=== PATIENT | male | born 1955 | race African-American/Black ===

== ENCOUNTER 2019-08-13 13:50 | Inpatient (IN) | payer MEDICARE, MEDICAID ==
[2019-08-13] MEDS: Piperacillin/Tazobactam 2.25 GM in Sodium Chloride 0.9% 100 ML IVPB SCH (16:03)
--- NOTE | 2019-08-13 16:21 | PDOC.HHP ---
Hospitalist HPI - History of Present Illness altered mental state respiratory failure History of Present Illness: most of the history is obtain from transfer records and transfer physician, patient is disoriented on bipap and is not following commands. Case of an 64y/o male with pmhx of morbid obesity, ckd, hypoventilation syndrome , possible kristen and chronic anemia who went to [facility] due to sob. apparently patient was on his usual state of health until they day of admission 08/09/19 when he started with pronounce sob for which he was taken from his half-way in [place] to the hospital for evaluation. there patient was found to be on symptomatic bradycardia wit the pulse in the 30s and was treated with atropine with improvement of symptoms and admitted for cardiology evaluation. pt also was diagnosed with decompensated systolic failure and treated with diuresis, for which he later developed santi over ckd. during hospitalization patient with clinical decline with worsening altered mental state and worsening respiratory status likely secondary to bradycardia. PPM was placed and patient had a temporary improvement before starting to decline. currently patient is with altered mental state and respiratory failure for which transfer was requested for pulmo / crit evaluation, at this institution. Hospitalist ROS - Review of Systems ROS unobtainable: due to mental status - Medication Medications: Active Medications Generic Name Dose Route Start Last Admin Trade Name Freq PRN Reason Stop Dose Admin Piperacillin Sod/Tazobactam 100 mls @ 200 mls/hr 08/13/19 15:00 08/13/19 16: 03 Sod 2.25 gm/ Sodium Chloride IVPB 100 mls 0700,1500,2300 BHARATHI Administration Hospitalist History - Past Medical History Cardiac: reports: CHF - Past Surgical History Other Surgical History: face mass - Family History Family History: reports: no pertinent history - Social History Other Social History: unable to asses due to mental status - Exam General Appearance: ill appearing Eye: PERRL ENT: normocephalic atraumatic, no oropharyngeal lesions Neck: supple, symmetric, no JVD Heart: RRR, no murmur, no gallops Respiratory: CTAB, no wheezes, no rales Gastrointestinal: soft, non-tender, non-distended Extremities: 2+ LE edema Neurological: cranial nerve grossly intact, no focal deficits Musculoskeletal: generalized weakness Psychiatric: not oriented, somnolent, lethargic Hospitalist H&P A/P - Plan Plan: acute on chronic hypoxic and hypercapnic resp failure - currently on bipap, 02 sat in the upper 90s. pulmo / crit consulted, recommended continued bipap for now, f/u abgs. patient morbid obese with likely hypoventilation syndrome and kristen sinus bradycardia - s/p ppm placement 08/12/19, collections attorney dr zazueta will be consulted acute on chronic systolic chf s/p diuresis, recently started half normal with d5 as per jacker. will consult and follow recommendations acute on chronic renal failure - monitor u/o and cr value, jacker was consolted altered mental state - likely secondary to resp failure hypoxic/hypercapnic. currently on bipap, acidosis improved. r/o metabolic causes. tsh 4.7 ammonia pending, ordered today in CS. f/u cmp. will pancultivate to r/o any infection. prophylactically covered w zosyn acute on chronic anemia - hx of chronic anemia, had traumatic sales placement with hematuria, monitor h/h and transfused as needed morbid obesity htn - continue home meds when able dyslipidemia - continue home meds when able gout - continue home meds when able chronic thrombocytopenai - monitor plts levels, tranfuse if 10 or below
[2019-08-13 17:51] LABS: #Eosinphils 0.1 thou/uL (0.0-0.7); #Lymphocytes 0.9 thou/uL (1.20-3.40); #Monocytes 0.6 thou/uL (0.11-0.59); #Neutrophils 5.6 thou/uL (1.40-6.50); %Basophils 0.2 % (0.0-1.0); %Eosinophils 0.8 % (0.0-10.0); %Lymphocytes 12.3 % (21.0-51.0); %Neutrophils 78.8 % (42.0-75.0); Hemoglobin 8.6 g/dL (14.0-18.0); Mean Corpuscular HGB CONC 28.7 g/dL (32.0-36.0); Mean Corpuscular Hemoglobin 24.4 pg (27.0-31.0); Mean Platelet Volume 8.5 fL (7.4-10.4); Platelet Count 83 thou/uL (130-400); Red Blood Cell (RBC) Count 3.55 mill/uL (4.70-6.10); White Blood Cell (WBC) Count 7.1 thou/uL (4.8-10.8)
[2019-08-13 17:56] LABS: ALT (SGPT) 10 U/L (8-55); AST (SGOT) 23 U/L (5-34); Albumin 2.8 g/dL (3.4-4.8); Alkaline Phosphatase 102 U/L (40-110); Anion Gap 14 mmol/L (10-20); BUN (Urea Nitrogen) 87 mg/dL (8.4-25.7); Bilirubin, Total 0.6 mg/dL (0.2-1.2); Calc. Creatinine Clearance 83 mL/min (70-130); Calcium 8.8 mg/dL (7.8-10.44); Carbon Dioxide 32 mmol/L (23-31); Chloride 103 mmol/L (98-107); Estimated GFR-MDRD 33; Globulin 4.8 g/dL (2.4-3.5); Glucose 82 mg/dL (80-115); Potassium 5.3 mmol/L (3.5-5.1); Protein, Total 7.6 g/dL (5.8-8.1); Sodium 144 mmol/L (136-145)
[2019-08-13 17:58] LABS: Hypochromia SLIGHT = 6-15 cells (100X) (0-5/hpf); MDiff Complete? YES; Ovalocytes SLIGHT = 2-5 cells (100X) (0-1/hpf); Platelet Morphology Comment Appears Decreased; Polychromasia SLIGHT = 2-3 cells (100X) (0-2/hpf)
[2019-08-13] MEDS: Furosemide 20 MG/2 ML VIAL IVP SCH (18:00)
[2019-08-13 19:00] LABS: Bilirubin Negative (Negative); Blood, Urine 2+ (Negative); Clarity Clear (Clear); Glucose, Urine (Dipstick) Normal (Negative); Leukocyte 500 Leu/uL (Negative); Nitrite Negative (Negative); Protein, Urine (Dipstick) 20 mg/dL (Neg-Trace); RBC/HPF Greater than 50 HPF (0-3); Squamous Epithelial None Seen HPF (0-3); Urobilinogen 3 mg/dL (Less than 2)
[2019-08-13 19:10] LABS: WBC/HPF 21-50 HPF (0-3)
[2019-08-13 19:11] LABS: Bacteria/HPF Rare-Few HPF (None Seen)
[2019-08-13 19:12] LABS: Urine Culture Reflex Yes Yes
[2019-08-13] MEDS ORDERED: Dextrose 5 %-0.45 % NaCl 1,000 ML IV SCH (19:15)
--- NOTE | 2019-08-13 20:57 | CON ---
DATE OF CONSULTATION: 08/13/2019 CONSULTING PHYSICIAN: Dr. Brandee Cruz from [facility]. REASON FOR CONSULTATION: Acute hypoxic and hypercapnic respiratory failure. HISTORY OF PRESENT ILLNESS: The patient is a 64-year-old male, who was admitted to the [facility] on 08/09/2019 with increasing shortness of breath. He was transferred to the Intermediate Care Unit there yesterday with increasing shortness of breath and was placed on BiPAP. I was called today by Dr. Cruz, because she was concerned that the patient was too obtunded on the BiPAP. She obtained a blood gas showing a compensated respiratory acidosis on mechanical ventilation. PAST MEDICAL HISTORY: 1. Obesity hypoventilation syndrome. 2. Morbid obesity. 3. Diabetes mellitus. 4. Hypertension. 5. Gout. 6. Diastolic heart dysfunction. PAST SURGICAL HISTORY: Some type of facial surgery in the past. ALLERGIES: NONE. FAMILY MEDICAL HISTORY: Unremarkable. CURRENT MEDICATIONS: Listed on chart. REVIEW OF SYSTEMS: Unobtainable, because the patient is obtunded. PHYSICAL EXAMINATION: VITAL SIGNS: His blood pressure is 116/42, pulse 60, paced, O2 saturation high 90s BiPAP, temperature 98. GENERAL: He is a morbidly obese male, who will wake up. He will follow some commands partially, but then quickly falls back asleep. HEENT: Remarkable for class 4 Mallampati airway. NECK: No adenopathy or JVD. LUNGS: Diminished air entry throughout. CARDIOVASCULAR: S1 and S2, paced. No murmur. ABDOMEN: Morbidly obese, soft. EXTREMITIES: Edematous throughout. LABORATORY DATA: ABG; pH 7.33, pCO2 of 69, pO2 162, bicarbonate level 36. Sodium 145, potassium 5.1, chloride 107, CO2 of 36, BUN 89, creatinine 2.5, glucose 75. White blood cell count 7.2, hematocrit 27.7, and platelet count 83. His x-ray, which I viewed over at [facility] shows subtle infiltrates bilaterally. He had bilateral effusion, which is grossly improved over the last several days after diuresis. ASSESSMENT: 1. Chronic hypoxic hypercapnic respiratory failure. In my opinion, this is likely multifactorial and as a result of obesity hypoventilation syndrome, diastolic heart failure, and fluid overload. 2. Chronic thrombocytopenia. 3. [id number] renal insufficiency. 4. Hypoglycemia. PLAN: 1. I would cover the patient with antibiotics as he could be septic. 2. I would place him on a Lasix drip. 3. Continue the BiPAP as you are doing. 4. I would continue nephrology followup with Dr. Prasad. Thank you for the referral. Job ID: [id number]
[2019-08-14] MEDS: Piperacillin/Tazobactam 2.25 GM in Sodium Chloride 0.9% 100 ML IVPB SCH ×3 (00:12→14:50)
[2019-08-14] MEDS: Furosemide 20 MG/2 ML VIAL IVP SCH ×4 (00:12→17:51)
--- NOTE | 2019-08-14 03:36 | CON ---
DATE OF CONSULTATION: 08/13/2019 CONSULTING PHYSICIAN: Davin Contreras MD. REASON FOR CONSULTATION: Acute kidney injury. REASON FOR ADMISSION: Altered mentation. HISTORY OF PRESENT ILLNESS: A 64-year-old male, with history of CKD, morbid obesity, hypoventilation, came to the hospital with altered mentation. The patient was being seen at [facility] and was found to have worsening clinical status and was transferred over here for higher level of care and higher critical support. No fever or chills. No nausea or vomiting. The patient was confused this morning. The patient was on diuresis at the hospital, but his creatinine got worse and was started on IV fluids this morning. PAST MEDICAL HISTORY: Positive for CHF, obesity, hypoventilation, obstructive sleep apnea, CKD, morbid obesity, anemia. PAST SURGICAL HISTORY: Face mass removal. MEDICATIONS: Reviewed. ALLERGIES: NO KNOWN DRUG ALLERGIES. SOCIAL HISTORY: No smoking, alcohol, or illicit drug abuse. FAMILY HISTORY: No history of kidney disease. REVIEW OF SYSTEMS: Could not be obtained. PHYSICAL EXAMINATION: GENERAL: This is a morbidly obese male with confusion. VITAL SIGNS: Temperature 97.1, pulse 60, respiratory rate 22, blood pressure 147/43. HEENT: On BiPAP. CV: S1, S2 heard. RESPIRATORY: Reduced breath sounds. GI: Abdomen is obese. MUSCULOSKELETAL: 1 to 2+ edema. DERMATOLOGIC: No skin rash. NEUROLOGICAL: Confused. LABORATORY DATA: Hemoglobin is 8.6, potassium 5.3, BUN is 87, and creatinine is 2.4. ASSESSMENT AND PLAN: 1. Acute kidney injury on chronic kidney disease stage 3 with worsening labs. Pulmonology consult. Plan is to have Lasix. He did not respond well to Lasix, but we will stop IV fluids and try Lasix and see how we can achieve better volume status. It is hard to assess his volume status due to his clinical condition. 2. Hyperkalemia. 3. Metabolic alkalosis, most likely secondary to respiratory acidosis. 4. Azotemia. 5. Hypoalbuminemia. 6. Morbid obesity. 7. Obesity and hypoventilation syndrome. 8. Anemia of chronic disease. 9. Pyuria. 10. History of hypertension. 11. History of bradycardia. 12. Prognosis guarded. Monitor renal function. On diuretics. Monitor I's and O's. We will continue to follow. Thank you for the consult. Job ID: [id number]
[2019-08-14 03:38] LABS: #Eosinphils 0.1 thou/uL (0.0-0.7); #Lymphocytes 0.8 thou/uL (1.20-3.40); #Monocytes 0.4 thou/uL (0.11-0.59); #Neutrophils 4.6 thou/uL (1.40-6.50); %Basophils 0.4 % (0.0-1.0); %Eosinophils 1.3 % (0.0-10.0); %Lymphocytes 13.9 % (21.0-51.0); %Monocytes 6.3 % (0.0-10.0); %Neutrophils 78.1 % (42.0-75.0); Hemoglobin 8.8 g/dL (14.0-18.0); Mean Corpuscular HGB CONC 27.8 g/dL (32.0-36.0); Mean Corpuscular Volume 86.4 fL (78.0-98.0); Mean Platelet Volume 10.9 fL (7.4-10.4); Platelet Count 77 thou/uL (130-400); RBC Distribution Width 18.3 % (11.5-14.5); Red Blood Cell (RBC) Count 3.64 mill/uL (4.70-6.10); White Blood Cell (WBC) Count 5.9 thou/uL (4.8-10.8)
[2019-08-14 03:55] LABS: Anion Gap 13 mmol/L (10-20); BUN (Urea Nitrogen) 85 mg/dL (8.4-25.7); Calc. Creatinine Clearance 83 mL/min (70-130); Calcium 8.9 mg/dL (7.8-10.44); Carbon Dioxide 32 mmol/L (23-31); Chloride 103 mmol/L (98-107); Estimated GFR-MDRD 33; Glucose 88 mg/dL (80-115); Magnesium 2.4 mg/dL (1.6-2.6); Phosphorus 3.6 mg/dL (2.3-4.7); Potassium 4.6 mmol/L (3.5-5.1); Sodium 143 mmol/L (136-145)
[2019-08-14] MEDS ORDERED: Piperacillin/Tazobactam 2.25 GM in Sodium Chloride 0.9% 100 ML IVPB SCH (07:30)
[2019-08-14 07:54] LABS: Actual Bicarbonate (HCO3a) 37.2 mEq/L (22-28); Base Excess (BEa) 9.7 mEq/L (-2.0 to +3.0); Calcium, Ionized (arterial) 1.18 mmol/L (1.12-1.30); Carboxyhemoglobin (COHb) 1.2 gm% (0.0-3.0); Hemoglobin (Hb) 9.6 g/dL (14.0-18.0); O2 Tension (PaO2), arterial 139.4 mmHg (> 80.0); Potassium - ABG Lab 4.55 mmol/L (3.70-5.30); pH, Arterial 7.35 (7.35-7.45)
--- NOTE | 2019-08-14 07:59 | RAD ---
EXAM: CHEST ONE VIEW HISTORY: Pneumonia, positive Covid. COMPARISON: 08/12/2019 obtained from [facility]. FINDINGS: Dual lead left subclavian cardiac pacemaking device remains in place. Cardiac silhouette is magnified by projection but does appear enlarged. Bilateral perihilar interstitial opacities are seen with greater opacity now seen involving the right hemithorax. There is question of small bilateral pleural effusions, but this could be related to greater degree of parenchymal lung changes. No other interval change. IMPRESSION: 1. Bilateral perihilar interstitial opacities with greater opacity now seen involving the right hemit horax. Lungs are worrisome for bilateral infectious process. Bilateral pneumonitis in the correct clinical scenario is a possibility. 2. Question of bilateral pleural effusions, but this could be related to greater parenchymal changes at each lung base.
[2019-08-14 08:02] LABS: Puncture Site RRA
[2019-08-14] MEDS: Enoxaparin Sodium 30 MG/0.3 ML SYRINGE SC SCH (08:32)
[2019-08-14] MEDS: Pantoprazole 40 MG VIAL IVP SCH (08:33)
--- NOTE | 2019-08-14 09:21 | PRG ---
DATE OF SERVICE: 08/14/2019 SUBJECTIVE: He remains on the AVAPS noninvasive ventilation. He will groan when spoken to. OBJECTIVE: VITAL SIGNS: Heart rate 60, blood pressure 131/62, O2 sat 100%, respiratory rate 22, and temperature 97.8. HEENT: Unremarkable. NECK: No adenopathy or JVD. LUNGS: Poor air movement. CARDIOVASCULAR: S1 and S2, paced. ABDOMEN: Morbidly obese, soft. EXTREMITIES: Edematous. LABORATORY DATA: White blood cell count 5.9, hematocrit 31.4, and platelet count 77. PH of 7.35, pCO2 of 69, and pO2 of 139. Sodium 143, potassium 4.6, chloride 103, CO2 of 32, BUN 85, creatinine , and glucose 88. ASSESSMENT: 1. Diastolic heart failure with pulmonary edema on x-ray. 2. Fluid overload. 3. Question of concurrent pneumonia. 4. Acute hypoxic respiratory failure. PLAN: 1. Continue diuresis. 2. Continue antibiotics. 3. Watch renal function closely. 4. Monitor lab results. Job ID: [id number]
--- NOTE | 2019-08-14 12:46 | PRG ---
DATE OF SERVICE: 08/14/2019 SUBJECTIVE: A 64-year-old gentleman, being seen for acute kidney injury. PHYSICAL EXAMINATION: General: The patient is awake and alert. The patient is resting. Vital Signs: Afebrile, pulse 60, breathing at 16, blood pressure . HEENT: Head normocephalic and atraumatic. Eyes intact, no ulcers. Nose intact, no ulcers. Ears intact, no ulcers. Neck: Supple. No JVD. Chest: Symmetrical and clear. Cardiovascular: Shows S1 and S2, no rub, no murmur. Gastrointestinal: Abdomen is soft, bowel sounds positive. Extremities: Show no edema or ulcers. Skin: Shows no rash or petechiae. Musculoskeletal: Shows no joint swelling or stiffness. Genitourinary: Shows no Ko or CVA tenderness. Neurologic: The patient is resting. LABORATORY DATA: Hemoglobin 8.8. Creatinine 2.4. Labs reviewed. ASSESSMENT AND PLAN: 1. Chronic kidney disease, stage 4, stable. 2. Hypertension, stable. 3. Anemia, stable. 4. Medication based on GFR, appropriate. No indication for dialysis. Job ID: [id number]
--- NOTE | 2019-08-14 13:51 | PDOC.HOSPP ---
- Subjective Encounter Date: 08/14/19 Encounter Time: 12:00 Subjective: Patient seen and examined for resp failure. On NIPPV. No CP. No new complaints. No overnight events - Objective Vital Signs & Weight: Vital Signs (12 hours) Temp Pulse 08/14/19 12:00 95.8 F L 08/14/19 10:38 63 08/14/19 08:00 98.5 F 08/14/19 06:00 97.8 F 08/14/19 03:23 64 Weight Admit Weight 426 lb Weight 426 lb 9.511 oz Most Recent Monitor Data Heart Rate from ECG 60 NIBP 146/74 NIBP BP-Mean 98 Respiration from ECG 21 SpO2 100 I&O: 08/13/19 08/14/19 08/15/19 06:59 06:59 06:59 Intake Total 200 Output Total 3063 1500 Balance -2863 -1500 Result Diagrams: 08/14/19 03:29 08/14/19 03:29 Additional Labs: Accuchecks 08/13/19 08/13/19 21:57 14:55 POC Glucose 87 83 EKG Reviewed by me: Yes (Tele SR) Hospitalist ROS - Review of Systems Constitutional: denies: fever, chills, sweats, weakness, malaise, other Gastrointestinal: denies: nausea, vomiting, abdominal pain, diarrhea, constipation, melena, hematochezia, other - Medication Medications: Active Medications Generic Name Dose Route Start Last Admin Trade Name Freq PRN Reason Stop Dose Admin Enoxaparin Sodium 30 mg 08/14/19 09:00 08/14/19 08:32 Lovenox SC Not Given 0900 BHARATHI Furosemide 40 mg 08/13/19 18:00 08/14/19 11:51 Lasix IVP 40 mg Q6HR BHARATHI Administration Pantoprazole Sodium 40 mg 08/14/19 09:00 08/14/19 08:33 Protonix IVP 40 mg DAILY BHARATHI Administration - Exam General Appearance: NAD Neck: supple, no JVD Heart: RRR, no gallops, no rubs, normal peripheral pulses Respiratory: no wheezes, no rales, normal chest expansion, rhonchi Gastrointestinal: non-tender, non-distended, normal bowel sounds, no guarding, no rigidity Extremities: no cyanosis, no clubbing, 1+ LE edema Extremities - other findings: no erythema Hosp A/P - Plan DVT proph w/lovenox, DVT proph w/SCDs Acute on chronic hypoxic and hypercapnic resp failure Toxic Metabolic Encephalopathy Obesity hypoventilation syndrome B/L Pneumonia ?Aspiration SSS s/p PM - PM check ok acute on chronic systolic/diastolic HF DELORES on CKD 3 Acute on chronic anemia - Pt had traumatic sales placement with hematuria Morbid obesity BMI 59.5 HTN Thrombocytopenia PLAN: Cont NIPPV PRN Add D5 at KVO PM check ok AM labs Monitor platelets Add Acuchecks when NPO Cont other meds as above
[2019-08-14] MEDS ORDERED: Acetaminophen 325 MG TAB PO PRN (14:00)
[2019-08-14] MEDS ORDERED: Calcium Carbonate 500 MG ChewTAB PO PRN (14:00)
[2019-08-14] MEDS ORDERED: Acetaminophen 650 MG Suppository PR PRN (14:00)
[2019-08-14] MEDS ORDERED: Ondansetron PF 4 MG/2 ML Vial IVP PRN (14:00)
[2019-08-14] MEDS ORDERED: Ondansetron ODT 4 MG TAB PO PRN (14:00)
[2019-08-14] MEDS ORDERED: Senokot S 8.6-50 MG TAB PO PRN (14:00)
[2019-08-14] MEDS ORDERED: Dextrose 5 % And 0.9 % NaCl 1,000 ML IV SCH (14:15)
[2019-08-15] MEDS: Piperacillin/Tazobactam 2.25 GM in Sodium Chloride 0.9% 100 ML IVPB SCH ×4 (01:54→22:05)
[2019-08-15] MEDS: Furosemide 20 MG/2 ML VIAL IVP SCH ×2 (01:54→05:47)
[2019-08-15 03:35] LABS: #Eosinphils 0.1 thou/uL (0.0-0.7); #Lymphocytes 0.8 thou/uL (1.20-3.40); #Monocytes 0.3 thou/uL (0.11-0.59); #Neutrophils 4.3 thou/uL (1.40-6.50); %Basophils 0.2 % (0.0-1.0); %Eosinophils 2.7 % (0.0-10.0); %Lymphocytes 13.7 % (21.0-51.0); %Monocytes 4.8 % (0.0-10.0); %Neutrophils 78.6 % (42.0-75.0); Hemoglobin 8.8 g/dL (14.0-18.0); Mean Corpuscular Hemoglobin 24.4 pg (27.0-31.0); Mean Corpuscular Volume 84.1 fL (78.0-98.0); Platelet Count 72 thou/uL (130-400); RBC Distribution Width 18.4 % (11.5-14.5); Red Blood Cell (RBC) Count 3.59 mill/uL (4.70-6.10); White Blood Cell (WBC) Count 5.5 thou/uL (4.8-10.8)
[2019-08-15 03:53] LABS: Anion Gap 12 mmol/L (10-20); BUN (Urea Nitrogen) 84 mg/dL (8.4-25.7); Calc. Creatinine Clearance 85 mL/min (70-130); Calcium 8.9 mg/dL (7.8-10.44); Carbon Dioxide 34 mmol/L (23-31); Chloride 104 mmol/L (98-107); Estimated GFR-MDRD 34; Glucose 80 mg/dL (80-115); Magnesium 2.4 mg/dL (1.6-2.6); Phosphorus 3.1 mg/dL (2.3-4.7); Potassium 4.4 mmol/L (3.5-5.1); Sodium 146 mmol/L (136-145)
--- NOTE | 2019-08-15 08:19 | PRG ---
DATE OF SERVICE: 08/15/2019 SUBJECTIVE: The patient is much more awake and alert today than he has been. He continues on the AVAPS mode to the BiPAP. OBJECTIVE: VITAL SIGNS: His temperature is 97, pulse 60, blood pressure 124/61, O2 saturation 100%. 24-hour intake 856, output 4924. HEENT: Unremarkable. NECK: No adenopathy or JVD. LUNGS: Diminished breath sounds throughout. CARDIAC: S1 and S2, paced. ABDOMEN: Soft, obese, nontender. EXTREMITIES: Edematous. LABORATORY DATA: White blood cell count 5.5, hematocrit 30, and platelet count 72. Sodium 146, potassium 4.4, chloride 104, CO2 of 34, BUN 84, creatinine 2.3, glucose 80. DIAGNOSTIC DATA: Chest x-ray shows continued bilateral pulmonary edema although it does appear somewhat improved compared to previous x-rays. ASSESSMENT: 1. Acute on chronic hypoxic respiratory failure secondary to diastolic heart failure. 2. Obesity hypoventilation syndrome. 3. Question of concurrent pneumonia. 4. Chronic renal insufficiency. PLAN: 1. Continue the antibiotics. 2. Back down Lasix to twice daily. 3. Try off the BiPAP and see how he tolerates. 4. Can try feeding. Job ID: [id number]
[2019-08-15] MEDS: Pantoprazole 40 MG VIAL IVP SCH (08:55)
[2019-08-15] MEDS: Furosemide 40 MG/4 ML VIAL IVP SCH ×2 (08:55→20:16)
--- NOTE | 2019-08-15 08:58 | RAD ---
PORTABLE CHEST: Date: 08/15/2019 HISTORY: Follow-up pneumonia. COMPARISON: Prior day's exam. FINDINGS: The parenchymal lung changes are not improved as compared to the prior exam. IMPRESSION: Extensive bilateral interstitial alveolar opacities, greater in the right lung, stable as compared to the prior study. POS: FROILAN
[2019-08-15] MEDS: Enoxaparin Sodium 30 MG/0.3 ML SYRINGE SC SCH (09:00)
--- NOTE | 2019-08-15 11:29 | PRG ---
DATE OF SERVICE: SUBJECTIVE: A 64-year-old gentleman being seen for acute kidney injury. The patient is resting. PHYSICAL EXAMINATION: GENERAL: The patient is awake and alert. The patient is resting. VITAL SIGNS: Afebrile, pulse 97, breathing at 16, blood pressure 132/56. HEENT: Head normocephalic and atraumatic. Eyes intact, no ulcers. Nose intact, no ulcers. Ears intact, no ulcers. NECK: Supple. No JVD. CHEST: Symmetrical and clear. CARDIOVASCULAR: Shows S1 and S2, no rub, no murmur. GASTROINTESTINAL: Abdomen is soft, bowel sounds positive. EXTREMITIES: Show no edema or ulcers. SKIN: Shows no rash or petechiae. MUSCULOSKELETAL: Shows no joint swelling or stiffness. GENITOURINARY: Shows no Ko or CVA tenderness. NEUROLOGIC: Motor intact. Cranial nerves intact. LABORATORY DATA: Hemoglobin 8.8. Creatinine 2.3. ASSESSMENT AND PLAN: 1. Acute kidney injury, stable. 2. Hypertension, stable. 3. Anemia, stable. 4. Hypernatremia, would recommend increasing free water and holding Lasix. No indication for dialysis. Job ID: [id number]
--- NOTE | 2019-08-15 13:49 | PDOC.HOSPP ---
- Subjective Encounter Date: 08/15/19 Encounter Time: 09:45 Subjective: Patient seen and examined for resp failure. Off NIPPV. No new complaints. No overnight events - Objective Vital Signs & Weight: Vital Signs (12 hours) Temp Pulse Pulse Ox 08/15/19 12:00 96.6 F L 08/15/19 10:07 97 08/15/19 08:00 97.4 F L 08/15/19 07:37 95 08/15/19 04:00 97.0 F L 08/15/19 02:13 60 Weight Admit Weight 426 lb Weight 426 lb 9.511 oz Most Recent Monitor Data Heart Rate from ECG 60 NIBP 112/51 NIBP BP-Mean 71 Respiration from ECG 29 SpO2 96 I&O: 08/14/19 08/15/19 08/16/19 06:59 06:59 06:59 Intake Total 841 668 4144 Output Total 3063 4924 750 Balance -2863 -4068 310 Result Diagrams: 08/15/19 03:16 08/15/19 03:16 Additional Labs: Accuchecks 08/15/19 08/14/19 00:38 15:59 POC Glucose 75 83 EKG Reviewed by me: Yes (Tele SR) Hospitalist ROS - Review of Systems Cardiovascular: reports: orthopnea, edema. denies: chest pain, palpitations, light headedness, other Gastrointestinal: denies: nausea, vomiting, abdominal pain, diarrhea, constipation, melena, hematochezia, other - Medication Medications: Active Medications Generic Name Dose Route Start Last Admin Trade Name Freq PRN Reason Stop Dose Admin Enoxaparin Sodium 30 mg 08/14/19 09:00 08/15/19 09:00 Lovenox SC Not Given 0900 BHARATHI Furosemide 40 mg 08/15/19 09:00 08/15/19 08:55 Lasix IVP 40 mg BID BHARATHI Administration Piperacillin Sod/Tazobactam 100 mls @ 200 mls/hr 08/14/19 15:00 08/15/19 08: 41 Sod 2.25 gm/ Sodium Chloride IVPB 100 mls 0700,1500,2300 BHARATHI Administration Dextrose/Sodium Chloride 1,000 mls @ 30 mls/hr 08/14/19 14:15 08/14/19 14:50 D5 0.9% Ns IV 1,000 mls .Q24H BHARATHI Administration Pantoprazole Sodium 40 mg 08/14/19 09:00 08/15/19 08:55 Protonix IVP 40 mg DAILY BHARATHI Administration - Exam General Appearance: NAD Neck: supple Heart: RRR, no gallops, no rubs Respiratory: no rales, rhonchi Gastrointestinal: soft, non-tender, normal bowel sounds Extremities: no cyanosis, 1+ LE edema Neurological: no new deficit Psychiatric: normal affect, A&O x 3 Hosp A/P - Plan DVT proph w/lovenox, DVT proph w/SCDs Acute on chronic hypoxic and hypercapnic resp failure Toxic Metabolic Encephalopathy Obesity hypoventilation syndrome B/L Pneumonia ?Aspiration SSS s/p PM - PM check ok acute on chronic systolic/diastolic HF DELORES on CKD 3 Acute on chronic anemia - Pt had traumatic sales placement with hematuria Morbid obesity BMI 59.5 HTN Thrombocytopenia PLAN: Cont NIPPV PRN Cont IV Lasix Cont IV Zosyn AM labs DC IVF Cont other meds as above
[2019-08-16 03:47] LABS: #Eosinphils 0.2 thou/uL (0.0-0.7); #Lymphocytes 0.9 thou/uL (1.20-3.40); #Monocytes 0.5 thou/uL (0.11-0.59); #Neutrophils 4.4 thou/uL (1.40-6.50); %Eosinophils 3.3 % (0.0-10.0); %Neutrophils 73.7 % (42.0-75.0); Hemoglobin 8.7 g/dL (14.0-18.0); Mean Corpuscular HGB CONC 28.4 g/dL (32.0-36.0); Mean Corpuscular Hemoglobin 24.2 pg (27.0-31.0); Mean Corpuscular Volume 85.2 fL (78.0-98.0); Platelet Count 65 thou/uL (130-400); RBC Distribution Width 18.6 % (11.5-14.5); Red Blood Cell (RBC) Count 3.62 mill/uL (4.70-6.10); White Blood Cell (WBC) Count 5.9 thou/uL (4.8-10.8)
[2019-08-16 04:01] LABS: Phosphorus 3.5 mg/dL (2.3-4.7)
[2019-08-16 04:03] LABS: BUN (Urea Nitrogen) 81 mg/dL (8.4-25.7); Calc. Creatinine Clearance 79 mL/min (70-130); Estimated GFR-MDRD 31; Glucose 80 mg/dL (80-115); Magnesium 2.4 mg/dL (1.6-2.6)
[2019-08-16 04:13] LABS: Anion Gap 14 mmol/L (10-20); Carbon Dioxide 34 mmol/L (23-31); Chloride 103 mmol/L (98-107); Potassium 4.6 mmol/L (3.5-5.1); Sodium 146 mmol/L (136-145)
--- NOTE | 2019-08-16 08:33 | PRG ---
DATE OF SERVICE: 08/16/2019 SUBJECTIVE: The patient is awake, alert, following commands, talkative. OBJECTIVE: VITAL SIGNS: Temperature is 97.6, pulse 61, blood pressure 125/60, and O2 saturation 100%. HEENT: Unremarkable. NECK: No JVD. LUNGS: Clear anteriorly. CARDIAC: S1 and S2. Regular. ABDOMEN: Obese, soft, and nontender. EXTREMITIES: Edematous. LABORATORY DATA: White blood cell count 5.9, hematocrit 30, and platelet count 65. Sodium 146, potassium 4.6, chloride 103, CO2 of 24, BUN 81, creatinine 2.5, and glucose 80. Chest x-ray shows bilateral pulmonary edema. ASSESSMENT: 1. Acute diastolic heart failure on top of chronic diastolic heart failure. 2. Acute respiratory failure secondary to heart failure. 3. Obesity hypoventilation syndrome. 4. Chronic renal insufficiency. 5. Question of concurrent pneumonia. PLAN: 1. Given the appearance of the x-ray, I am going to reduce but not completely eliminate the dose of diuretics. 2. He can be transferred to the [facility]. 3. He needs to continue BiPAP at night. 4. We need to continue to monitor his labs. Job ID: [id number]
--- NOTE | 2019-08-16 09:00 | RAD ---
PORTABLE CHEST: HISTORY: Pneumonia followup. COMPARISON: 08/15/2019. FINDINGS: There are bilateral confluent infiltrates which obscure the hemidiaphragms and lung bases bilaterally . Mild cardiomegaly with pacemaker leads again noted. There is aeration in the upper lung puckett. IMPRESSION: Confluent bilateral infiltrates obscuring both lung bases. The bibasilar densities appear more prono unced when compared to yesterday's exam. POS: AGW
[2019-08-16] MEDS: Furosemide 40 MG/4 ML VIAL IVP SCH (09:14)
[2019-08-16] MEDS: Piperacillin/Tazobactam 2.25 GM in Sodium Chloride 0.9% 100 ML IVPB SCH ×3 (09:14→23:26)
[2019-08-16] MEDS: Pantoprazole 40 MG VIAL IVP SCH (09:14)
[2019-08-16] MEDS: Enoxaparin Sodium 30 MG/0.3 ML SYRINGE SC SCH (09:15)
--- NOTE | 2019-08-16 11:26 | PRG ---
DATE OF SERVICE: 08/16/2019 SUBJECTIVE: A 64-year-old male, being seen for acute kidney injury. The patient denied any nausea, vomiting, or chest pain. PHYSICAL EXAMINATION: General: The patient is awake and alert. Vital Signs: Afebrile, pulse 60, breathing at 16, blood pressure 113/53. HEENT: Head normocephalic and atraumatic. Eyes intact, no ulcers. Nose intact, no ulcers. Ears intact, no ulcers. Neck: Supple. No JVD. Chest: Symmetrical and clear. Cardiovascular: Shows S1 and S2, no rub, no murmur. Gastrointestinal: Abdomen is soft, bowel sounds positive. Extremities: Show no edema or ulcers. Skin: Shows no rash or petechiae. Musculoskeletal: Shows no joint swelling or stiffness. Genitourinary: Shows no Ko or CVA tenderness. Neurologic: Motor intact. Cranial nerves intact. LABORATORY DATA: Show hemoglobin 8.7. Sodium 146, creatinine 2.5. ASSESSMENT: 1. Acute kidney injury on chronic kidney disease, stage 3. Mild increase in creatinine. Increase free water. 2. Hypertension, stable. 3. Anemia, stable. 4. Hypernatremia. Increase free water intake and recheck labs in the morning. Job ID: [id number]
--- NOTE | 2019-08-16 11:55 | PDOC.HOSPP ---
- Subjective Encounter Date: 08/16/19 Encounter Time: 10:30 Subjective: Patient seen and examined. No new complaints. No overnight events - Objective Vital Signs & Weight: Vital Signs (12 hours) Temp Pulse BP Pulse Ox 08/16/19 10:54 92.1 F L 08/16/19 09:30 60 116/55 L 96 08/16/19 09:00 96.0 F L 08/16/19 03:00 97.6 F Weight Admit Weight 426 lb Weight 396 lb 6.258 oz Most Recent Monitor Data Heart Rate from ECG 65 NIBP 122/63 NIBP BP-Mean 82 Respiration from ECG 32 SpO2 97 I&O: 08/15/19 08/16/19 08/17/19 06:59 06:59 06:59 Intake Total 856 1820 Output Total 8284 2095 320 Balance -4068 -275 -320 Result Diagrams: 08/16/19 03:21 08/16/19 03:21 Radiology Reviewed by me: Yes EKG Reviewed by me: Yes Hospitalist ROS - Review of Systems Constitutional: reports: weakness, malaise. denies: fever, chills, sweats, other Respiratory: denies: cough, dry, shortness of breath, hemoptysis, SOB with excertion, pleuritic pain, sputum, wheezing, other Cardiovascular: denies: chest pain, palpitations, orthopnea, paroxysmal noc. dyspnea, edema, light headedness, other Gastrointestinal: denies: nausea, vomiting, abdominal pain, diarrhea, constipation, melena, hematochezia, other Genitourinary: denies: dysuria, frequency, incontinence, hematuria, retention, other Musculoskeletal: denies: neck pain, shoulder pain, arm pain, back pain, hand pain, leg pain, foot pain, other - Medication Medications: Active Medications Generic Name Dose Route Start Last Admin Trade Name Freq PRN Reason Stop Dose Admin Enoxaparin Sodium 30 mg 08/14/19 09:00 08/16/19 09:15 Lovenox SC Not Given 0900 BHARATHI Furosemide 40 mg 08/16/19 09:00 08/16/19 09:14 Lasix IVP 40 mg DAILY BHARATHI Administration Piperacillin Sod/Tazobactam 100 mls @ 200 mls/hr 08/14/19 15:00 08/16/19 09: 14 Sod 2.25 gm/ Sodium Chloride IVPB 100 mls 0700,1500,2300 BHARATHI Administration Pantoprazole Sodium 40 mg 08/14/19 09:00 08/16/19 09:14 Protonix IVP 40 mg DAILY BHARATHI Administration - Exam General Appearance: NAD, ill appearing Eye: PERRL, anicteric sclera ENT: normocephalic atraumatic, no oropharyngeal lesions Neck: supple, symmetric, no JVD Heart: RRR, no murmur, no gallops, no rubs Heart - other findings: Respiratory: no wheezes, rales Gastrointestinal: soft, non-tender, non-distended Gastrointestinal - other findings: morbid obesity limiting examination Extremities: 2+ LE edema Skin: normal turgor, no lesions Neurological: no focal deficits Musculoskeletal: normal tone, normal strength Psychiatric: normal affect, normal behavior Hosp A/P - Plan old records reviewed/req Assessment: Acute on chronic hypoxic and hypercapnic resp failure Acute Metabolic Encephalopathy Obesity hypoventilation syndrome B/L Pneumonia ?Aspiration SSS s/p Pacemaker acute on chronic systolic/diastolic HF DELORES on CKD 3 Acute on chronic anemia - Pt had traumatic sales placement with hematuria Morbid obesity BMI 59.5 HTN Thrombocytopenia physical deconditioning Plan: Continue bipap continue lasix continue zosyn he will need placement on discharge medication reviewed and continue to provide symptomatic care, supportive care PT as tolerated
[2019-08-16] MEDS: Saccharomyces boulardii 250 MG CAP PO SCH (12:35)
[2019-08-16] MEDS: Aspirin 81 mg Enteric Coated Tablet PO SCH (12:35)
[2019-08-17] MEDS ORDERED: Dextrose 50% Abboject 50 ML SYRINGE SLOW IVP PRN (00:14)
[2019-08-17] MEDS ORDERED: Dextrose 5% in Water 1,000 ML IV PRN (00:14)
[2019-08-17 03:40] LABS: #Eosinphils 0.1 thou/uL (0.0-0.7); #Lymphocytes 1.2 thou/uL (1.20-3.40); #Monocytes 0.8 thou/uL (0.11-0.59); #Neutrophils 5.3 thou/uL (1.40-6.50); %Basophils 0.4 % (0.0-1.0); %Eosinophils 1.8 % (0.0-10.0); %Lymphocytes 16.4 % (21.0-51.0); %Monocytes 10.5 % (0.0-10.0); %Neutrophils 70.9 % (42.0-75.0); Hemoglobin 8.4 g/dL (14.0-18.0); Mean Corpuscular HGB CONC 29.4 g/dL (32.0-36.0); Mean Corpuscular Hemoglobin 24.9 pg (27.0-31.0); Mean Corpuscular Volume 84.6 fL (78.0-98.0); Mean Platelet Volume 7.7 fL (7.4-10.4); Platelet Count 64 thou/uL (130-400); RBC Distribution Width 18.5 % (11.5-14.5); Red Blood Cell (RBC) Count 3.39 mill/uL (4.70-6.10); White Blood Cell (WBC) Count 7.5 thou/uL (4.8-10.8)
[2019-08-17 03:56] LABS: Phosphorus 3.3 mg/dL (2.3-4.7)
[2019-08-17 04:00] LABS: BUN (Urea Nitrogen) 83 mg/dL (8.4-25.7); Calc. Creatinine Clearance 68 mL/min (70-130); Estimated GFR-MDRD 29; Glucose 69 mg/dL (80-115); Magnesium 2.3 mg/dL (1.6-2.6)
[2019-08-17 04:10] LABS: Anion Gap 17 mmol/L (10-20); Carbon Dioxide 33 mmol/L (23-31); Chloride 103 mmol/L (98-107); Potassium 4.8 mmol/L (3.5-5.1); Sodium 148 mmol/L (136-145)
[2019-08-17] MEDS: Piperacillin/Tazobactam 2.25 GM in Sodium Chloride 0.9% 100 ML IVPB SCH ×3 (06:23→23:43)
--- NOTE | 2019-08-17 10:14 | PRG ---
DATE OF SERVICE: 08/17/2019 SUBJECTIVE: The patient is feeling better, had no acute complaints. OBJECTIVE: VITAL SIGNS: His temperature is 97.0, pulse 60, blood pressure 113/44, O2 saturation 92%. 24-hour intake 1820, output 2094. HEENT: Unremarkable. NECK: JVD. LUNGS: Diminished breath sounds throughout. CARDIAC: S1, S2. Regular. ABDOMEN: Soft. EXTREMITIES: No edema. LABORATORY DATA: White blood cell count 7.5, hematocrit 28.6, and platelet count 64. Sodium 148, potassium 4.8, chloride 103, CO2 of 33, BUN 83, creatinine 2.7, glucose 69. ASSESSMENT: 1. Obstructive sleep apnea/obesity hypoventilation syndrome. 2. Status post hypercapnic respiratory failure. 3. Likely underlying severe obstructive sleep apnea. 4. Chronic renal insufficiency with increasing sodium. PLAN: 1. We will go ahead and hold his diuretics for the time being. These will have to be resumed at some point in the future. 2. It is not clear to me whether or not he has ever had an outpatient sleep study. At some point, Dr. Parker saw him in 2012 and the study was ordered, but I cannot find records if that was completed. I will look in the office to see what information we have and I will discuss with Dr. Parker. Job ID: [id number]
--- NOTE | 2019-08-17 10:57 | PDOC.HOSPP ---
- Subjective Encounter Date: 08/17/19 Encounter Time: 09:30 Subjective: pt was NPO this morning as he has oropharyngeal dysphagia, pt does not want any peg tube placement, so we started diet with risk, his renal function is getting worse today, diuretics on hold, he is very weak, no fever. - Objective Vital Signs & Weight: Vital Signs (12 hours) Pulse 08/17/19 00:47 60 Weight Admit Weight 426 lb Weight 393 lb 1.347 oz Most Recent Monitor Data Heart Rate from ECG 60 NIBP 113/44 NIBP BP-Mean 67 Respiration from ECG 16 SpO2 92 I&O: 08/16/19 08/17/19 08/18/19 06:59 06:59 06:59 Intake Total 1820 621 Output Total 2095 1170 Balance -275 -549 Result Diagrams: 08/17/19 03:20 08/17/19 03:20 Additional Labs: Accuchecks 08/17/19 08/16/19 08/16/19 05:48 23:56 18:08 POC Glucose 76 65 L 78 EKG Reviewed by me: Yes Hospitalist ROS - Review of Systems Constitutional: reports: weakness, malaise. denies: fever, chills, sweats, other ENT: denies: ear pain, ear discharge, nose pain, nose discharge, nose congestion , mouth pain, mouth swelling, throat pain, throat swelling, other Respiratory: reports: shortness of breath, SOB with excertion. denies: cough, dry, hemoptysis, pleuritic pain, sputum, wheezing, other Cardiovascular: reports: edema. denies: chest pain, palpitations, orthopnea, paroxysmal noc. dyspnea, light headedness, other Gastrointestinal: denies: nausea, vomiting, abdominal pain, diarrhea, constipation, melena, hematochezia, other Genitourinary: denies: dysuria, frequency, incontinence, hematuria, retention, other Musculoskeletal: denies: neck pain, shoulder pain, arm pain, back pain, hand pain, leg pain, foot pain, other - Medication Medications: Active Medications Generic Name Dose Route Start Last Admin Trade Name Freq PRN Reason Stop Dose Admin Aspirin 81 mg 08/16/19 09:00 08/16/19 12:35 Ecotrin PO 81 mg DAILY BHARATHI Administration Dextrose/Water 25 gm 08/17/19 00:14 08/17/19 00:25 Dextrose 50% SLOW IVP 25 gm PRN PRN Administration Hypoglycemia Enoxaparin Sodium 30 mg 08/14/19 09:00 08/16/19 09:15 Lovenox SC Not Given 0900 BHARATHI Piperacillin Sod/Tazobactam 100 mls @ 200 mls/hr 08/14/19 15:00 08/17/19 06: 23 Sod 2.25 gm/ Sodium Chloride IVPB 100 mls 0700,1500,2300 BHARATHI Administration Pantoprazole Sodium 40 mg 08/14/19 09:00 08/16/19 09:14 Protonix IVP 40 mg DAILY BHARATHI Administration Saccharomyces Boulardii 250 mg 08/16/19 09:00 08/16/19 12:35 Florastor PO 250 mg DAILY BHARATHI Administration - Exam General Appearance: NAD, awake alert, ill appearing Eye: PERRL, anicteric sclera ENT: normocephalic atraumatic, no oropharyngeal lesions Neck: supple, symmetric Heart: RRR, no murmur, no gallops, no rubs Heart - other findings: morbid obesity limiting exam Respiratory - other findings: air entry reduced at base, obesity limiting exam Gastrointestinal: soft, non-tender Gastrointestinal - other findings: morbid obesity Extremities: 2+ LE edema Extremities - other findings: chronic skin changes, venous stasis changes Skin: normal turgor Neurological: no focal deficits Musculoskeletal: normal tone, normal strength Psychiatric: normal affect, normal behavior Hosp A/P - Plan old records reviewed/req, sales catheter, continue antibiotics, PT/OT, pediatric social worker, speech therapy, respiratory therapy, DVT proph w/lovenox Assessment: Acute on chronic hypoxic and hypercapnic resp failure Acute Metabolic Encephalopathy Obesity hypoventilation syndrome B/L Pneumonia ?Aspiration SSS s/p Pacemaker acute on chronic systolic/diastolic HF DELORES on CKD 3 Acute on chronic anemia - Pt had traumatic sales placement with hematuria Morbid obesity BMI 59.5 HTN Thrombocytopenia physical deconditioning Plan: Continue bipap lasix discontinued today due to elevated creatinine start diet with risk continue zosyn he will need placement on discharge medication reviewed and continue to provide symptomatic care, supportive care PT as tolerated prognosis guarded fluid restriction
[2019-08-17] MEDS: Aspirin 81 mg Enteric Coated Tablet PO SCH (11:07)
[2019-08-17] MEDS: Enoxaparin Sodium 30 MG/0.3 ML SYRINGE SC SCH (11:07)
[2019-08-17] MEDS: Pantoprazole 40 MG VIAL IVP SCH (11:08)
[2019-08-17] MEDS: Saccharomyces boulardii 250 MG CAP PO SCH (11:08)
--- NOTE | 2019-08-17 12:17 | PRG ---
DATE OF SERVICE: 08/17/2019 SUBJECTIVE: This is a 64-year-old gentleman, being seen for acute kidney injury. The patient denied nausea, vomiting or chest pain. OBJECTIVE: General: The patient is awake and alert. Vital Signs: Afebrile, pulse 60, breathing 16, and blood pressure 127/53. HEENT: Head normocephalic and atraumatic. Eyes intact, no ulcers. Nose intact, no ulcers. Ears intact, no ulcers. Neck: Supple. No JVD. Chest: Symmetrical and clear. Cardiovascular: Shows S1 and S2, no rub, no murmur. Gastrointestinal: Abdomen is soft, bowel sounds positive. Extremities: Show no edema or ulcers. Skin: Shows no rash or petechiae. Musculoskeletal: Shows no joint swelling or stiffness. Genitourinary: Shows no Ko or CVA tenderness. Neurologic: Motor intact. Cranial nerves intact. LABORATORY DATA: Hemoglobin 8.4 and creatinine 2.7. IMPRESSION: Acute kidney injury, improved. Chronic kidney disease, stage 4, stable. Hypertension, stable. Hypernatremia. Recommend increased fluid for intake. As the renal function keeps improving, I will sign off. Increase hydration. Job ID: [id number]
[2019-08-17] MEDS: Furosemide 40 MG/4 ML VIAL IVP SCH (19:55)
[2019-08-18 04:32] LABS: Phosphorus 3.5 mg/dL (2.3-4.7)
[2019-08-18 04:35] LABS: BUN (Urea Nitrogen) 80 mg/dL (8.4-25.7); Calc. Creatinine Clearance 70 mL/min (70-130); Estimated GFR-MDRD 30; Glucose 72 mg/dL (80-115); Magnesium 2.3 mg/dL (1.6-2.6)
[2019-08-18 04:49] LABS: Chloride 105 mmol/L (98-107); Potassium 4.8 mmol/L (3.5-5.1); Sodium 149 mmol/L (136-145)
[2019-08-18 04:52] LABS: Anion Gap 16 mmol/L (10-20); Carbon Dioxide 33 mmol/L (23-31)
[2019-08-18 05:02] LABS: #Eosinphils 0.2 thou/uL (0.0-0.7); #Lymphocytes 1.2 thou/uL (1.20-3.40); #Monocytes 0.5 thou/uL (0.11-0.59); %Basophils 0.4 % (0.0-1.0); %Lymphocytes 20.1 % (21.0-51.0); %Monocytes 8.8 % (0.0-10.0); %Neutrophils 67.7 % (42.0-75.0); Anisocytosis SLIGHT = 6-15 cells (100X) (0-5/hpf); Elliptocytes SLIGHT = 2-5 cells (100X) (0-1/hpf); Hemoglobin 8.1 g/dL (14.0-18.0); Large Platelets SLIGHT; MDiff Complete? YES; Mean Corpuscular HGB CONC 29.2 g/dL (32.0-36.0); Mean Corpuscular Hemoglobin 24.6 pg (27.0-31.0); Mean Platelet Volume 12.7 fL (7.4-10.4); Platelet Count 63 thou/uL (130-400); Platelet Morphology Comment Appears Decreased; RBC Distribution Width 18.3 % (11.5-14.5); White Blood Cell (WBC) Count 5.8 thou/uL (4.8-10.8)
[2019-08-18] MEDS: Piperacillin/Tazobactam 2.25 GM in Sodium Chloride 0.9% 100 ML IVPB SCH ×3 (08:58→22:59)
[2019-08-18] MEDS: Saccharomyces boulardii 250 MG CAP PO SCH (08:58)
[2019-08-18] MEDS: Aspirin 81 mg Enteric Coated Tablet PO SCH (08:58)
[2019-08-18] MEDS: Enoxaparin Sodium 30 MG/0.3 ML SYRINGE SC SCH (09:01)
[2019-08-18] MEDS: Pantoprazole 40 MG VIAL IVP SCH (09:03)
--- NOTE | 2019-08-18 09:05 | PRG ---
DATE OF SERVICE: 08/18/2019 SUBJECTIVE: A 64-year-old gentleman, being seen for acute kidney injury. The patient denied nausea, vomiting, or chest pain. PHYSICAL EXAMINATION: GENERAL: The patient is awake and alert. VITAL SIGNS: Afebrile, pulse 60, breathing at 16, blood pressure . HEENT: Head normocephalic and atraumatic. Eyes intact, no ulcers. Nose intact, no ulcers. Ears intact, no ulcers. Neck: Supple. No JVD. Chest: Symmetrical and clear. Cardiovascular: Shows S1 and S2, no rub, no murmur. Gastrointestinal: Abdomen is soft, bowel sounds positive. Extremities: Show no edema or ulcers. Skin: Shows no rash or petechiae. Musculoskeletal: Shows no joint swelling or stiffness. Genitourinary: Shows no Ko or CVA tenderness. Neurologic: Motor intact. Cranial nerves intact. LABORATORY DATA: Reviewed. ASSESSMENT AND PLAN: 1. Chronic kidney disease stage 3, stable. 2. Acute kidney injury, stable. 3. Hypernatremia. Recommend increase free water rechecking sodium later in the day. I will sign off on this patient. Please reconsult as needed. Job ID: [id number]
--- NOTE | 2019-08-18 10:09 | PRG ---
DATE OF SERVICE: 08/18/2019 SUBJECTIVE: The patient is sitting up on the bed, doing better today. He has no complaints. OBJECTIVE: VITAL SIGNS: On exam, temperature 96.8, pulse 62, blood pressure 118/47, and O2 saturation 95%. HEENT: Unremarkable. NECK: No adenopathy or JVD. LUNGS: Diminished throughout. CARDIAC: S1 and S2, regular. ABDOMEN: Morbidly obese. EXTREMITIES: Edematous. LABORATORY DATA: White blood cell count 5.8, hematocrit 27, and platelet count 63. Sodium 149, potassium 4.8, chloride 105, CO2 of 33, BUN 80, creatinine 2.6, and glucose 72. ASSESSMENT: 1. Diastolic heart failure. 2. Morbid obesity. 3. Underlying obstructive sleep apnea/obesity hypoventilation syndrome. PLAN: In my opinion, he is stable enough to move out to the floor. His diuretics are being held. He has had a sleep study in the past. He has seen Dr. Parker back in 2012. He never followed up after the study. I will be out for the next several days. Dr. Mckeon will assume care over the weekend. Dr. Parker will assume care of this patient next week. Job ID: [id number]
--- NOTE | 2019-08-18 10:18 | PDOC.HOSPP ---
- Subjective Encounter Date: 08/18/19 Encounter Time: 07:30 Subjective: Patient seen and examined. No new complaints. No overnight events - Objective Vital Signs & Weight: Vital Signs (12 hours) Temp Pulse Ox 08/18/19 08:11 97.5 F L 08/18/19 08:00 98 08/18/19 04:00 98 Weight Admit Weight 426 lb Weight 393 lb 1.347 oz Most Recent Monitor Data Heart Rate from ECG 63 NIBP 118/47 NIBP BP-Mean 70 Respiration from ECG 20 SpO2 95 I&O: 08/17/19 08/18/19 08/19/19 06:59 06:59 06:59 Intake Total 621 1370 Output Total 1170 1400 Balance -549 -30 Result Diagrams: 08/18/19 03:17 08/18/19 03:17 Additional Labs: Accuchecks 08/18/19 08/17/19 08/17/19 07:07 22:59 18:27 POC Glucose 81 94 114 H 08/17/19 12:15 POC Glucose 95 EKG Reviewed by me: Yes Hospitalist ROS - Review of Systems Constitutional: reports: weakness, malaise. denies: fever, chills, sweats, other ENT: denies: ear pain, ear discharge, nose pain, nose discharge, nose congestion , mouth pain, mouth swelling, throat pain, throat swelling, other Respiratory: reports: shortness of breath, SOB with excertion. denies: cough, dry, hemoptysis, pleuritic pain, sputum, wheezing, other Cardiovascular: denies: chest pain, palpitations, orthopnea, paroxysmal noc. dyspnea, edema, light headedness, other Gastrointestinal: denies: nausea, vomiting, abdominal pain, diarrhea, constipation, melena, hematochezia, other Genitourinary: denies: dysuria, frequency, incontinence, hematuria, retention, other Musculoskeletal: denies: neck pain, shoulder pain, arm pain, back pain, hand pain, leg pain, foot pain, other - Medication Medications: Active Medications Generic Name Dose Route Start Last Admin Trade Name Freq PRN Reason Stop Dose Admin Aspirin 81 mg 08/16/19 09:00 08/18/19 08:58 Ecotrin PO 81 mg DAILY BHARATHI Administration Dextrose/Water 25 gm 08/17/19 00:14 08/17/19 00:25 Dextrose 50% SLOW IVP 25 gm PRN PRN Administration Hypoglycemia Enoxaparin Sodium 30 mg 08/14/19 09:00 08/18/19 09:01 Lovenox SC Not Given 0900 BHARATHI Piperacillin Sod/Tazobactam 100 mls @ 200 mls/hr 08/14/19 15:00 08/18/19 08: 58 Sod 2.25 gm/ Sodium Chloride IVPB 100 mls 0700,1500,2300 BHARATHI Administration Pantoprazole Sodium 40 mg 08/14/19 09:00 08/18/19 09:03 Protonix IVP 40 mg DAILY BHARATHI Administration Saccharomyces Boulardii 250 mg 08/16/19 09:00 08/18/19 08:58 Florastor PO 250 mg DAILY BHARATHI Administration Sodium Chloride 10 ml 08/14/19 14:00 08/17/19 23:43 Flush - Normal Saline IVF 10 ml PRN PRN Administration Saline Flush - Exam General Appearance: NAD, awake alert, ill appearing Eye: PERRL, anicteric sclera ENT: normocephalic atraumatic, no oropharyngeal lesions Neck: supple, symmetric Heart: RRR, no murmur, no gallops, no rubs Respiratory: CTAB, no wheezes, no rales Respiratory - other findings: morbid obesity limiting exam Gastrointestinal: soft, non-tender, non-distended Gastrointestinal - other findings: morbid obesity+ Extremities: 2+ LE edema Skin: normal turgor, no lesions Neurological: no focal deficits Musculoskeletal: normal tone, normal strength Psychiatric: normal affect, normal behavior Hosp A/P - Plan old records reviewed/req, PT/OT, long term care social worker, respiratory therapy, DVT proph w/lovenox Assessment: Acute on chronic hypoxic and hypercapnic resp failure Acute Metabolic Encephalopathy Obesity hypoventilation syndrome B/L Pneumonia ?Aspiration SSS s/p Pacemaker acute on chronic systolic/diastolic HF DELORES on CKD 3 Acute on chronic anemia - Pt had traumatic sales placement with hematuria Morbid obesity BMI 59.5 HTN Thrombocytopenia physical deconditioning Plan: Continue bipap when sleep continue to hold lasix due to elevated creatinine continue modified diet with risk continue zosyn he will need placement on discharge medication reviewed and continue to provide symptomatic care, supportive care PT as tolerated prognosis guarded fluid restriction will get echo as per protocol
[2019-08-19 06:54] LABS: Phosphorus 4.2 mg/dL (2.3-4.7)
[2019-08-19 06:56] LABS: Anion Gap 13 mmol/L (10-20); BUN (Urea Nitrogen) 78 mg/dL (8.4-25.7); Calc. Creatinine Clearance 74 mL/min (70-130); Calcium 9.2 mg/dL (7.8-10.44); Carbon Dioxide 33 mmol/L (23-31); Chloride 105 mmol/L (98-107); Estimated GFR-MDRD 32; Glucose 73 mg/dL (80-115); Magnesium 2.3 mg/dL (1.6-2.6); Potassium 4.5 mmol/L (3.5-5.1); Sodium 146 mmol/L (136-145)
[2019-08-19 07:38] LABS: #Eosinphils 0.2 thou/uL (0.0-0.7); #Lymphocytes 1.1 thou/uL (1.20-3.40); #Monocytes 0.5 thou/uL (0.11-0.59); #Neutrophils 4.9 thou/uL (1.40-6.50); %Basophils 0.5 % (0.0-1.0); %Eosinophils 3.1 % (0.0-10.0); %Lymphocytes 16.8 % (21.0-51.0); %Monocytes 7.6 % (0.0-10.0); %Neutrophils 72.1 % (42.0-75.0); Anisocytosis MODERATE=16-30 cells (100X) (0-5/hpf); Band 3 % (5-11); Eosinophils 1 % (0-10); Hemoglobin 8.3 g/dL (14.0-18.0); Lymphocytes 31 % (21-51); MDiff Complete? YES; Mean Corpuscular HGB CONC 28.3 g/dL (32.0-36.0); Mean Corpuscular Hemoglobin 24.3 pg (27.0-31.0); Mean Corpuscular Volume 86.2 fL (78.0-98.0); Mean Platelet Volume 11.1 fL (7.4-10.4); Monocytes 6 % (0-10); Neutrophil 59 % (42-75); Ovalocytes SLIGHT = 2-5 cells (100X) (0-1/hpf); Platelet Count 60 thou/uL (130-400); Platelet Morphology Comment Appears Decreased; RBC Distribution Width 18.6 % (11.5-14.5); Red Blood Cell (RBC) Count 3.41 mill/uL (4.70-6.10); Target Cells SLIGHT = 2-5 cells (100X) (0-1/hpf); White Blood Cell (WBC) Count 6.8 thou/uL (4.8-10.8)
[2019-08-19] MEDS: Piperacillin/Tazobactam 2.25 GM in Sodium Chloride 0.9% 100 ML IVPB SCH ×3 (08:40→22:38)
[2019-08-19] MEDS: Saccharomyces boulardii 250 MG CAP PO SCH (08:41)
[2019-08-19] MEDS: Aspirin 81 mg Enteric Coated Tablet PO SCH (08:41)
[2019-08-19] MEDS: Pantoprazole 40 MG VIAL IVP SCH (08:41)
[2019-08-19] MEDS: Enoxaparin Sodium 30 MG/0.3 ML SYRINGE SC SCH (08:41)
--- NOTE | 2019-08-19 10:43 | PRG ---
DATE OF SERVICE: 08/19/2019 SUBJECTIVE: A 64-year-old gentleman is being seen for acute kidney injury. The patient denied any nausea, vomiting, or chest pain. OBJECTIVE: General: The patient is awake and alert. Vital Signs: Afebrile, pulse 60, breathing at 16, blood pressure 130/78. HEENT: Head normocephalic and atraumatic. Eyes intact, no ulcers. Nose intact, no ulcers. Ears intact, no ulcers. NECK: Supple. No JVD. CHEST: Symmetrical and clear. CARDIOVASCULAR: Shows S1 and S2, no rub, no murmur. GASTROINTESTINAL: Abdomen is soft, bowel sounds positive. EXTREMITIES: Show no edema or ulcers. SKIN: Shows no rash or petechiae. MUSCULOSKELETAL: Shows no joint swelling or stiffness. GENITOURINARY: Shows no Ko or CVA tenderness. NEUROLOGIC: Motor intact. Cranial nerves intact. LABORATORY DATA: Hemoglobin 8.3. Sodium 146, creatinine 2.4. ASSESSMENT AND PLAN: 1. Acute kidney injury with chronic kidney disease, stable. 2. Hypertension, stable. 3. Anemia, stable. 4. Hypernatremia. Continue free water. No indication for dialysis. I will sign off on this patient. Please reconsult as needed. Job ID: [id number]
--- NOTE | 2019-08-19 12:25 | PRG ---
DATE OF SERVICE: 08/19/2019 SUBJECTIVE: This morning, he is lying in bed. OBJECTIVE: VITAL SIGNS: Temperature 97, pulse 60, respirations 18, saturations are 100% on 2 L, blood pressure 121/73. He has chronic stasis. CHEST: Anterior rhonchi. CARDIAC: Normal S1 and S2. No gallops. ABDOMEN: Massive. LABORATORY DATA: Creatinine is 7.48, BUN is 78. White count is 6000. ASSESSMENT: Morbid obesity, sleep apnea, renal failure, and diastolic dysfunction. PLAN: At this stage, continue aggressive PT. Weight loss. We will follow. Job ID: [id number]
--- NOTE | 2019-08-19 12:42 | PDOC.HOSPP ---
- Subjective Encounter Date: 08/19/19 Encounter Time: 09:00 Subjective: no sob or pain no new complaints is not fully oriented but responds to verbal questions - Objective Vital Signs & Weight: Vital Signs (12 hours) Temp Pulse Resp BP Pulse Ox 08/19/19 07:57 97.6 F 60 18 121/73 100 Weight Admit Weight 426 lb Weight 393 lb 1.347 oz Most Recent Monitor Data Heart Rate from ECG 60 NIBP 137/59 NIBP BP-Mean 85 Respiration from ECG 27 SpO2 99 I&O: 08/18/19 08/19/19 08/20/19 06:59 06:59 06:59 Intake Total 1370 1080 Output Total 1400 1200 Balance -30 -120 Result Diagrams: 08/19/19 06:19 08/19/19 06:19 Additional Labs: Accuchecks 08/19/19 08/18/19 08/18/19 03:43 19:33 16:24 POC Glucose 82 106 162 H Hospitalist ROS - Medication Medications: Active Medications Generic Name Dose Route Start Last Admin Trade Name Vinceq PRN Reason Stop Dose Admin Aspirin 81 mg 08/16/19 09:00 08/19/19 08:41 Ecotrin PO 81 mg DAILY BHARATHI Administration Dextrose/Water 25 gm 08/17/19 00:14 08/17/19 00:25 Dextrose 50% SLOW IVP 25 gm PRN PRN Administration Hypoglycemia Piperacillin Sod/Tazobactam 100 mls @ 200 mls/hr 08/14/19 15:00 08/19/19 08: 40 Sod 2.25 gm/ Sodium Chloride IVPB 100 mls 0700,1500,2300 BHARATHI Administration Saccharomyces Boulardii 250 mg 08/16/19 09:00 08/19/19 08:41 Florastor PO 250 mg DAILY BHARATHI Administration Sodium Chloride 10 ml 08/14/19 14:00 08/17/19 23:43 Flush - Normal Saline IVF 10 ml PRN PRN Administration Saline Flush - Exam General Appearance: awake alert Eye: PERRL, anicteric sclera ENT: normocephalic atraumatic, moist mucosa Neck: supple, no JVD Heart: RRR, no murmur Respiratory: no wheezes, rales Gastrointestinal: soft, non-tender, non-distended, normal bowel sounds Extremities: no cyanosis, 2+ LE edema Neurological: cranial nerve grossly intact, no focal deficits Hosp A/P (1) Anasarca Code(s): R60.1 - GENERALIZED EDEMA Status: Acute (2) Morbid obesity with BMI of 50.0-59.9, adult Code(s): E66.01 - MORBID (SEVERE) OBESITY DUE TO EXCESS CALORIES; Z68.43 - BODY MASS INDEX (BMI) 50.0-59.9, ADULT Status: Acute (3) Acute and chronic respiratory failure with hypoxia Code(s): J96.21 - ACUTE AND CHRONIC RESPIRATORY FAILURE WITH HYPOXIA Status: Acute (4) Hypoventilation syndrome Code(s): R06.89 - OTHER ABNORMALITIES OF BREATHING Status: Acute (5) Aspiration pneumonia Code(s): J69.0 - PNEUMONITIS DUE TO INHALATION OF FOOD AND VOMIT Status: Acute Qualifiers: Aspiration pneumonia type: due to regurgitated food Laterality: bilateral Lung location: lower lobe of lung Qualified Code(s): J69.0 - Pneumonitis due to inhalation of food and vomit (6) Acute exacerbation of CHF (congestive heart failure) Code(s): I50.9 - HEART FAILURE, UNSPECIFIED Status: Acute Qualifiers: Heart failure type: combined systolic and diastolic Qualified Code(s): I50.43 - Acute on chronic combined systolic (congestive) and diastolic ( congestive) heart failure (7) SANTI (acute kidney injury) Code(s): N17.9 - ACUTE KIDNEY FAILURE, UNSPECIFIED Status: Acute (8) CKD (chronic kidney disease) stage 4, GFR 15-29 ml/min Code(s): N18.4 - CHRONIC KIDNEY DISEASE, STAGE 4 (SEVERE) Status: Chronic (9) Chronic anemia Code(s): D64.9 - ANEMIA, UNSPECIFIED Status: Chronic (10) chronic thrombocytopenia Status: Chronic - Plan poor prognosis with multiple medical issues in addition to bmi of 54, poor functional status, generalized edema needing diuresis with santi/ckd and elevated hco3 continue zosyn, asp, protonix bipap/cpap when asleep will need placement PT/OT to mobiize as tolerated Palliative care consultation for code status and goals of care I did d/w patient about code status, he wants everything done, not sure is he really understood what I was saying despite asking multiple times in different ways (is not fully oriented). Is at risk for resp failure and renal failure
[2019-08-19] MEDS: Furosemide 40 MG/4 ML VIAL SLOW IVP SCH (13:52)
[2019-08-20] MEDS: Furosemide 40 MG/4 ML VIAL SLOW IVP SCH ×2 (05:37→13:49)
[2019-08-20] MEDS: Piperacillin/Tazobactam 2.25 GM in Sodium Chloride 0.9% 100 ML IVPB SCH ×3 (05:42→23:46)
[2019-08-20 06:07] LABS: Phosphorus 4.2 mg/dL (2.3-4.7)
[2019-08-20 06:08] LABS: Anion Gap 15 mmol/L (10-20); BUN (Urea Nitrogen) 81 mg/dL (8.4-25.7); Calc. Creatinine Clearance 75 mL/min (70-130); Carbon Dioxide 32 mmol/L (23-31); Chloride 104 mmol/L (98-107); Estimated GFR-MDRD 32; Glucose 85 mg/dL (80-115); Magnesium 2.4 mg/dL (1.6-2.6); Potassium 4.5 mmol/L (3.5-5.1); Sodium 146 mmol/L (136-145)
[2019-08-20 06:39] LABS: Hemoglobin 8.7 g/dL (14.0-18.0); Mean Corpuscular HGB CONC 28.1 g/dL (32.0-36.0); Mean Corpuscular Hemoglobin 23.8 pg (27.0-31.0); Mean Corpuscular Volume 84.9 fL (78.0-98.0); Platelet Count 60 thou/uL (130-400); Red Blood Cell (RBC) Count 3.65 mill/uL (4.70-6.10); White Blood Cell (WBC) Count 7.6 thou/uL (4.8-10.8)
[2019-08-20 08:11] LABS: #Eosinphils 0.3 thou/uL (0.0-0.7); #Lymphocytes 1.1 thou/uL (1.20-3.40); #Monocytes 0.7 thou/uL (0.11-0.59); #Neutrophils 5.5 thou/uL (1.40-6.50); %Basophils 0.1 % (0.0-1.0); %Lymphocytes 14.6 % (21.0-51.0); %Monocytes 8.6 % (0.0-10.0); %Neutrophils 72.8 % (42.0-75.0); Mean Platelet Volume 7.9 fL (7.4-10.4)
[2019-08-20 08:23] LABS: Band 5 % (5-11); Eosinophils 2 % (0-10); Lymphocytes 14 % (21-51); MDiff Complete? YES; Monocytes 3 % (0-10); Myelocyte 1 % (0-0); Neutrophil 75 % (42-75)
[2019-08-20] MEDS: Aspirin 81 mg Enteric Coated Tablet PO SCH (08:34)
[2019-08-20] MEDS: Saccharomyces boulardii 250 MG CAP PO SCH (08:34)
[2019-08-20] MEDS: Enoxaparin Sodium 40 MG/0.4 ML SYRINGE SC SCH (08:35)
--- NOTE | 2019-08-20 11:57 | PDOC.HOSPP ---
- Subjective Encounter Date: 08/20/19 Encounter Time: 09:00 Subjective: no sob or pain responds to verbal questions, not fully oriented - Objective Vital Signs & Weight: Vital Signs (12 hours) Temp Pulse Resp BP Pulse Ox 08/20/19 08:00 98 08/20/19 07:09 97.5 F L 61 91 H 129/65 91 L Weight Admit Weight 426 lb Weight 396 lb 13.313 oz Most Recent Monitor Data Heart Rate from ECG 60 NIBP 137/59 NIBP BP-Mean 85 Respiration from ECG 27 SpO2 99 I&O: 08/19/19 08/20/19 08/21/19 06:59 06:59 06:59 Intake Total 1080 500 Output Total 1200 500 Balance -120 0 Result Diagrams: 08/20/19 05:30 08/20/19 05:30 Hospitalist ROS - Medication Medications: Active Medications Generic Name Dose Route Start Last Admin Trade Name Freq PRN Reason Stop Dose Admin Aspirin 81 mg 08/16/19 09:00 08/20/19 08:34 Ecotrin PO 81 mg DAILY BHARATHI Administration Dextrose/Water 25 gm 08/17/19 00:14 08/17/19 00:25 Dextrose 50% SLOW IVP 25 gm PRN PRN Administration Hypoglycemia Enoxaparin Sodium 40 mg 08/20/19 09:00 08/20/19 08:35 Lovenox SC Not Given 0900 BHARATHI Furosemide 40 mg 08/19/19 14:00 08/20/19 05:37 Lasix SLOW IVP 40 mg 0600,1400 BHARATHI Administration Piperacillin Sod/Tazobactam 100 mls @ 200 mls/hr 08/14/19 15:00 08/20/19 05: 42 Sod 2.25 gm/ Sodium Chloride IVPB 100 mls 0700,1500,2300 BHARATHI Administration Pantoprazole Sodium 40 mg 08/20/19 09:00 08/20/19 08:34 Protonix PO 40 mg DAILY BHARATHI Administration Saccharomyces Boulardii 250 mg 08/16/19 09:00 08/20/19 08:34 Florastor PO 250 mg DAILY BHARATHI Administration Sodium Chloride 10 ml 08/14/19 14:00 08/17/19 23:43 Flush - Normal Saline IVF 10 ml PRN PRN Administration Saline Flush - Exam General Appearance: awake alert Eye: PERRL, anicteric sclera ENT: no oropharyngeal lesions, moist mucosa Neck: supple, no JVD Heart: RRR, no murmur Respiratory: no wheezes, no ronchi, rales Gastrointestinal: soft, non-tender, non-distended, normal bowel sounds Extremities: no cyanosis, 2+ LE edema Neurological: cranial nerve grossly intact, no focal deficits Hosp A/P (1) Anasarca Code(s): R60.1 - GENERALIZED EDEMA Status: Acute (2) Morbid obesity with BMI of 50.0-59.9, adult Code(s): E66.01 - MORBID (SEVERE) OBESITY DUE TO EXCESS CALORIES; Z68.43 - BODY MASS INDEX (BMI) 50.0-59.9, ADULT Status: Acute (3) Acute and chronic respiratory failure with hypoxia Code(s): J96.21 - ACUTE AND CHRONIC RESPIRATORY FAILURE WITH HYPOXIA Status: Acute (4) Hypoventilation syndrome Code(s): R06.89 - OTHER ABNORMALITIES OF BREATHING Status: Acute (5) Aspiration pneumonia Code(s): J69.0 - PNEUMONITIS DUE TO INHALATION OF FOOD AND VOMIT Status: Acute Qualifiers: Aspiration pneumonia type: due to regurgitated food Laterality: bilateral Lung location: lower lobe of lung Qualified Code(s): J69.0 - Pneumonitis due to inhalation of food and vomit (6) Acute exacerbation of CHF (congestive heart failure) Code(s): I50.9 - HEART FAILURE, UNSPECIFIED Status: Acute Qualifiers: Heart failure type: combined systolic and diastolic Qualified Code(s): I50.43 - Acute on chronic combined systolic (congestive) and diastolic ( congestive) heart failure (7) DELORES (acute kidney injury) Code(s): N17.9 - ACUTE KIDNEY FAILURE, UNSPECIFIED Status: Acute (8) CKD (chronic kidney disease) stage 4, GFR 15-29 ml/min Code(s): N18.4 - CHRONIC KIDNEY DISEASE, STAGE 4 (SEVERE) Status: Chronic (9) Chronic anemia Code(s): D64.9 - ANEMIA, UNSPECIFIED Status: Chronic (10) chronic thrombocytopenia Status: Chronic - Plan poor prognosis with multiple medical issues in addition to bmi of 54, poor functional status, generalized edema needing diuresis with delores/ckd and elevated hco3 continue zosyn, asp, protonix bipap/cpap when asleep will need placement PT/OT to mobiize as tolerated Palliative care consultation for code status and goals of care I did d/w patient about code status, he wants everything done, not sure is he really understood what I was saying despite asking multiple times in different ways (is not fully oriented) (08/19/2019) Is at risk for resp failure and renal failure He needs to mobilize a bit for his edema to come down
--- NOTE | 2019-08-20 13:56 | PRG ---
DATE OF SERVICE: 08/20/2019 SUBJECTIVE: Alan Zarate this morning appears to be more lethargic. OBJECTIVE: VITAL SIGNS: His temperature is 97, pulse 61, sats 98%, and blood pressure 129/65. CHEST: Decreased breath sounds. No wheezing. CARDIAC: Normal S1 and S2. No gallops. ABDOMEN: No masses. LABORATORY DATA: His creatinine is 2.46, BUN 81, and bicarb is 32. White count 7000. ASSESSMENT: Acute renal failure, [id number] respiratory failure, morbid obesity, and sleep apnea. PLAN: He needs to be on BiPAP at nighttime, daytime is needed. I have added several days of Diamox. He is encouraged to lose weight. Job ID: [id number]
[2019-08-21 05:38] LABS: Phosphorus 4.1 mg/dL (2.3-4.7)
[2019-08-21 05:39] LABS: #Eosinphils 0.4 thou/uL (0.0-0.7); #Lymphocytes 1.1 thou/uL (1.20-3.40); #Monocytes 0.5 thou/uL (0.11-0.59); #Neutrophils 5.6 thou/uL (1.40-6.50); %Basophils 0.2 % (0.0-1.0); %Eosinophils 4.9 % (0.0-10.0); %Lymphocytes 14.4 % (21.0-51.0); %Monocytes 6.4 % (0.0-10.0); %Neutrophils 74.1 % (42.0-75.0); Anion Gap 13 mmol/L (10-20); Anisocytosis SLIGHT = 6-15 cells (100X) (0-5/hpf); BUN (Urea Nitrogen) 79 mg/dL (8.4-25.7); Calc. Creatinine Clearance 82 mL/min (70-130); Calcium 9.2 mg/dL (7.8-10.44); Carbon Dioxide 32 mmol/L (23-31); Chloride 105 mmol/L (98-107); Elliptocytes SLIGHT = 2-5 cells (100X) (0-1/hpf); Estimated GFR-MDRD 35; Glucose 67 mg/dL (80-115); Hemoglobin 8.4 g/dL (14.0-18.0); Hypochromia SLIGHT = 6-15 cells (100X) (0-5/hpf); MDiff Complete? YES; Magnesium 2.2 mg/dL (1.6-2.6); Mean Corpuscular HGB CONC 28.9 g/dL (32.0-36.0); Mean Corpuscular Hemoglobin 24.9 pg (27.0-31.0); Mean Corpuscular Volume 86.4 fL (78.0-98.0); Mean Platelet Volume 11.5 fL (7.4-10.4); Platelet Count 68 thou/uL (130-400); Platelet Morphology Comment Appears Decreased; Potassium 4.3 mmol/L (3.5-5.1); RBC Distribution Width 18.6 % (11.5-14.5); Red Blood Cell (RBC) Count 3.38 mill/uL (4.70-6.10); Sodium 146 mmol/L (136-145); Target Cells SLIGHT = 2-5 cells (100X) (0-1/hpf); White Blood Cell (WBC) Count 7.6 thou/uL (4.8-10.8)
[2019-08-21] MEDS: Furosemide 40 MG/4 ML VIAL SLOW IVP SCH ×2 (05:44→14:31)
[2019-08-21] MEDS: Piperacillin/Tazobactam 2.25 GM in Sodium Chloride 0.9% 100 ML IVPB SCH ×3 (06:04→22:56)
[2019-08-21] MEDS ORDERED: Sterile Water 10 ML VIAL IVP SCH (07:45)
[2019-08-21] MEDS: Sterile Water 10 ML VIAL IVP SCH (08:23)
[2019-08-21] MEDS: acetaZOLAMIDE Sodium 500 mg Vial IVP SCH (08:26)
[2019-08-21] MEDS: Enoxaparin Sodium 40 MG/0.4 ML SYRINGE SC SCH (09:39)
[2019-08-21] MEDS: Aspirin 81 mg Enteric Coated Tablet PO SCH (10:15)
[2019-08-21] MEDS: Saccharomyces boulardii 250 MG CAP PO SCH (10:15)
--- NOTE | 2019-08-21 12:18 | PRG ---
DATE OF SERVICE: 08/21/2019 SUBJECTIVE: Patient was seen and examined at bedside and overnight events noted. Patient denies any shortness of breath or chest pain or palpitation. No history of nausea or vomiting or diarrhea or fever or chills or cramps. OBJECTIVE: GENERAL: This is a morbidly obese male, in no apparent distress. VITAL SIGNS: Temperature 97.5. Heart Rate 64. Respiratory rate 20. Blood pressure 122/76. HEENT: Atraumatic, normocephalic. Oral mucosa is moist. NECK: Supple. CARDIOVASCULAR: S1, S2 heard. Rate and rhythm regular. RESPIRATORY: Clear to auscultation. GASTROINTESTINAL: Abdomen is soft. MUSCULOSKELETAL: No tenderness. 2+ edema. DERMATOLOGIC: No skin rash. NEUROLOGIC: Alert and awake and oriented x3. No focal neurologic deficits. Moving all the extremities. PSYCHIATRIC: Mood and affect normal. LABORATORY DATA: Potassium is 4.3, BUN is 79, creatinine is 2.2. ASSESSMENT AND PLAN: 1. Acute kidney injury on chronic kidney disease stage 3, stable. 2. Hypernatremia. 3. Alkalosis, which is chronic. 4. Anemia of chronic disease. 5. Respiratory acidosis. Continue on diuresis. Monitor renal function. Job ID: [id number] MTDD
--- NOTE | 2019-08-21 13:57 | PDOC.HOSPP ---
- Subjective Encounter Date: 08/21/19 Encounter Time: 10:00 Subjective: awake, responds to verbal stimuli no sob, no complaints moves all extremities, has not ambulated yet - Objective Vital Signs & Weight: Vital Signs (12 hours) Temp Pulse Resp BP Pulse Ox 08/21/19 10:18 96 08/21/19 07:35 97.5 F L 64 20 122/76 97 08/21/19 04:01 97.5 F L 59 L 18 123/76 96 Weight Admit Weight 426 lb Weight 406 lb 12.046 oz Most Recent Monitor Data Heart Rate from ECG 60 NIBP 137/59 NIBP BP-Mean 85 Respiration from ECG 27 SpO2 99 I&O: 08/20/19 08/21/19 08/22/19 06:59 06:59 06:59 Intake Total 500 1150 Output Total 500 2450 Balance 0 -1300 Result Diagrams: 08/21/19 05:01 08/21/19 05:01 Hospitalist ROS - Medication Medications: Active Medications Generic Name Dose Route Start Last Admin Trade Name Freq PRN Reason Stop Dose Admin Acetazolamide Sodium 500 mg 08/21/19 09:00 08/21/19 08:26 Diamox IVP 08/24/19 09:01 500 mg DAILY BHARATHI Administration Aspirin 81 mg 08/16/19 09:00 08/21/19 10:15 Ecotrin PO 81 mg DAILY BHARATHI Administration Dextrose/Water 25 gm 08/17/19 00:14 08/17/19 00:25 Dextrose 50% SLOW IVP 25 gm PRN PRN Administration Hypoglycemia Enoxaparin Sodium 40 mg 08/20/19 09:00 08/21/19 09:39 Lovenox SC Not Given 0900 BHARATHI Furosemide 40 mg 08/19/19 14:00 08/21/19 05:44 Lasix SLOW IVP 40 mg 0600,1400 BHARATHI Administration Piperacillin Sod/Tazobactam 100 mls @ 200 mls/hr 08/14/19 15:00 08/21/19 06: 04 Sod 2.25 gm/ Sodium Chloride IVPB 100 mls 0700,1500,2300 BHARATHI Administration Pantoprazole Sodium 40 mg 08/20/19 09:00 08/21/19 10:15 Protonix PO 40 mg DAILY BHARATHI Administration Saccharomyces Boulardii 250 mg 08/16/19 09:00 08/21/19 10:15 Florastor PO 250 mg DAILY BHARATHI Administration Sodium Chloride 10 ml 08/14/19 14:00 08/17/19 23:43 Flush - Normal Saline IVF 10 ml PRN PRN Administration Saline Flush Sterile Water 10 ml 08/21/19 09:00 08/21/19 08:23 Water For Injection IVP 08/24/19 11:00 Not Given DAILY BHARATHI - Exam General Appearance: awake alert Eye: PERRL, anicteric sclera ENT: no oropharyngeal lesions, moist mucosa Neck: supple, no JVD Heart: RRR, no murmur Respiratory: no wheezes, rales Gastrointestinal: soft, non-tender, non-distended, normal bowel sounds Extremities: no cyanosis, 2+ LE edema Neurological: cranial nerve grossly intact, no focal deficits Hosp A/P (1) Anasarca Code(s): R60.1 - GENERALIZED EDEMA Status: Acute (2) Morbid obesity with BMI of 50.0-59.9, adult Code(s): E66.01 - MORBID (SEVERE) OBESITY DUE TO EXCESS CALORIES; Z68.43 - BODY MASS INDEX (BMI) 50.0-59.9, ADULT Status: Acute (3) Acute and chronic respiratory failure with hypoxia Code(s): J96.21 - ACUTE AND CHRONIC RESPIRATORY FAILURE WITH HYPOXIA Status: Acute (4) Hypoventilation syndrome Code(s): R06.89 - OTHER ABNORMALITIES OF BREATHING Status: Acute (5) Aspiration pneumonia Code(s): J69.0 - PNEUMONITIS DUE TO INHALATION OF FOOD AND VOMIT Status: Acute Qualifiers: Aspiration pneumonia type: due to regurgitated food Laterality: bilateral Lung location: lower lobe of lung Qualified Code(s): J69.0 - Pneumonitis due to inhalation of food and vomit (6) Acute exacerbation of CHF (congestive heart failure) Code(s): I50.9 - HEART FAILURE, UNSPECIFIED Status: Acute Qualifiers: Heart failure type: combined systolic and diastolic Qualified Code(s): I50.43 - Acute on chronic combined systolic (congestive) and diastolic ( congestive) heart failure (7) DELORES (acute kidney injury) Code(s): N17.9 - ACUTE KIDNEY FAILURE, UNSPECIFIED Status: Acute (8) CKD (chronic kidney disease) stage 4, GFR 15-29 ml/min Code(s): N18.4 - CHRONIC KIDNEY DISEASE, STAGE 4 (SEVERE) Status: Chronic (9) Chronic anemia Code(s): D64.9 - ANEMIA, UNSPECIFIED Status: Chronic (10) chronic thrombocytopenia Status: Chronic - Plan poor prognosis with multiple medical issues in addition to bmi of 54, poor functional status, generalized edema needing diuresis with delores/ckd and elevated hco3 continue zosyn, asp, protonix bipap/cpap when asleep will need placement PT/OT to mobiize as tolerated, has not ambulated yet. D/w with Palliative care for code status and goals of care I did d/w patient about code status, he wants everything done, not sure is he really understood what I was saying despite asking multiple times in different ways (is not fully oriented) (08/19/2019) Is at risk for resp failure and renal failure He needs to mobilize a bit for his edema to come down
--- NOTE | 2019-08-21 21:14 | PRG ---
DATE OF SERVICE: 08/21/2019 SUBJECTIVE: Mr. Zarate is afebrile. OBJECTIVE: VITAL SIGNS: Heart rate 60, respiratory rate 20, oximetry is 92% on 3 L, blood pressure 119/71. LUNGS: Clear. HEART: Regular rhythm. ABDOMEN: Soft. LABORATORY DATA: White count 7.6, hemoglobin 8.4, platelets 68,000. Sodium 146, potassium 4.3, chloride 105, bicarb 32, BUN 79, creatinine 2.26. IMPRESSION: 1. Jpceu-ui-rwkqmhd kidney disease. 2. Morbid obesity. 3. Sleep apnea. 4. Obesity. PLAN: We will continue to follow the other physicians. Job ID: [id number]
[2019-08-22] MEDS: Furosemide 40 MG/4 ML VIAL SLOW IVP SCH ×2 (05:32→15:00)
[2019-08-22] MEDS: Piperacillin/Tazobactam 2.25 GM in Sodium Chloride 0.9% 100 ML IVPB SCH ×3 (06:13→23:04)
[2019-08-22 07:22] LABS: Phosphorus 3.7 mg/dL (2.3-4.7)
[2019-08-22 07:24] LABS: Hemoglobin 8.2 g/dL (14.0-18.0); Mean Corpuscular HGB CONC 27.2 g/dL (32.0-36.0); Mean Corpuscular Hemoglobin 23.8 pg (27.0-31.0); Mean Corpuscular Volume 87.5 fL (78.0-98.0); Mean Platelet Volume 11.5 fL (7.4-10.4); Platelet Count 80 thou/uL (130-400); RBC Distribution Width 19.1 % (11.5-14.5); Red Blood Cell (RBC) Count 3.44 mill/uL (4.70-6.10); White Blood Cell (WBC) Count 7.2 thou/uL (4.8-10.8)
[2019-08-22 07:25] LABS: #Eosinphils 0.4 thou/uL (0.0-0.7); #Lymphocytes 1.1 thou/uL (1.20-3.40); #Monocytes 0.5 thou/uL (0.11-0.59); #Neutrophils 5.2 thou/uL (1.40-6.50); %Basophils 0.4 % (0.0-1.0); %Lymphocytes 15.4 % (21.0-51.0); %Monocytes 6.7 % (0.0-10.0); %Neutrophils 72.6 % (42.0-75.0); BUN (Urea Nitrogen) 79 mg/dL (8.4-25.7); Calc. Creatinine Clearance 81 mL/min (70-130); Calcium 9.1 mg/dL (7.8-10.44); Estimated GFR-MDRD 34; Glucose 78 mg/dL (80-115); Magnesium 2.3 mg/dL (1.6-2.6)
[2019-08-22 07:35] LABS: Anion Gap 16 mmol/L (10-20); Carbon Dioxide 35 mmol/L (23-31); Chloride 104 mmol/L (98-107); Potassium 4.4 mmol/L (3.5-5.1); Sodium 151 mmol/L (136-145)
[2019-08-22 07:49] LABS: Hypochromia SLIGHT = 6-15 cells (100X) (0-5/hpf); MDiff Complete? YES; Ovalocytes SLIGHT = 2-5 cells (100X) (0-1/hpf); Platelet Morphology Comment Appears Decreased; Polychromasia MODERATE = 3-4 cells (100X) (0-2/hpf)
[2019-08-22] MEDS: Aspirin 81 mg Enteric Coated Tablet PO SCH (09:12)
[2019-08-22] MEDS: Saccharomyces boulardii 250 MG CAP PO SCH (09:12)
[2019-08-22] MEDS: Enoxaparin Sodium 40 MG/0.4 ML SYRINGE SC SCH (09:13)
[2019-08-22] MEDS: Sterile Water 10 ML VIAL IVP SCH (09:13)
[2019-08-22] MEDS: acetaZOLAMIDE Sodium 500 mg Vial IVP SCH (09:13)
--- NOTE | 2019-08-22 12:47 | PDOC.HOSPP ---
- Subjective Encounter Date: 08/22/19 Encounter Time: 10:00 Subjective: no sob, is sitting on bed responds well to verbal questions - Objective Vital Signs & Weight: Vital Signs (12 hours) Temp Pulse Resp BP Pulse Ox Pulse Ox Pulse Ox 08/22/19 09:15 88 L 85 L 08/22/19 08:00 92 L 08/22/19 07:33 97.9 F 60 20 137/84 98 08/22/19 06:42 93 L 08/22/19 02:42 59 L 14 93 L Weight Admit Weight 426 lb Weight 401 lb 14.443 oz Most Recent Monitor Data Heart Rate from ECG 60 NIBP 137/59 NIBP BP-Mean 85 Respiration from ECG 27 SpO2 99 I&O: 08/21/19 08/22/19 08/23/19 06:59 06:59 06:59 Intake Total 1150 820 Output Total 2450 1925 Balance -1300 -1105 Result Diagrams: 08/22/19 06:53 08/22/19 06:53 Hospitalist ROS - Medication Medications: Active Medications Generic Name Dose Route Start Last Admin Trade Name Freq PRN Reason Stop Dose Admin Acetazolamide Sodium 500 mg 08/21/19 09:00 08/22/19 09:13 Diamox IVP 08/24/19 09:01 500 mg DAILY BHARATHI Administration Aspirin 81 mg 08/16/19 09:00 08/22/19 09:12 Ecotrin PO 81 mg DAILY BHARATHI Administration Dextrose/Water 25 gm 08/17/19 00:14 08/17/19 00:25 Dextrose 50% SLOW IVP 25 gm PRN PRN Administration Hypoglycemia Enoxaparin Sodium 40 mg 08/20/19 09:00 08/22/19 09:13 Lovenox SC 40 mg 0900 BHARATHI Administration Furosemide 40 mg 08/19/19 14:00 08/22/19 05:32 Lasix SLOW IVP 40 mg 0600,1400 BHARATHI Administration Piperacillin Sod/Tazobactam 100 mls @ 200 mls/hr 08/14/19 15:00 08/22/19 06: 13 Sod 2.25 gm/ Sodium Chloride IVPB 100 mls 0700,1500,2300 BHARATHI Administration Pantoprazole Sodium 40 mg 08/20/19 09:00 08/22/19 09:12 Protonix PO 40 mg DAILY BHARATHI Administration Saccharomyces Boulardii 250 mg 08/16/19 09:00 08/22/19 09:12 Florastor PO 250 mg DAILY BHARATHI Administration Sodium Chloride 10 ml 08/14/19 14:00 08/17/19 23:43 Flush - Normal Saline IVF 10 ml PRN PRN Administration Saline Flush Sterile Water 10 ml 08/21/19 09:00 08/22/19 09:13 Water For Injection IVP 08/24/19 11:00 10 ml DAILY BHARATHI Administration - Exam General Appearance: awake alert Eye: PERRL, anicteric sclera ENT: no oropharyngeal lesions, moist mucosa Neck: supple, no JVD Heart: RRR, no murmur Respiratory: no wheezes, no rales Gastrointestinal: soft, non-tender, non-distended, normal bowel sounds Extremities: no cyanosis, 1+ LE edema Neurological: cranial nerve grossly intact, no focal deficits Psychiatric: A&O x 3 Hosp A/P (1) Anasarca Code(s): R60.1 - GENERALIZED EDEMA Status: Acute (2) Morbid obesity with BMI of 50.0-59.9, adult Code(s): E66.01 - MORBID (SEVERE) OBESITY DUE TO EXCESS CALORIES; Z68.43 - BODY MASS INDEX (BMI) 50.0-59.9, ADULT Status: Acute (3) Acute and chronic respiratory failure with hypoxia Code(s): J96.21 - ACUTE AND CHRONIC RESPIRATORY FAILURE WITH HYPOXIA Status: Acute (4) Hypoventilation syndrome Code(s): R06.89 - OTHER ABNORMALITIES OF BREATHING Status: Acute (5) Aspiration pneumonia Code(s): J69.0 - PNEUMONITIS DUE TO INHALATION OF FOOD AND VOMIT Status: Acute Qualifiers: Aspiration pneumonia type: due to regurgitated food Laterality: bilateral Lung location: lower lobe of lung Qualified Code(s): J69.0 - Pneumonitis due to inhalation of food and vomit (6) Acute exacerbation of CHF (congestive heart failure) Code(s): I50.9 - HEART FAILURE, UNSPECIFIED Status: Acute Qualifiers: Heart failure type: combined systolic and diastolic Qualified Code(s): I50.43 - Acute on chronic combined systolic (congestive) and diastolic ( congestive) heart failure (7) DELORES (acute kidney injury) Code(s): N17.9 - ACUTE KIDNEY FAILURE, UNSPECIFIED Status: Acute (8) CKD (chronic kidney disease) stage 4, GFR 15-29 ml/min Code(s): N18.4 - CHRONIC KIDNEY DISEASE, STAGE 4 (SEVERE) Status: Chronic (9) Chronic anemia Code(s): D64.9 - ANEMIA, UNSPECIFIED Status: Chronic (10) chronic thrombocytopenia Status: Chronic - Plan poor prognosis with multiple medical issues in addition to bmi of 54, poor functional status, generalized edema needing diuresis with delores/ckd, elevated hco3 and now hypernatremia. continue zosyn, asp, protonix bipap/cpap when asleep likely placement to [facility] PT/OT to mobiize as tolerated, has not ambulated yet. D/w with Palliative care for code status and goals of care I did d/w patient about code status, he wants everything done, not sure is he really understood what I was saying despite asking multiple times in different ways (is not fully oriented) (08/19/2019) Is at risk for resp failure and renal failure He needs to mobilize a bit for his edema to come down
--- NOTE | 2019-08-22 13:10 | PRG ---
DATE OF SERVICE: 08/22/2019 SUBJECTIVE: Alan Zarate has no complaints. He says he has CPAP at home. I have asked the nursing staff to see if they can get family to bring up his home device. OBJECTIVE: VITAL SIGNS: He is afebrile. Heart rate is 60, respiratory rate 20, oximetry is 92% on 3.5 L. LUNGS: Distant clear. HEART: Regular rhythm. ABDOMEN: Soft. LABORATORY DATA: White count 7.2, hemoglobin 8.2, platelets 80,000. Electrolytes are unremarkable. Creatinine is 2.31. IMPRESSION: 1. Sleep apnea. 2. Life-threatening obesity. He is 5 feet 11 inches, 401 pounds. 3. Extreme deconditioning. Physical therapy was coming to walk with him. 4. Chronic kidney disease. 5. He very likely would benefit from a [place] swing bed. Job ID: [id number]
--- NOTE | 2019-08-22 16:26 | PDOC.FMACP ---
Advance Care Planning - Note Participants: patient, family, palliative care Summary: Advanced Care Planning was discussed. The diagnosis, prognosis and goals of care were discussed. Appropriate forms and documentation to accomplish the goals of care were discussed. All questions were answered. The Palliative Care Team will be engaged to assist with completion of any outstanding forms that are needed. Per Reyes Introduced Palliative Care to patient, he was allowed the oppertunity to decline. Completed MPOA, placed on chart as well as copies made and provided to patient and daughter. Provided information in relation to Directive to Physicians. Time Spent (mins): 30
--- NOTE | 2019-08-22 16:52 | PRG ---
DATE OF SERVICE: 08/22/2019 SUBJECTIVE: Patient was seen and examined at bedside and overnight events noted. Patient denies any shortness of breath or chest pain or palpitation. No history of nausea or vomiting or diarrhea or fever or chills or cramps. OBJECTIVE: General: This is a morbidly obese male, in no apparent distress. Vital Signs: Temperature 97.9. Heart Rate 60. Respiratory rate 20. Blood pressure 137/84. HEENT: Atraumatic, normocephalic. Oral mucosa is moist. Neck: Supple. Cardiovascular: S1, S2 heard. Rate and rhythm regular. Respiratory: Clear to auscultation. Gastrointestinal: Abdomen is soft. Musculoskeletal: No tenderness. Dermatologic: No skin rash. Neurologic: Alert and awake and oriented x3. No focal neurologic deficits. Moving all the extremities. Psychiatric: Mood and affect normal. LABORATORY DATA: Potassium 4.4, sodium is 151, bicarb 35, BUN is 79, creatinine is 2.3. ASSESSMENT AND PLAN: 1. Acute kidney injury on chronic kidney disease, stage 3, stable. 2. Hypernatremia. 3. Metabolic alkalosis. 4. Anemia of chronic disease. 5. Respiratory acidosis. 6. Chronic edema. 7. Consider reducing diuretic dose and free water if tolerated. Monitor labs closely. Job ID: [id number]
[2019-08-23] MEDS: Furosemide 40 MG/4 ML VIAL SLOW IVP SCH ×2 (05:54→14:53)
[2019-08-23] MEDS: Piperacillin/Tazobactam 2.25 GM in Sodium Chloride 0.9% 100 ML IVPB SCH ×3 (05:56→23:04)
[2019-08-23 06:54] LABS: #Basophils 0.1 thou/uL (0.0-0.2); #Eosinphils 0.4 thou/uL (0.0-0.7); #Lymphocytes 1.2 thou/uL (1.20-3.40); #Monocytes 0.4 thou/uL (0.11-0.59); #Neutrophils 5.2 thou/uL (1.40-6.50); %Basophils 0.9 % (0.0-1.0); %Eosinophils 5.7 % (0.0-10.0); %Lymphocytes 16.4 % (21.0-51.0); Anisocytosis SLIGHT = 6-15 cells (100X) (0-5/hpf); Hemoglobin 8.2 g/dL (14.0-18.0); MDiff Complete? YES; Mean Corpuscular HGB CONC 27.7 g/dL (32.0-36.0); Mean Corpuscular Hemoglobin 24.1 pg (27.0-31.0); Mean Corpuscular Volume 86.8 fL (78.0-98.0); Mean Platelet Volume 10.3 fL (7.4-10.4); Platelet Count 92 thou/uL (130-400); Platelet Morphology Comment Appears Decreased; RBC Distribution Width 19.7 % (11.5-14.5); Red Blood Cell (RBC) Count 3.42 mill/uL (4.70-6.10); White Blood Cell (WBC) Count 7.4 thou/uL (4.8-10.8)
[2019-08-23 06:59] LABS: Phosphorus 3.2 mg/dL (2.3-4.7)
[2019-08-23 07:01] LABS: BUN (Urea Nitrogen) 86 mg/dL (8.4-25.7); Calc. Creatinine Clearance 88 mL/min (70-130); Estimated GFR-MDRD 37; Glucose 78 mg/dL (80-115); Magnesium 2.2 mg/dL (1.6-2.6)
[2019-08-23 07:11] LABS: Anion Gap 15 mmol/L (10-20); Carbon Dioxide 35 mmol/L (23-31); Chloride 103 mmol/L (98-107); Potassium 4.5 mmol/L (3.5-5.1); Sodium 148 mmol/L (136-145)
[2019-08-23] MEDS: Aspirin 81 mg Enteric Coated Tablet PO SCH (08:34)
[2019-08-23] MEDS: Enoxaparin Sodium 40 MG/0.4 ML SYRINGE SC SCH (08:34)
[2019-08-23] MEDS: Saccharomyces boulardii 250 MG CAP PO SCH (08:35)
[2019-08-23] MEDS: Sterile Water 10 ML VIAL IVP SCH (08:36)
[2019-08-23] MEDS: acetaZOLAMIDE Sodium 500 mg Vial IVP SCH (08:36)
--- NOTE | 2019-08-23 11:09 | PRG ---
DATE OF SERVICE: 08/23/2019 SUBJECTIVE: Patient was seen and examined at bedside and overnight events noted. Patient denies any shortness of breath or chest pain or palpitation. No history of nausea or vomiting or diarrhea or fever or chills or cramps. OBJECTIVE: General: This is morbidly obese male, in no apparent distress. Vital Signs: Temperature 97.6. Heart Rate 60. Respiratory rate 18. Blood pressure 116/73. HEENT: Atraumatic, normocephalic. Oral mucosa is moist. Neck: Supple. Cardiovascular: S1, S2 heard. Rate and rhythm regular. Respiratory: Clear to auscultation. Gastrointestinal: Abdomen is soft. Musculoskeletal: 1+ edema. Dermatologic: No skin rash. Neurologic: Alert and awake and oriented x3. No focal neurologic deficits. Moving all the extremities. Psychiatric: Mood and affect normal. LABORATORY DATA: Potassium 4.5, BUN is 86, and creatinine is 2.1. ASSESSMENT AND PLAN: 1. Acute kidney injury on chronic kidney disease, stable. 2. Hypernatremia, slightly better. 3. Metabolic alkalosis, most likely from respiratory acidosis. 4. Anemia of chronic disease. 5. Chronic edema. Consider reducing diuretics and monitor labs. We will follow. Avoid nephrotoxins. Job ID: [id number]
--- NOTE | 2019-08-23 13:00 | PDOC.HOSPP ---
- Subjective Encounter Date: 08/23/19 Encounter Time: 10:30 Subjective: no sob or abd pain feels better - Objective Vital Signs & Weight: Vital Signs (12 hours) Temp Pulse Resp BP Pulse Ox 08/23/19 11:17 97.5 F L 60 18 122/75 97 08/23/19 08:28 96 08/23/19 07:25 96 08/23/19 07:16 97.6 F 60 18 116/73 96 08/23/19 03:45 62 24 H 94 L Weight Admit Weight 426 lb Weight 411 lb 6.121 oz Most Recent Monitor Data Heart Rate from ECG 60 NIBP 137/59 NIBP BP-Mean 85 Respiration from ECG 27 SpO2 99 I&O: 08/22/19 08/23/19 08/24/19 06:59 06:59 06:59 Intake Total 820 1600 Output Total 1925 1600 Balance -1105 0 Result Diagrams: 08/23/19 06:26 08/23/19 06:26 Additional Labs: Accuchecks 08/22/19 20:19 POC Glucose 145 H Hospitalist ROS - Medication Medications: Active Medications Generic Name Dose Route Start Last Admin Trade Name Freq PRN Reason Stop Dose Admin Acetazolamide Sodium 500 mg 08/21/19 09:00 08/23/19 08:36 Diamox IVP 08/24/19 09:01 500 mg DAILY BHARATHI Administration Aspirin 81 mg 08/16/19 09:00 08/23/19 08:34 Ecotrin PO 81 mg DAILY BHARATHI Administration Dextrose/Water 25 gm 08/17/19 00:14 08/17/19 00:25 Dextrose 50% SLOW IVP 25 gm PRN PRN Administration Hypoglycemia Enoxaparin Sodium 40 mg 08/20/19 09:00 08/23/19 08:34 Lovenox SC 40 mg 0900 BHARATHI Administration Furosemide 40 mg 08/19/19 14:00 08/23/19 05:54 Lasix SLOW IVP 40 mg 0600,1400 BHARATHI Administration Piperacillin Sod/Tazobactam 100 mls @ 200 mls/hr 08/14/19 15:00 08/23/19 05: 56 Sod 2.25 gm/ Sodium Chloride IVPB 100 mls 0700,1500,2300 BHARATHI Administration Pantoprazole Sodium 40 mg 08/20/19 09:00 06/10/20 08:35 Protonix PO 40 mg DAILY BHARATHI Administration Saccharomyces Amandai 250 mg 08/16/19 09:00 08/23/19 08:35 Florastor PO 250 mg DAILY BHARATHI Administration Sodium Chloride 10 ml 08/14/19 14:00 08/23/19 08:41 Flush - Normal Saline IVF 10 ml PRN PRN Administration Saline Flush Sterile Water 10 ml 08/21/19 09:00 08/23/19 08:36 Water For Injection IVP 08/24/19 11:00 10 ml DAILY BHARATHI Administration - Exam General Appearance: awake alert Eye: PERRL, anicteric sclera ENT: no oropharyngeal lesions, moist mucosa Neck: supple, no JVD Heart: RRR, no murmur Respiratory: no wheezes, no ronchi, rales Gastrointestinal: soft, non-tender, normal bowel sounds, no guarding, no rigidity Extremities: no cyanosis, 2+ LE edema Neurological: cranial nerve grossly intact, no focal deficits Hosp A/P (1) Anasarca Code(s): R60.1 - GENERALIZED EDEMA Status: Acute (2) Morbid obesity with BMI of 50.0-59.9, adult Code(s): E66.01 - MORBID (SEVERE) OBESITY DUE TO EXCESS CALORIES; Z68.43 - BODY MASS INDEX (BMI) 50.0-59.9, ADULT Status: Acute (3) Acute and chronic respiratory failure with hypoxia Code(s): J96.21 - ACUTE AND CHRONIC RESPIRATORY FAILURE WITH HYPOXIA Status: Acute (4) Hypoventilation syndrome Code(s): R06.89 - OTHER ABNORMALITIES OF BREATHING Status: Acute (5) Aspiration pneumonia Code(s): J69.0 - PNEUMONITIS DUE TO INHALATION OF FOOD AND VOMIT Status: Acute Qualifiers: Aspiration pneumonia type: due to regurgitated food Laterality: bilateral Lung location: lower lobe of lung Qualified Code(s): J69.0 - Pneumonitis due to inhalation of food and vomit (6) Acute exacerbation of CHF (congestive heart failure) Code(s): I50.9 - HEART FAILURE, UNSPECIFIED Status: Acute Qualifiers: Heart failure type: combined systolic and diastolic Qualified Code(s): I50.43 - Acute on chronic combined systolic (congestive) and diastolic ( congestive) heart failure (7) DELORES (acute kidney injury) Code(s): N17.9 - ACUTE KIDNEY FAILURE, UNSPECIFIED Status: Acute (8) CKD (chronic kidney disease) stage 4, GFR 15-29 ml/min Code(s): N18.4 - CHRONIC KIDNEY DISEASE, STAGE 4 (SEVERE) Status: Chronic (9) Chronic anemia Code(s): D64.9 - ANEMIA, UNSPECIFIED Status: Chronic (10) chronic thrombocytopenia Status: Chronic - Plan poor prognosis with multiple medical issues in addition to bmi of 54, poor functional status, generalized edema needing diuresis with delores/ckd, elevated hco3 and now hypernatremia. zosyn till tomorrow, asp, protonix bipap/cpap when asleep [facility] placement [facility] PT/OT to mobiize as tolerated, has not ambulated yet. Palliative care for code status and goals of care I did d/w patient about code status, he wants everything done, not sure is he really understood what I was saying despite asking multiple times in different ways (is not fully oriented) (08/19/2019) Is at risk for resp failure and renal failure He needs to mobilize a bit for his edema to come down, counselled regarding this and he will work with therapy today
[2019-08-24] MEDS: Furosemide 40 MG/4 ML VIAL SLOW IVP SCH ×2 (05:53→14:51)
[2019-08-24] MEDS: Piperacillin/Tazobactam 2.25 GM in Sodium Chloride 0.9% 100 ML IVPB SCH ×3 (06:03→23:00)
[2019-08-24 07:03] LABS: BUN (Urea Nitrogen) 81 mg/dL (8.4-25.7); Calc. Creatinine Clearance 85 mL/min (70-130); Calcium 9.1 mg/dL (7.8-10.44); Estimated GFR-MDRD 36; Glucose 93 mg/dL (80-115); Magnesium 2.2 mg/dL (1.6-2.6)
[2019-08-24 07:10] LABS: Hemoglobin 8.5 g/dL (14.0-18.0); Mean Corpuscular HGB CONC 27.2 g/dL (32.0-36.0); Mean Corpuscular Hemoglobin 23.7 pg (27.0-31.0); Mean Corpuscular Volume 86.9 fL (78.0-98.0); Mean Platelet Volume 10.8 fL (7.4-10.4); Platelet Count 112 thou/uL (130-400); RBC Distribution Width 19.2 % (11.5-14.5); Red Blood Cell (RBC) Count 3.58 mill/uL (4.70-6.10); White Blood Cell (WBC) Count 7.3 thou/uL (4.8-10.8)
[2019-08-24 07:12] LABS: Anion Gap 14 mmol/L (10-20); Carbon Dioxide 35 mmol/L (23-31); Chloride 105 mmol/L (98-107); Potassium 4.2 mmol/L (3.5-5.1); Sodium 150 mmol/L (136-145)
[2019-08-24 07:56] LABS: #Eosinphils 0.3 thou/uL (0.0-0.7); #Lymphocytes 1.1 thou/uL (1.20-3.40); #Monocytes 0.5 thou/uL (0.11-0.59); #Neutrophils 5.4 thou/uL (1.40-6.50); %Basophils 0.5 % (0.0-1.0); %Eosinophils 4.7 % (0.0-10.0); %Lymphocytes 14.5 % (21.0-51.0); %Monocytes 6.4 % (0.0-10.0); Eosinophils 4 % (0-10); Hypochromia SLIGHT = 6-15 cells (100X) (0-5/hpf); Lymphocytes 9 % (21-51); MDiff Complete? YES; Monocytes 4 % (0-10); Neutrophil 83 % (42-75); Ovalocytes SLIGHT = 2-5 cells (100X) (0-1/hpf); Platelet Morphology Comment Appears Decreased; Polychromasia SLIGHT = 2-3 cells (100X) (0-2/hpf); Target Cells SLIGHT = 2-5 cells (100X) (0-1/hpf)
[2019-08-24] MEDS: acetaZOLAMIDE Sodium 500 mg Vial IVP SCH (08:40)
[2019-08-24] MEDS: Aspirin 81 mg Enteric Coated Tablet PO SCH (08:41)
[2019-08-24] MEDS: Enoxaparin Sodium 40 MG/0.4 ML SYRINGE SC SCH (08:41)
[2019-08-24] MEDS: Saccharomyces boulardii 250 MG CAP PO SCH (08:41)
[2019-08-24] MEDS: Sterile Water 10 ML VIAL IVP SCH (08:42)
--- NOTE | 2019-08-24 09:17 | PRG ---
DATE OF SERVICE: 08/23/2019 SUBJECTIVE: He has no complaints. OBJECTIVE: VITAL SIGNS: He is afebrile, heart rate is 60, respiratory rate is 18, oximetry is 97%, and blood pressure is 122/75. LUNGS: Clear. HEART: Regular rhythm. ABDOMEN: Soft. IMPRESSION AND PLAN: 1. Life-threatening obesity. 2. Obesity hypoventilation syndrome. 3. Diastolic heart failure. 4. Chronic kidney disease. He had a sleep study with me in 2012, but never kept any followup after that. He said he has CPAP at home, but I doubt he does. He will need an another sleep study in the future. His weight and his deconditioning will severely limit his chances of long-term survival. He probably needs to be transferred to some sort of intermediate/swing bed facility. Job ID: [id number]
--- NOTE | 2019-08-24 12:19 | PDOC.HOSPP ---
- Subjective Encounter Date: 08/24/19 Encounter Time: 09:45 Subjective: is a bit confused this am, is sleeping off. Awakens to questions but trails off. ate his breakfast this am - Objective Vital Signs & Weight: Vital Signs (12 hours) Temp Pulse Resp BP Pulse Ox 08/24/19 10:00 94 L 08/24/19 07:47 96.5 F L 59 L 18 127/73 94 L Weight Admit Weight 426 lb Weight 410 lb 11.539 oz Most Recent Monitor Data Heart Rate from ECG 60 NIBP 137/59 NIBP BP-Mean 85 Respiration from ECG 27 SpO2 99 I&O: 08/23/19 08/24/19 08/25/19 06:59 06:59 06:59 Intake Total 1600 1000 Output Total 1600 1450 Balance 0 -450 Result Diagrams: 08/24/19 06:08 08/24/19 06:08 Hospitalist ROS - Medication Medications: Active Medications Generic Name Dose Route Start Last Admin Trade Name Freq PRN Reason Stop Dose Admin Aspirin 81 mg 08/16/19 09:00 08/24/19 08:41 Ecotrin PO 81 mg DAILY BHARATHI Administration Dextrose/Water 25 gm 08/17/19 00:14 08/17/19 00:25 Dextrose 50% SLOW IVP 25 gm PRN PRN Administration Hypoglycemia Enoxaparin Sodium 40 mg 08/20/19 09:00 08/24/19 08:41 Lovenox SC 40 mg 0900 BHARATHI Administration Furosemide 40 mg 08/19/19 14:00 08/24/19 05:53 Lasix SLOW IVP 40 mg 0600,1400 BHARATHI Administration Piperacillin Sod/Tazobactam 100 mls @ 200 mls/hr 08/14/19 15:00 08/24/19 06: 03 Sod 2.25 gm/ Sodium Chloride IVPB 100 mls 0700,1500,2300 BHARATHI Administration Pantoprazole Sodium 40 mg 08/20/19 09:00 08/24/19 08:41 Protonix PO 40 mg DAILY BHARATHI Administration Saccharomyces Boulardii 250 mg 08/16/19 09:00 08/24/19 08:41 Florastor PO 250 mg DAILY BHARATHI Administration Sodium Chloride 10 ml 08/14/19 14:00 08/23/19 08:41 Flush - Normal Saline IVF 10 ml PRN PRN Administration Saline Flush - Exam General Appearance: ill appearing Eye: PERRL, anicteric sclera ENT: no oropharyngeal lesions, moist mucosa Neck: supple, no JVD Heart: RRR, no murmur Respiratory: no wheezes, no rales, rhonchi Gastrointestinal: soft, non-tender, non-distended, normal bowel sounds Extremities: no cyanosis, 1+ LE edema Neurological: cranial nerve grossly intact, no focal deficits Hosp A/P (1) Anasarca Code(s): R60.1 - GENERALIZED EDEMA Status: Acute (2) Morbid obesity with BMI of 50.0-59.9, adult Code(s): E66.01 - MORBID (SEVERE) OBESITY DUE TO EXCESS CALORIES; Z68.43 - BODY MASS INDEX (BMI) 50.0-59.9, ADULT Status: Acute (3) Acute and chronic respiratory failure with hypoxia Code(s): J96.21 - ACUTE AND CHRONIC RESPIRATORY FAILURE WITH HYPOXIA Status: Acute (4) Hypoventilation syndrome Code(s): R06.89 - OTHER ABNORMALITIES OF BREATHING Status: Acute (5) Aspiration pneumonia Code(s): J69.0 - PNEUMONITIS DUE TO INHALATION OF FOOD AND VOMIT Status: Acute Qualifiers: Aspiration pneumonia type: due to regurgitated food Laterality: bilateral Lung location: lower lobe of lung Qualified Code(s): J69.0 - Pneumonitis due to inhalation of food and vomit (6) Acute exacerbation of CHF (congestive heart failure) Code(s): I50.9 - HEART FAILURE, UNSPECIFIED Status: Acute Qualifiers: Heart failure type: combined systolic and diastolic Qualified Code(s): I50.43 - Acute on chronic combined systolic (congestive) and diastolic ( congestive) heart failure (7) DELORES (acute kidney injury) Code(s): N17.9 - ACUTE KIDNEY FAILURE, UNSPECIFIED Status: Acute (8) CKD (chronic kidney disease) stage 4, GFR 15-29 ml/min Code(s): N18.4 - CHRONIC KIDNEY DISEASE, STAGE 4 (SEVERE) Status: Chronic (9) Chronic anemia Code(s): D64.9 - ANEMIA, UNSPECIFIED Status: Chronic (10) chronic thrombocytopenia Status: Chronic - Plan poor prognosis with multiple medical issues in addition to bmi of 54, poor functional status, generalized edema needing diuresis with delores/ckd, elevated hco3 and now hypernatremia. off antibiotics from 08/23, on asp, protonix bipap/cpap when asleep, trial of bipap now 30 minutes later if he is still confused get abg and will assess if he needs to move to [facility], d/w staff. likely placement to [facility] when more stable PT/OT to mobiize as tolerated, has not ambulated yet. Palliative care for code status and goals of care I did d/w patient about code status, he wants everything done, not sure is he really understood what I was saying despite asking multiple times in different ways (is not fully oriented) (08/19/2019) Is at risk for resp failure and renal failure He needs to mobilize a bit for his edema to come down, counselled regarding this and he will work with therapy today
--- NOTE | 2019-08-24 12:57 | PRG ---
DATE OF SERVICE: 08/24/2019 SUBJECTIVE: Patient was seen and examined at bedside and overnight events noted. Patient denies any shortness of breath or chest pain or palpitation. No history of nausea or vomiting or diarrhea or fever or chills or cramps. OBJECTIVE: GENERAL: This is a morbidly obese male, in no apparent distress. VITAL SIGNS: Temperature 96.5. Heart rate 59. Respiratory rate . Blood pressure 127/73. HEENT: Atraumatic, normocephalic. Oral mucosa is moist. NECK: Supple. CARDIOVASCULAR: S1, S2 heard. Rate and rhythm regular. RESPIRATORY: Clear to auscultation. GASTROINTESTINAL: Abdomen is soft. MUSCULOSKELETAL: No tenderness. 2+ edema. DERMATOLOGIC: No skin rash. NEUROLOGIC: Alert and awake and oriented x3. No focal neurologic deficits. Moving all the extremities. Psychiatric: Mood and affect normal. LABORATORY DATA: Potassium 4.2, BUN is 81, creatinine is 2.25, sodium is 150. ASSESSMENT AND PLAN: 1. Acute kidney injury on chronic kidney disease, stage 3, stable. 2. Hypernatremia. 3. Metabolic alkalosis with respiratory acidosis. 4. Anemia of chronic disease. 5. Chronic edema. Renal function is stable. Diuretic therapy per Pulmonology. Job ID: [id number]
[2019-08-25] MEDS: Furosemide 40 MG/4 ML VIAL SLOW IVP SCH (05:28)
[2019-08-25 05:46] LABS: #Eosinphils 0.3 thou/uL (0.0-0.7); #Lymphocytes 1.1 thou/uL (1.20-3.40); #Monocytes 0.5 thou/uL (0.11-0.59); #Neutrophils 4.4 thou/uL (1.40-6.50); %Basophils 0.5 % (0.0-1.0); %Eosinophils 4.7 % (0.0-10.0); %Lymphocytes 16.9 % (21.0-51.0); %Monocytes 7.5 % (0.0-10.0); %Neutrophils 70.5 % (42.0-75.0); Hemoglobin 8.1 g/dL (14.0-18.0); Mean Corpuscular HGB CONC 28.1 g/dL (32.0-36.0); Mean Corpuscular Hemoglobin 24.5 pg (27.0-31.0); Mean Platelet Volume 12.4 fL (7.4-10.4); Platelet Count 102 thou/uL (130-400); RBC Distribution Width 19.6 % (11.5-14.5); White Blood Cell (WBC) Count 6.2 thou/uL (4.8-10.8)
[2019-08-25 05:59] LABS: Phosphorus 2.9 mg/dL (2.3-4.7)
[2019-08-25 06:04] LABS: BUN (Urea Nitrogen) 77 mg/dL (8.4-25.7); Calc. Creatinine Clearance 87 mL/min (70-130); Calcium 9.1 mg/dL (7.8-10.44); Estimated GFR-MDRD 37; Glucose 71 mg/dL (80-115); Magnesium 2.2 mg/dL (1.6-2.6)
[2019-08-25 06:13] LABS: Anion Gap 12 mmol/L (10-20); Carbon Dioxide 37 mmol/L (23-31); Chloride 106 mmol/L (98-107); Sodium 151 mmol/L (136-145)
[2019-08-25] MEDS: Aspirin 81 mg Enteric Coated Tablet PO SCH (08:44)
[2019-08-25] MEDS: Furosemide 80 MG TAB PO SCH ×2 (08:44→14:51)
[2019-08-25] MEDS: Saccharomyces boulardii 250 MG CAP PO SCH (08:44)
[2019-08-25] MEDS: Enoxaparin Sodium 40 MG/0.4 ML SYRINGE SC SCH (08:44)
--- NOTE | 2019-08-25 11:55 | PDOC.HOSPP ---
- Subjective Encounter Date: 08/25/19 Encounter Time: 09:40 Subjective: is on bipap and is oriented well this am responds well to questions - Objective Vital Signs & Weight: Vital Signs (12 hours) Temp Pulse Resp BP BP Pulse Ox 08/25/19 08:00 93 L 08/25/19 07:37 96.4 F L 65 18 105/54 L 93 L 08/25/19 04:00 97.3 F L 60 18 107/62 96 08/25/19 01:47 60 23 H 96 Weight Admit Weight 426 lb Weight 406 lb 12.046 oz Most Recent Monitor Data Heart Rate from ECG 60 NIBP 137/59 NIBP BP-Mean 85 Respiration from ECG 27 SpO2 99 I&O: 08/24/19 08/25/19 08/26/19 06:59 06:59 06:59 Intake Total 1000 100 Output Total 1450 1500 Balance -450 -1400 Result Diagrams: 08/25/19 05:22 08/25/19 05:22 Hospitalist ROS - Medication Medications: Active Medications Generic Name Dose Route Start Last Admin Trade Name Freq PRN Reason Stop Dose Admin Aspirin 81 mg 08/16/19 09:00 08/25/19 08:44 Ecotrin PO 81 mg DAILY BHARATHI Administration Dextrose/Water 25 gm 08/17/19 00:14 08/17/19 00:25 Dextrose 50% SLOW IVP 25 gm PRN PRN Administration Hypoglycemia Enoxaparin Sodium 40 mg 08/20/19 09:00 08/25/19 08:44 Lovenox SC 40 mg 0900 BHARATHI Administration Furosemide 80 mg 08/25/19 09:00 08/25/19 08:44 Lasix PO 80 mg 0900,1400 BHARATHI Administration Pantoprazole Sodium 40 mg 08/20/19 09:00 08/25/19 08:44 Protonix PO 40 mg DAILY BHARATHI Administration Saccharomyces Boulardii 250 mg 08/16/19 09:00 08/25/19 08:44 Florastor PO 250 mg DAILY BHARATHI Administration Sodium Chloride 10 ml 08/14/19 14:00 08/23/19 08:41 Flush - Normal Saline IVF 10 ml PRN PRN Administration Saline Flush - Exam General Appearance: awake alert Eye: PERRL, anicteric sclera ENT: no oropharyngeal lesions, dry oral mucosa Neck: supple, no JVD Heart: RRR, no murmur Respiratory: no wheezes, rales, rhonchi Gastrointestinal: soft, non-tender, normal bowel sounds Gastrointestinal - other findings: torso has severe edema in the dependent areas Extremities: no cyanosis, 1+ LE edema Neurological: cranial nerve grossly intact, no focal deficits Hosp A/P (1) Anasarca Code(s): R60.1 - GENERALIZED EDEMA Status: Acute (2) Morbid obesity with BMI of 50.0-59.9, adult Code(s): E66.01 - MORBID (SEVERE) OBESITY DUE TO EXCESS CALORIES; Z68.43 - BODY MASS INDEX (BMI) 50.0-59.9, ADULT Status: Acute (3) Acute and chronic respiratory failure with hypoxia Code(s): J96.21 - ACUTE AND CHRONIC RESPIRATORY FAILURE WITH HYPOXIA Status: Acute (4) Hypoventilation syndrome Code(s): R06.89 - OTHER ABNORMALITIES OF BREATHING Status: Acute (5) Aspiration pneumonia Code(s): J69.0 - PNEUMONITIS DUE TO INHALATION OF FOOD AND VOMIT Status: Acute Qualifiers: Aspiration pneumonia type: due to regurgitated food Laterality: bilateral Lung location: lower lobe of lung Qualified Code(s): J69.0 - Pneumonitis due to inhalation of food and vomit (6) Acute exacerbation of CHF (congestive heart failure) Code(s): I50.9 - HEART FAILURE, UNSPECIFIED Status: Acute Qualifiers: Heart failure type: combined systolic and diastolic Qualified Code(s): I50.43 - Acute on chronic combined systolic (congestive) and diastolic ( congestive) heart failure (7) DELORES (acute kidney injury) Code(s): N17.9 - ACUTE KIDNEY FAILURE, UNSPECIFIED Status: Acute (8) CKD (chronic kidney disease) stage 4, GFR 15-29 ml/min Code(s): N18.4 - CHRONIC KIDNEY DISEASE, STAGE 4 (SEVERE) Status: Chronic (9) Chronic anemia Code(s): D64.9 - ANEMIA, UNSPECIFIED Status: Chronic (10) chronic thrombocytopenia Status: Chronic - Plan poor prognosis with multiple medical issues in addition to bmi of 54, poor functional status, generalized edema needing diuresis with delores/ckd, elevated hco3 and now hypernatremia. off antibiotics from 08/23, on asp, protonix bipap/cpap when asleep, will need bipap for dc plan. likely placement to [facility] when more stable PT/OT to mobiize as tolerated, has not ambulated yet. Palliative care for code status and goals of care, is FULL code so far. I did d/w patient about code status, he wants everything done, not sure is he really understood what I was saying despite asking multiple times in different ways (is not fully oriented) (08/19/2019) Is at risk for resp failure and renal failure, readmission, encephalopathy due to co2 narcosis. He needs to mobilize a bit for his dependent portion edema to come down, counselled regarding this.
--- NOTE | 2019-08-25 12:08 | PRG ---
DATE OF SERVICE: 08/25/2019 SUBJECTIVE: Patient was seen and examined at bedside and overnight events noted. Patient denies any shortness of breath or chest pain or palpitation. No history of nausea or vomiting or diarrhea or fever or chills or cramps. OBJECTIVE: General: This is a morbidly obese male, in no apparent distress. Vital Signs: Temperature 96.4. Heart Rate 65. Respiratory rate . Blood pressure 105/54. HEENT: Atraumatic, normocephalic. Oral mucosa is moist. Neck: Supple. Cardiovascular: S1, S2 heard. Rate and rhythm regular. Respiratory: Clear to auscultation. Gastrointestinal: Abdomen is soft. Musculoskeletal: No tenderness. No edema. Dermatologic: No skin rash. Neurologic: Alert and awake and oriented x3. No focal neurologic deficits. Moving all the extremities. Psychiatric: Mood and affect normal. LABORATORY DATA: Sodium 151, potassium 4.0, BUN is 77, creatinine is 2.1. ASSESSMENT AND PLAN: 1. Acute kidney injury on chronic kidney stage 3. BUN and creatinine are slightly better. Diuretic dose reduced yesterday. Monitor I's and O's. 2. Hypernatremia. 3. Respiratory acidosis metabolic alkalosis. 4. Anemia of chronic disease. 5. Chronic edema. 6. Renal function is stable. Monitor fluid status. Avoid nephrotoxins. Job ID: [id number]
--- NOTE | 2019-08-25 14:48 | PRG ---
DATE OF SERVICE: 08/25/2019 SUBJECTIVE: Alan Zarate is afebrile. OBJECTIVE: VITAL SIGNS: Heart rate 65, respiratory rate is 13, oximetry is 93% on 3 L. LUNGS: Unchanged. HEART: Unchanged. ABDOMEN: Unchanged. LABORATORY DATA: White count 6.2, hemoglobin 8.2, platelet count 102,000. Sodium 151, potassium 4, chloride 106, bicarb 37, BUN 77, creatinine 2.18. IMPRESSION: 1. Obesity hypoventilation. 2. History of noncompliant with followup for the distant past sleep study. 3. Aptfo-cg-doqyneq kidney disease. 4. Systolic cardiomyopathy. 5. Moderate mitral regurgitation. 6. History of pacemaker. 7. Mild electrolyte abnormalities. In my opinion, he will undoubtedly need to be in some type of care environment after discharge. We will sign off. There is very little that I have to offer. He is not a candidate to go to a sleep lab as he is not a candidate probably to comply with placing CPAP on himself at any type to assisted environment. Prognosis is quite poor. Job ID: [id number]
[2019-08-26 06:41] LABS: #Basophils 0.1 thou/uL (0.0-0.2); #Eosinphils 0.3 thou/uL (0.0-0.7); #Lymphocytes 1.2 thou/uL (1.20-3.40); #Monocytes 0.5 thou/uL (0.11-0.59); #Neutrophils 5.4 thou/uL (1.40-6.50); %Basophils 0.9 % (0.0-1.0); %Eosinophils 4.3 % (0.0-10.0); %Lymphocytes 15.5 % (21.0-51.0); %Monocytes 6.2 % (0.0-10.0); %Neutrophils 73.1 % (42.0-75.0); Hemoglobin 8.1 g/dL (14.0-18.0); Mean Corpuscular HGB CONC 28.7 g/dL (32.0-36.0); Mean Corpuscular Hemoglobin 24.8 pg (27.0-31.0); Mean Corpuscular Volume 86.4 fL (78.0-98.0); Mean Platelet Volume 12.1 fL (7.4-10.4); Platelet Count 115 thou/uL (130-400); RBC Distribution Width 19.6 % (11.5-14.5); Red Blood Cell (RBC) Count 3.28 mill/uL (4.70-6.10); White Blood Cell (WBC) Count 7.4 thou/uL (4.8-10.8)
[2019-08-26 06:58] LABS: Phosphorus 2.8 mg/dL (2.3-4.7)
[2019-08-26 07:03] LABS: Anion Gap 12 mmol/L (10-20); BUN (Urea Nitrogen) 79 mg/dL (8.4-25.7); Calc. Creatinine Clearance 88 mL/min (70-130); Calcium 9.2 mg/dL (7.8-10.44); Carbon Dioxide 37 mmol/L (23-31); Chloride 106 mmol/L (98-107); Estimated GFR-MDRD 37; Glucose 71 mg/dL (80-115); Magnesium 2.3 mg/dL (1.6-2.6); Sodium 151 mmol/L (136-145)
[2019-08-26] MEDS: Furosemide 80 MG TAB PO SCH ×2 (09:31→14:30)
[2019-08-26] MEDS: Enoxaparin Sodium 40 MG/0.4 ML SYRINGE SC SCH (09:31)
[2019-08-26] MEDS: Aspirin 81 mg Enteric Coated Tablet PO SCH (09:31)
[2019-08-26] MEDS: Saccharomyces boulardii 250 MG CAP PO SCH (09:32)
--- NOTE | 2019-08-26 11:43 | PDOC.HOSPP ---
- Subjective Encounter Date: 08/26/19 Encounter Time: 09:45 Subjective: ate his breakfast, responds to questions, not fully oriented his first cousin at bedside - Objective Vital Signs & Weight: Vital Signs (12 hours) Temp Pulse Resp BP Pulse Ox 08/26/19 08:00 95 08/26/19 07:59 97.3 F L 60 20 134/76 96 Weight Admit Weight 426 lb Weight 407 lb 13.683 oz Most Recent Monitor Data Heart Rate from ECG 60 NIBP 137/59 NIBP BP-Mean 85 Respiration from ECG 27 SpO2 99 I&O: 08/25/19 08/26/19 08/27/19 06:59 06:59 06:59 Intake Total 100 200 Output Total 1500 1000 Balance -1400 -800 Result Diagrams: 08/26/19 06:26 08/26/19 06:26 Hospitalist ROS - Medication Medications: Active Medications Generic Name Dose Route Start Last Admin Trade Name Freq PRN Reason Stop Dose Admin Aspirin 81 mg 08/16/19 09:00 08/26/19 09:31 Ecotrin PO 81 mg DAILY BHARATHI Administration Dextrose/Water 25 gm 08/17/19 00:14 08/17/19 00:25 Dextrose 50% SLOW IVP 25 gm PRN PRN Administration Hypoglycemia Enoxaparin Sodium 40 mg 08/20/19 09:00 08/26/19 09:31 Lovenox SC 40 mg 0900 BHARATHI Administration Furosemide 80 mg 08/25/19 09:00 08/26/19 09:31 Lasix PO 80 mg 0900,1400 BHARATHI Administration Pantoprazole Sodium 40 mg 08/20/19 09:00 08/26/19 09:31 Protonix PO 40 mg DAILY BHARATHI Administration Saccharomyces Boulardii 250 mg 08/16/19 09:00 08/26/19 09:32 Florastor PO 250 mg DAILY BHARATHI Administration Sodium Chloride 10 ml 08/14/19 14:00 08/23/19 08:41 Flush - Normal Saline IVF 10 ml PRN PRN Administration Saline Flush - Exam General Appearance: awake alert Eye: PERRL, anicteric sclera ENT: no oropharyngeal lesions, moist mucosa Neck: supple, no JVD Heart: no murmur, no gallops Respiratory: no wheezes, no rales, rhonchi Gastrointestinal: soft, non-tender, non-distended, normal bowel sounds Extremities: no cyanosis, 1+ LE edema Neurological: cranial nerve grossly intact, no focal deficits Hosp A/P (1) Anasarca Code(s): R60.1 - GENERALIZED EDEMA Status: Acute (2) Morbid obesity with BMI of 50.0-59.9, adult Code(s): E66.01 - MORBID (SEVERE) OBESITY DUE TO EXCESS CALORIES; Z68.43 - BODY MASS INDEX (BMI) 50.0-59.9, ADULT Status: Acute (3) Acute and chronic respiratory failure with hypoxia Code(s): J96.21 - ACUTE AND CHRONIC RESPIRATORY FAILURE WITH HYPOXIA Status: Acute (4) Hypoventilation syndrome Code(s): R06.89 - OTHER ABNORMALITIES OF BREATHING Status: Acute (5) Aspiration pneumonia Code(s): J69.0 - PNEUMONITIS DUE TO INHALATION OF FOOD AND VOMIT Status: Acute Qualifiers: Aspiration pneumonia type: due to regurgitated food Laterality: bilateral Lung location: lower lobe of lung Qualified Code(s): J69.0 - Pneumonitis due to inhalation of food and vomit (6) Acute exacerbation of CHF (congestive heart failure) Code(s): I50.9 - HEART FAILURE, UNSPECIFIED Status: Acute Qualifiers: Heart failure type: combined systolic and diastolic Qualified Code(s): I50.43 - Acute on chronic combined systolic (congestive) and diastolic ( congestive) heart failure (7) DELORES (acute kidney injury) Code(s): N17.9 - ACUTE KIDNEY FAILURE, UNSPECIFIED Status: Acute (8) CKD (chronic kidney disease) stage 4, GFR 15-29 ml/min Code(s): N18.4 - CHRONIC KIDNEY DISEASE, STAGE 4 (SEVERE) Status: Chronic (9) Chronic anemia Code(s): D64.9 - ANEMIA, UNSPECIFIED Status: Chronic (10) chronic thrombocytopenia Status: Chronic - Plan poor prognosis with multiple medical issues in addition to bmi of 54, poor functional status, generalized edema needing diuresis with delores/ckd, elevated hco3 and now hypernatremia. off antibiotics from 08/23, on asp, protonix bipap/cpap when asleep, will need bipap for dc plan. likely placement to [facility] when more stable PT/OT to mobiize as tolerated, has not ambulated yet. Palliative care for code status and goals of care, is FULL code so far. I did d/w patient about code status, he wants everything done, not sure is he really understood what I was saying despite asking multiple times in different ways (is not fully oriented) (08/19/2019) Is at risk for resp failure and renal failure, readmission, encephalopathy due to co2 narcosis. He needs to mobilize a bit for his dependent portion edema to come down, counselled regarding this.
--- NOTE | 2019-08-26 15:16 | PRG ---
DATE OF SERVICE: 08/26/2019 SUBJECTIVE: Patient was seen and examined at bedside and overnight events noted. Patient denies any shortness of breath or chest pain or palpitation. No history of nausea or vomiting or diarrhea or fever or chills or cramps. OBJECTIVE: GENERAL: This is a morbidly obese male, in no apparent distress. VITAL SIGNS: Temperature 97.3. Heart rate 60. Respiratory rate 20. Blood pressure 134/76. HEENT: Atraumatic, normocephalic. Oral mucosa is moist NECK: Supple. CARDIOVASCULAR: S1, S2 heard. Rate and rhythm regular. RESPIRATORY: Clear to auscultation. GASTROINTESTINAL: Abdomen is soft. MUSCULOSKELETAL: No tenderness. No edema. DERMATOLOGIC: No skin rash. NEUROLOGIC: Alert and awake and oriented X3. No focal neurologic deficits. Moving all the extremities. PSYCHIATRIC: Mood and affect normal. LABORATORY DATA: Sodium 151, potassium is 4.0, BUN is 79, creatinine is 2.1. ASSESSMENT AND PLAN: 1. Acute kidney injury on chronic kidney disease, stage 3. 2. Hypernatremia. 3. Respiratory acidosis. 4. Metabolic alkalosis. 5. Anemia of chronic disease. 6. Chronic edema. Continue diuretics. Monitor labs. Job ID: [id number]
[2019-08-27 05:39] LABS: #Eosinphils 0.4 thou/uL (0.0-0.7); #Lymphocytes 1.1 thou/uL (1.20-3.40); #Monocytes 0.5 thou/uL (0.11-0.59); #Neutrophils 5.1 thou/uL (1.40-6.50); %Basophils 0.3 % (0.0-1.0); %Eosinophils 5.7 % (0.0-10.0); %Lymphocytes 15.6 % (21.0-51.0); %Monocytes 6.8 % (0.0-10.0); %Neutrophils 71.6 % (42.0-75.0); Hemoglobin 8.3 g/dL (14.0-18.0); Mean Corpuscular HGB CONC 28.1 g/dL (32.0-36.0); Mean Corpuscular Hemoglobin 24.4 pg (27.0-31.0); Mean Corpuscular Volume 86.8 fL (78.0-98.0); Mean Platelet Volume 11.7 fL (7.4-10.4); Platelet Count 118 thou/uL (130-400); RBC Distribution Width 19.7 % (11.5-14.5); White Blood Cell (WBC) Count 7.1 thou/uL (4.8-10.8)
[2019-08-27 06:04] LABS: Anion Gap 11 mmol/L (10-20); BUN (Urea Nitrogen) 77 mg/dL (8.4-25.7); Calc. Creatinine Clearance 92 mL/min (70-130); Calcium 9.2 mg/dL (7.8-10.44); Carbon Dioxide 37 mmol/L (23-31); Chloride 106 mmol/L (98-107); Estimated GFR-MDRD 39; Glucose 78 mg/dL (80-115); Magnesium 2.2 mg/dL (1.6-2.6); Potassium 3.9 mmol/L (3.5-5.1); Sodium 150 mmol/L (136-145)
[2019-08-27] MEDS: Furosemide 80 MG TAB PO SCH ×2 (08:24→15:40)
[2019-08-27] MEDS: Enoxaparin Sodium 40 MG/0.4 ML SYRINGE SC SCH (08:24)
[2019-08-27] MEDS: Saccharomyces boulardii 250 MG CAP PO SCH (08:24)
[2019-08-27] MEDS: Aspirin 81 mg Enteric Coated Tablet PO SCH (08:24)
--- NOTE | 2019-08-27 10:56 | PDOC.HOSPP ---
- Subjective Encounter Date: 08/27/19 Encounter Time: 08:30 Subjective: awake on bipap no new complaints moves extremities on bed is not fully oriented but responds to simple questions well - Objective Vital Signs & Weight: Vital Signs (12 hours) Temp Pulse Resp BP Pulse Ox 08/27/19 07:20 97.3 F L 59 L 20 143/77 H 99 08/27/19 00:12 66 21 H 93 L Weight Admit Weight 426 lb Weight 405 lb 10.409 oz Most Recent Monitor Data Heart Rate from ECG 60 NIBP 137/59 NIBP BP-Mean 85 Respiration from ECG 27 SpO2 99 I&O: 08/26/19 08/27/19 08/28/19 06:59 06:59 06:59 Intake Total 200 600 Output Total 1000 Balance -800 600 Result Diagrams: 08/27/19 05:20 08/27/19 05:20 Hospitalist ROS - Medication Medications: Active Medications Generic Name Dose Route Start Last Admin Trade Name Freq PRN Reason Stop Dose Admin Aspirin 81 mg 08/16/19 09:00 08/27/19 08:24 Ecotrin PO 81 mg DAILY BHARATHI Administration Dextrose/Water 25 gm 08/17/19 00:14 08/17/19 00:25 Dextrose 50% SLOW IVP 25 gm PRN PRN Administration Hypoglycemia Enoxaparin Sodium 40 mg 08/20/19 09:00 08/27/19 08:24 Lovenox SC 40 mg 0900 BHARATHI Administration Furosemide 80 mg 08/25/19 09:00 08/27/19 08:24 Lasix PO 80 mg 0900,1400 BHARATHI Administration Pantoprazole Sodium 40 mg 08/20/19 09:00 08/27/19 08:24 Protonix PO 40 mg DAILY BHARATHI Administration Saccharomyces Boulardii 250 mg 08/16/19 09:00 08/27/19 08:24 Florastor PO 250 mg DAILY BHRAATHI Administration Sodium Chloride 10 ml 08/14/19 14:00 08/23/19 08:41 Flush - Normal Saline IVF 10 ml PRN PRN Administration Saline Flush - Exam General Appearance: awake alert Eye: PERRL, anicteric sclera ENT: no oropharyngeal lesions, moist mucosa Neck: supple, no JVD Heart: RRR, no murmur Respiratory: no wheezes, no rales Gastrointestinal: soft, non-tender, non-distended, normal bowel sounds Gastrointestinal - other findings: dependent edema Extremities: no cyanosis, 2+ LE edema Neurological: cranial nerve grossly intact, no focal deficits Hosp A/P (1) Anasarca Code(s): R60.1 - GENERALIZED EDEMA Status: Acute (2) Morbid obesity with BMI of 50.0-59.9, adult Code(s): E66.01 - MORBID (SEVERE) OBESITY DUE TO EXCESS CALORIES; Z68.43 - BODY MASS INDEX (BMI) 50.0-59.9, ADULT Status: Acute (3) Acute and chronic respiratory failure with hypoxia Code(s): J96.21 - ACUTE AND CHRONIC RESPIRATORY FAILURE WITH HYPOXIA Status: Acute (4) Hypoventilation syndrome Code(s): R06.89 - OTHER ABNORMALITIES OF BREATHING Status: Acute (5) Aspiration pneumonia Code(s): J69.0 - PNEUMONITIS DUE TO INHALATION OF FOOD AND VOMIT Status: Resolved Qualifiers: Aspiration pneumonia type: due to regurgitated food Laterality: bilateral Lung location: lower lobe of lung Qualified Code(s): J69.0 - Pneumonitis due to inhalation of food and vomit (6) Acute exacerbation of CHF (congestive heart failure) Code(s): I50.9 - HEART FAILURE, UNSPECIFIED Status: Chronic Qualifiers: Heart failure type: combined systolic and diastolic Qualified Code(s): I50.43 - Acute on chronic combined systolic (congestive) and diastolic ( congestive) heart failure (7) DELORES (acute kidney injury) Code(s): N17.9 - ACUTE KIDNEY FAILURE, UNSPECIFIED Status: Acute (8) CKD (chronic kidney disease) stage 4, GFR 15-29 ml/min Code(s): N18.4 - CHRONIC KIDNEY DISEASE, STAGE 4 (SEVERE) Status: Chronic (9) Chronic anemia Code(s): D64.9 - ANEMIA, UNSPECIFIED Status: Chronic (10) chronic thrombocytopenia Status: Chronic - Plan poor prognosis with multiple medical issues in addition to bmi of 54, poor functional status, generalized edema needing diuresis with delores/ckd, elevated hco3 and hypernatremia. off antibiotics from 08/23, on asp, protonix bipap/cpap when asleep, will need bipap for dc plan. likely placement to [facility] when more stable PT/OT to mobiize as tolerated, has not ambulated yet, needs to sit in chair to mobilize his edema from dependent portions. Palliative care for code status and goals of care, is FULL code so far. Is at risk for resp failure, renal failure, readmission and encephalopathy due to co2 narcosis. He needs to mobilize a lot more for his dependent portion edema to come down, counselled regarding this.
--- NOTE | 2019-08-27 15:11 | PRG ---
DATE OF SERVICE: 08/27/2019 SUBJECTIVE: Patient was seen and examined at bedside and overnight events noted. Patient denies any shortness of breath or chest pain or palpitation. No history of nausea or vomiting or diarrhea or fever or chills or cramps. OBJECTIVE: GENERAL: This is a morbidly obese male, in no apparent distress. VITAL SIGNS: Temperature 97.3. Pulse 60. Respiratory rate 20. Blood pressure 143/77. HEENT: Atraumatic, normocephalic. Oral mucosa is moist. NECK: Supple. CARDIOVASCULAR: S1, S2 heard. Rate and rhythm regular. RESPIRATORY: Clear to auscultation. GASTROINTESTINAL: Abdomen is soft. MUSCULOSKELETAL: No tenderness. No edema. DERMATOLOGIC: No skin rash. NEUROLOGIC: Alert and awake and oriented x3. No focal neurologic deficits. Moving all the extremities. PSYCHIATRIC: Mood and affect normal. LABORATORY DATA: Potassium 3.9, BUN is 77, creatinine is 2.06. ASSESSMENT AND PLAN: 1. Acute kidney injury. Renal function is stable, slightly better. 2. Hypernatremia. 3. Respiratory acidosis with metabolic alkalosis. 4. Anemia of chronic disease. 5. Chronic edema. 6. Diuretics as tolerated. 7. Close monitoring. Job ID: [id number]
[2019-08-28 05:42] LABS: #Basophils 0.1 thou/uL (0.0-0.2); #Eosinphils 0.3 thou/uL (0.0-0.7); #Monocytes 0.4 thou/uL (0.11-0.59); #Neutrophils 4.4 thou/uL (1.40-6.50); %Basophils 0.9 % (0.0-1.0); %Eosinophils 4.9 % (0.0-10.0); %Lymphocytes 16.2 % (21.0-51.0); %Monocytes 6.9 % (0.0-10.0); %Neutrophils 71.1 % (42.0-75.0); Mean Corpuscular HGB CONC 27.5 g/dL (32.0-36.0); Mean Corpuscular Volume 87.4 fL (78.0-98.0); Mean Platelet Volume 11.7 fL (7.4-10.4); Platelet Count 119 thou/uL (130-400); RBC Distribution Width 19.8 % (11.5-14.5); Red Blood Cell (RBC) Count 3.31 mill/uL (4.70-6.10); White Blood Cell (WBC) Count 6.3 thou/uL (4.8-10.8)
[2019-08-28 05:44] LABS: Phosphorus 3.2 mg/dL (2.3-4.7)
[2019-08-28 05:46] LABS: Anion Gap 12 mmol/L (10-20); BUN (Urea Nitrogen) 75 mg/dL (8.4-25.7); Calc. Creatinine Clearance 105 mL/min (70-130); Calcium 9.2 mg/dL (7.8-10.44); Carbon Dioxide 37 mmol/L (23-31); Chloride 106 mmol/L (98-107); Estimated GFR-MDRD 46; Glucose 79 mg/dL (80-115); Magnesium 2.3 mg/dL (1.6-2.6); Potassium 4.1 mmol/L (3.5-5.1); Sodium 151 mmol/L (136-145)
[2019-08-28] MEDS: Aspirin 81 mg Enteric Coated Tablet PO SCH (08:07)
[2019-08-28] MEDS: Saccharomyces boulardii 250 MG CAP PO SCH (08:08)
[2019-08-28] MEDS: Enoxaparin Sodium 40 MG/0.4 ML SYRINGE SC SCH (08:08)
[2019-08-28] MEDS: Furosemide 80 MG TAB PO SCH ×2 (08:08→14:25)
--- NOTE | 2019-08-28 11:13 | PRG ---
DATE OF SERVICE: 08/28/2019 SUBJECTIVE: A 64-year-old gentleman, being seen for acute kidney injury. The patient denies any nausea, vomiting, or chest pain. OBJECTIVE: General: The patient is awake and alert. Vital Signs: Afebrile, pulse 60, breathing 16, blood pressure 132/61. HEENT: Head normocephalic and atraumatic. Eyes intact, no ulcers. Nose intact, no ulcers. Ears intact, no ulcers. Neck: Supple. No JVD. Chest: Symmetrical and clear. Cardiovascular: Shows S1 and S2, no rub, no murmur. Gastrointestinal: Abdomen is soft, bowel sounds positive. Extremities: Show no ulcers. The patient has 4+ edema. Skin: Shows no rash or petechiae. Musculoskeletal: Shows no joint swelling or stiffness. Genitourinary: Shows no Ko or CVA tenderness. Neurologic: Motor intact. Cranial nerves intact. LABORATORY DATA: Hemoglobin 8. Sodium 151, creatinine 1.8. ASSESSMENT AND PLAN: 1. Acute kidney injury with chronic kidney disease stage 3, stable. 2. Hypertension, stable. 3. Anemia, stable. 4. Edema, most likely lymphedema, we would recommend cardiology or vascular surgery evaluation. 5. Hypernatremia. We would recommend increasing free water or decreasing the dose of Lasix. Job ID: [id number]
--- NOTE | 2019-08-28 19:08 | PDOC.HOSPP ---
- Subjective Encounter Date: 08/28/19 Subjective: The patient was seen and examined. He is laying comfortably in bed and denies any new complaints. His urine is clear and urine output is adequate. He is tolerating his diet. - Objective Vital Signs & Weight: Vital Signs (12 hours) Temp Pulse Resp BP Pulse Ox 08/28/19 16:52 98.7 F 60 20 143/84 H 98 08/28/19 12:15 97.4 F L 60 20 139/61 99 08/28/19 08:31 97.5 F L 60 24 H 132/61 97 08/28/19 08:00 96 Weight Admit Weight 426 lb Weight 406 lb 1.463 oz Most Recent Monitor Data Heart Rate from ECG 60 NIBP 137/59 NIBP BP-Mean 85 Respiration from ECG 27 SpO2 99 I&O: 08/27/19 08/28/19 08/29/19 06:59 06:59 06:59 Intake Total 600 360 250 Output Total 450 650 Balance 600 -90 -400 Result Diagrams: 08/28/19 05:05 08/28/19 05:05 Additional Labs: Accuchecks 08/20/19 08/19/19 08/19/19 04:20 19:19 16:37 POC Glucose 99 122 H 109 08/19/19 11:20 POC Glucose 94 Hospitalist ROS - Medication Medications: Active Medications Generic Name Dose Route Start Last Admin Trade Name Freq PRN Reason Stop Dose Admin Aspirin 81 mg 08/16/19 09:00 08/28/19 08:07 Ecotrin PO 81 mg DAILY BHARATHI Administration Dextrose/Water 25 gm 08/17/19 00:14 08/17/19 00:25 Dextrose 50% SLOW IVP 25 gm PRN PRN Administration Hypoglycemia Enoxaparin Sodium 40 mg 08/20/19 09:00 08/28/19 08:08 Lovenox SC 40 mg 0900 BHARATHI Administration Furosemide 80 mg 08/25/19 09:00 08/28/19 14:25 Lasix PO 80 mg 0900,1400 BHARATHI Administration Pantoprazole Sodium 40 mg 08/20/19 09:00 08/28/19 08:08 Protonix PO 40 mg DAILY BHARATHI Administration Saccharomyces Boulardii 250 mg 08/16/19 09:00 08/28/19 08:08 Florastor PO 250 mg DAILY BHARATHI Administration Sodium Chloride 10 ml 08/14/19 14:00 08/23/19 08:41 Flush - Normal Saline IVF 10 ml PRN PRN Administration Saline Flush - Exam General Appearance: awake alert ENT: normocephalic atraumatic Neck: supple Heart: RRR, no murmur, no gallops Respiratory: CTAB Gastrointestinal: soft Neurological: cranial nerve grossly intact Hosp A/P - Plan Hosp A/P (1) Anasarca Code(s): R60.1 - GENERALIZED EDEMA Status: Acute (2) Morbid obesity with BMI of 50.0-59.9, adult Code(s): E66.01 - MORBID (SEVERE) OBESITY DUE TO EXCESS CALORIES; Z68.43 - BODY MASS INDEX (BMI) 50.0-59.9, ADULT Status: Acute (3) Acute and chronic respiratory failure with hypoxia Code(s): J96.21 - ACUTE AND CHRONIC RESPIRATORY FAILURE WITH HYPOXIA Status: Acute (4) Hypoventilation syndrome Code(s): R06.89 - OTHER ABNORMALITIES OF BREATHING Status: Acute (5) Aspiration pneumonia Code(s): J69.0 - PNEUMONITIS DUE TO INHALATION OF FOOD AND VOMIT Status: Resolved Qualifiers: Aspiration pneumonia type: due to regurgitated food Laterality: bilateral Lung location: lower lobe of lung Qualified Code(s): J69.0 - Pneumonitis due to inhalation of food and vomit (6) Acute exacerbation of CHF (congestive heart failure) Code(s): I50.9 - HEART FAILURE, UNSPECIFIED Status: Chronic Qualifiers: Heart failure type: combined systolic and diastolic Qualified Code(s): I50.43 - Acute on chronic combined systolic (congestive) and diastolic ( congestive) heart failure (7) DELORES (acute kidney injury) Code(s): N17.9 - ACUTE KIDNEY FAILURE, UNSPECIFIED Status: Acute (8) CKD (chronic kidney disease) stage 4, GFR 15-29 ml/min Code(s): N18.4 - CHRONIC KIDNEY DISEASE, STAGE 4 (SEVERE) Status: Chronic (9) Chronic anemia Code(s): D64.9 - ANEMIA, UNSPECIFIED Status: Chronic (10) chronic thrombocytopenia Status: Chronic - Plan 08/26: poor prognosis with multiple medical issues in addition to bmi of 54, poor functional status, generalized edema needing diuresis with delores/ckd, elevated hco3 and hypernatremia. off antibiotics from 08/23, on asp, protonix bipap/cpap when asleep, will need bipap for dc plan. likely placement to [facility] when more stable PT/OT to mobiize as tolerated, has not ambulated yet, needs to sit in chair to mobilize his edema from dependent portions. Palliative care for code status and goals of care, is FULL code so far. Is at risk for resp failure, renal failure, readmission and encephalopathy due to co2 narcosis. He needs to mobilize a lot more for his dependent portion edema to come down, counselled regarding this. 08/27: I will start the patient on D5W at 50 cc/h to help improve his hypernatremia. Case management will help arrange BiPAP for discharge. Rest of the plan as noted above.
[2019-08-28] MEDS ORDERED: Dextrose 5% in Water 1,000 ML IV SCH (19:15)
[2019-08-29 06:04] LABS: BUN (Urea Nitrogen) 74 mg/dL (8.4-25.7); Calc. Creatinine Clearance 112 mL/min (70-130); Calcium 9.2 mg/dL (7.8-10.44); Estimated GFR-MDRD 49; Glucose 85 mg/dL (80-115); Magnesium 2.3 mg/dL (1.6-2.6); Phosphorus 3.3 mg/dL (2.3-4.7)
[2019-08-29 06:13] LABS: Anion Gap 13 mmol/L (10-20); Carbon Dioxide 35 mmol/L (23-31); Chloride 106 mmol/L (98-107); Potassium 4.8 mmol/L (3.5-5.1); Sodium 149 mmol/L (136-145)
[2019-08-29 07:32] LABS: Mean Corpuscular HGB CONC 27.1 g/dL (32.0-36.0); Mean Corpuscular Hemoglobin 24.1 pg (27.0-31.0); Mean Platelet Volume 11.4 fL (7.4-10.4); Platelet Count 105 thou/uL (130-400); RBC Distribution Width 20.5 % (11.5-14.5); Red Blood Cell (RBC) Count 3.31 mill/uL (4.70-6.10); White Blood Cell (WBC) Count 5.6 thou/uL (4.8-10.8)
[2019-08-29 07:44] LABS: Band 3 % (5-11); Elliptocytes SLIGHT = 2-5 cells (100X) (0-1/hpf); Eosinophils 3 % (0-10); Hypochromia SLIGHT = 6-15 cells (100X) (0-5/hpf); Lymphocytes 16 % (21-51); MDiff Complete? YES; Monocytes 8 % (0-10); Neutrophil 70 % (42-75); Ovalocytes SLIGHT = 2-5 cells (100X) (0-1/hpf); Platelet Morphology Comment Appears Decreased; Polychromasia SLIGHT = 2-3 cells (100X) (0-2/hpf)
[2019-08-29] MEDS: Aspirin 81 mg Enteric Coated Tablet PO SCH (07:51)
[2019-08-29] MEDS: Furosemide 80 MG TAB PO SCH (07:52)
[2019-08-29] MEDS: Enoxaparin Sodium 40 MG/0.4 ML SYRINGE SC SCH (07:52)
[2019-08-29] MEDS: Saccharomyces boulardii 250 MG CAP PO SCH (07:52)
--- NOTE | 2019-08-29 09:28 | PDOC.HOSPP ---
- Subjective Encounter Date: 08/29/19 Subjective: No new complains - Objective Vital Signs & Weight: Vital Signs (12 hours) Temp Pulse Resp BP Pulse Ox 08/29/19 08:00 98.8 F 60 16 130/52 L 99 08/29/19 01:24 97 08/29/19 01:22 21 H Weight Admit Weight 426 lb Weight 6.547 oz Most Recent Monitor Data Heart Rate from ECG 60 NIBP 137/59 NIBP BP-Mean 85 Respiration from ECG 27 SpO2 99 I&O: 08/28/19 08/29/19 08/30/19 06:59 06:59 06:59 Intake Total 360 250 Output Total 450 1325 Balance -90 -1075 Result Diagrams: 08/29/19 07:02 08/29/19 05:37 Additional Labs: Accuchecks 08/20/19 08/19/19 08/19/19 04:20 19:19 16:37 POC Glucose 99 122 H 109 08/19/19 11:20 POC Glucose 94 Hospitalist ROS - Medication Medications: Active Medications Generic Name Dose Route Start Last Admin Trade Name Freq PRN Reason Stop Dose Admin Aspirin 81 mg 08/16/19 09:00 08/29/19 07:51 Ecotrin PO 81 mg DAILY BHARATHI Administration Dextrose/Water 25 gm 08/17/19 00:14 08/17/19 00:25 Dextrose 50% SLOW IVP 25 gm PRN PRN Administration Hypoglycemia Enoxaparin Sodium 40 mg 08/20/19 09:00 08/29/19 07:52 Lovenox SC 40 mg 0900 BHARATHI Administration Pantoprazole Sodium 40 mg 08/20/19 09:00 08/29/19 07:51 Protonix PO 40 mg DAILY BHARATHI Administration Saccharomyces Boulardii 250 mg 08/16/19 09:00 08/29/19 07:52 Florastor PO 250 mg DAILY BHARATHI Administration Sodium Chloride 10 ml 08/14/19 14:00 08/23/19 08:41 Flush - Normal Saline IVF 10 ml PRN PRN Administration Saline Flush - Exam General Appearance: NAD ENT: normocephalic atraumatic Neck: supple, no JVD Heart: RRR Respiratory: CTAB Gastrointestinal: soft Neurological: cranial nerve grossly intact Hosp A/P - Plan Hosp A/P (1) Anasarca Code(s): R60.1 - GENERALIZED EDEMA Status: Acute (2) Morbid obesity with BMI of 50.0-59.9, adult Code(s): E66.01 - MORBID (SEVERE) OBESITY DUE TO EXCESS CALORIES; Z68.43 - BODY MASS INDEX (BMI) 50.0-59.9, ADULT Status: Acute (3) Acute and chronic respiratory failure with hypoxia Code(s): J96.21 - ACUTE AND CHRONIC RESPIRATORY FAILURE WITH HYPOXIA Status: Acute (4) Hypoventilation syndrome Code(s): R06.89 - OTHER ABNORMALITIES OF BREATHING Status: Acute (5) Aspiration pneumonia Code(s): J69.0 - PNEUMONITIS DUE TO INHALATION OF FOOD AND VOMIT Status: Resolved Qualifiers: Aspiration pneumonia type: due to regurgitated food Laterality: bilateral Lung location: lower lobe of lung Qualified Code(s): J69.0 - Pneumonitis due to inhalation of food and vomit (6) Acute exacerbation of CHF (congestive heart failure) Code(s): I50.9 - HEART FAILURE, UNSPECIFIED Status: Chronic Qualifiers: Heart failure type: combined systolic and diastolic Qualified Code(s): I50.43 - Acute on chronic combined systolic (congestive) and diastolic ( congestive) heart failure (7) DELORES (acute kidney injury) Code(s): N17.9 - ACUTE KIDNEY FAILURE, UNSPECIFIED Status: Acute (8) CKD (chronic kidney disease) stage 4, GFR 15-29 ml/min Code(s): N18.4 - CHRONIC KIDNEY DISEASE, STAGE 4 (SEVERE) Status: Chronic (9) Chronic anemia Code(s): D64.9 - ANEMIA, UNSPECIFIED Status: Chronic (10) chronic thrombocytopenia Status: Chronic - Plan 08/26: poor prognosis with multiple medical issues in addition to bmi of 54, poor functional status, generalized edema needing diuresis with delores/ckd, elevated hco3 and hypernatremia. off antibiotics from 08/23, on asp, protonix bipap/cpap when asleep, will need bipap for dc plan. likely placement to [facility] when more stable PT/OT to mobiize as tolerated, has not ambulated yet, needs to sit in chair to mobilize his edema from dependent portions. Palliative care for code status and goals of care, is FULL code so far. Is at risk for resp failure, renal failure, readmission and encephalopathy due to co2 narcosis. He needs to mobilize a lot more for his dependent portion edema to come down, counselled regarding this. 08/27: I will start the patient on D5W at 50 cc/h to help improve his hypernatremia. Case management will help arrange BiPAP for discharge. Rest of the plan as noted above. 08/28: Increase D5W to 100 cc/h and decrease Lasix to 40 mg orally twice daily. Repeat BMP later this afternoon. If sodium level is improving, then the patient will be cleared to be discharged. BiPAP will be delivered to the nursing facility.
[2019-08-29] MEDS ORDERED: Tamsulosin HCl 0.4 MG CAP PO SCH (09:45)
[2019-08-29] MEDS: Furosemide 40 MG TAB PO SCH ×2 (10:11→14:41)
[2019-08-29] MEDS: Dextrose 5% in Water 1,000 ML IV SCH ×2 (10:12→20:17)
--- NOTE | 2019-08-29 13:13 | PRG ---
DATE OF SERVICE: 08/29/2019 SUBJECTIVE: A 64-year-old gentleman, being seen for acute kidney injury. The patient denies any nausea, vomiting, or chest pain. OBJECTIVE: GENERAL: The patient is awake and alert. VITAL SIGNS: Afebrile, pulse 60, breathing at 16, blood pressure 130/52. HEENT: Head normocephalic and atraumatic. Eyes intact, no ulcers. Nose intact, no ulcers. Ears intact, no ulcers. NECK: Supple. No JVD. CHEST: Symmetrical and clear. CARDIOVASCULAR: Shows S1 and S2, no rub, no murmur. GASTROINTESTINAL: Abdomen is soft, bowel sounds positive. EXTREMITIES: Show no edema or ulcers. SKIN: Shows no rash or petechiae. MUSCULOSKELETAL: Shows no joint swelling or stiffness. GENITOURINARY: Shows no Ko or CVA tenderness. NEUROLOGIC: Motor intact. Cranial nerves intact. LABORATORY DATA: Show hemoglobin 8. Creatinine 1.69. ASSESSMENT AND RECOMMENDATIONS: 1. Acute kidney injury, improved. 2. Chronic kidney disease, stage 3, stable. 3. Hypernatremia, improved. Continue free water. 4. Hypoalbuminemia. 5. Medication based on GFR, appropriate. 6. Overall prognosis is poor. The patient has multiorgan failure. Job ID: [id number]
[2019-08-29 13:58] LABS: Anion Gap 14 mmol/L (10-20); BUN (Urea Nitrogen) 77 mg/dL (8.4-25.7); Calc. Creatinine Clearance 0 mL/min (70-130); Calcium 9.4 mg/dL (7.8-10.44); Carbon Dioxide 35 mmol/L (23-31); Chloride 106 mmol/L (98-107); Estimated GFR-MDRD 49; Glucose 101 mg/dL (80-115); Potassium 4.6 mmol/L (3.5-5.1); Sodium 150 mmol/L (136-145)
[2019-08-30 06:30] LABS: #Eosinphils 0.2 thou/uL (0.0-0.7); #Lymphocytes 0.9 thou/uL (1.20-3.40); #Monocytes 0.4 thou/uL (0.11-0.59); #Neutrophils 3.7 thou/uL (1.40-6.50); %Basophils 0.2 % (0.0-1.0); %Eosinophils 3.8 % (0.0-10.0); %Lymphocytes 16.5 % (21.0-51.0); %Neutrophils 72.4 % (42.0-75.0); Hemoglobin 7.7 g/dL (14.0-18.0); Mean Corpuscular HGB CONC 27.8 g/dL (32.0-36.0); Mean Corpuscular Hemoglobin 24.6 pg (27.0-31.0); Mean Corpuscular Volume 88.5 fL (78.0-98.0); Mean Platelet Volume 12.5 fL (7.4-10.4); Platelet Count 91 thou/uL (130-400); RBC Distribution Width 20.2 % (11.5-14.5); Red Blood Cell (RBC) Count 3.12 mill/uL (4.70-6.10); White Blood Cell (WBC) Count 5.1 thou/uL (4.8-10.8)
[2019-08-30] MEDS: Dextrose 5% in Water 1,000 ML IV SCH ×4 (06:41→21:59)
[2019-08-30 06:45] LABS: Hypochromia SLIGHT = 6-15 cells (100X) (0-5/hpf); MDiff Complete? YES; Platelet Morphology Comment Appears Decreased; Target Cells SLIGHT = 2-5 cells (100X) (0-1/hpf)
[2019-08-30 06:48] LABS: Phosphorus 2.9 mg/dL (2.3-4.7)
[2019-08-30 06:50] LABS: BUN (Urea Nitrogen) 76 mg/dL (8.4-25.7); Calc. Creatinine Clearance 0 mL/min (70-130); Calcium 9.3 mg/dL (7.8-10.44); Estimated GFR-MDRD 54; Glucose 107 mg/dL (80-115); Magnesium 1.9 mg/dL (1.6-2.6)
[2019-08-30 06:59] LABS: Anion Gap 13 mmol/L (10-20); Carbon Dioxide 36 mmol/L (23-31); Chloride 104 mmol/L (98-107); Potassium 4.1 mmol/L (3.5-5.1); Sodium 149 mmol/L (136-145)
[2019-08-30] MEDS: Aspirin 81 mg Enteric Coated Tablet PO SCH (10:32)
[2019-08-30] MEDS: Saccharomyces boulardii 250 MG CAP PO SCH (10:32)
[2019-08-30] MEDS: Furosemide 40 MG TAB PO SCH ×2 (10:34→14:50)
[2019-08-30] MEDS: Enoxaparin Sodium 40 MG/0.4 ML SYRINGE SC SCH (10:34)
[2019-08-30 14:48] LABS: Anion Gap 9 mmol/L (10-20); BUN (Urea Nitrogen) 74 mg/dL (8.4-25.7); Calc. Creatinine Clearance 123 mL/min (70-130); Carbon Dioxide 37 mmol/L (23-31); Chloride 103 mmol/L (98-107); Estimated GFR-MDRD 55; Glucose 127 mg/dL (80-115); Potassium 3.8 mmol/L (3.5-5.1); Sodium 145 mmol/L (136-145)
--- NOTE | 2019-08-30 18:37 | PRG ---
DATE OF SERVICE: 08/30/2019 SUBJECTIVE: A 64-year-old gentleman being seen for acute kidney injury. The patient denied nausea, vomiting, or chest pain. OBJECTIVE: GENERAL: The patient is awake and alert. VITAL SIGNS: Afebrile, pulse 92, breathing at 16, blood pressure 122/75. HEENT: Head normocephalic and atraumatic. Eyes intact, no ulcers. Nose intact, no ulcers. Ears intact, no ulcers. NECK: Supple. No JVD. CHEST: Symmetrical and clear. CARDIOVASCULAR: Shows S1 and S2, no rub, no murmur. GASTROINTESTINAL: Abdomen is soft, bowel sounds positive. EXTREMITIES: Show no edema or ulcers. SKIN: Shows no rash or petechiae. MUSCULOSKELETAL: Shows no joint swelling or stiffness. GENITOURINARY: Shows no Ko or CVA tenderness. NEUROLOGIC: Motor intact. Cranial nerves intact. LABORATORY DATA: Shows hemoglobin 7.7. Creatinine 1.5. ASSESSMENT AND RECOMMENDATIONS: 1. Acute kidney injury, improved. 2. Hypernatremia, improved. 3. Anemia. Recommend transfusion. 4. Medication based on GFR, appropriate. No indication for dialysis. 5. Chronic lymphedema or venous insufficiency. [facility] per [facility]. Overall prognosis is poor. Job ID: [id number]
--- NOTE | 2019-08-30 20:48 | PDOC.HOSPP ---
- Subjective Encounter Date: 08/30/19 - Objective Vital Signs & Weight: Vital Signs (12 hours) Temp Pulse Pulse Resp BP BP Pulse Ox 08/30/19 19:34 60 22 H 127/71 95 08/30/19 17:40 98.3 F 60 22 H 122/75 08/30/19 17:21 98.0 F 60 22 H 132/66 98 Weight Admit Weight 426 lb Weight 406 lb 12.046 oz Most Recent Monitor Data Heart Rate from ECG 60 NIBP 137/59 NIBP BP-Mean 85 Respiration from ECG 27 SpO2 99 I&O: 08/29/19 08/30/19 08/31/19 06:59 06:59 06:59 Intake Total 250 1650 1480 Output Total 1325 1450 480 Balance -4960 698 9002 Result Diagrams: 08/30/19 05:49 08/30/19 14:15 Hospitalist ROS - Medication Medications: Active Medications Generic Name Dose Route Start Last Admin Trade Name Freq PRN Reason Stop Dose Admin Aspirin 81 mg 08/16/19 09:00 08/30/19 10:32 Ecotrin PO 81 mg DAILY BHARATHI Administration Dextrose/Water 25 gm 08/17/19 00:14 08/17/19 00:25 Dextrose 50% SLOW IVP 25 gm PRN PRN Administration Hypoglycemia Enoxaparin Sodium 40 mg 08/20/19 09:00 08/30/19 10:34 Lovenox SC 40 mg 0900 BHARATHI Administration Furosemide 40 mg 08/29/19 09:00 08/30/19 14:50 Lasix PO 40 mg 0900,1400 BHARATHI Administration Dextrose/Water 1,000 mls @ 150 mls/hr 08/30/19 08:41 08/30/19 18:13 D5w IV Not Given .[id number] BHARATHI Pantoprazole Sodium 40 mg 08/20/19 09:00 08/30/19 10:34 Protonix PO 40 mg DAILY BHARATHI Administration Saccharomyces Boulardii 250 mg 08/16/19 09:00 08/30/19 10:32 Florastor PO 250 mg DAILY BHARATHI Administration Sodium Chloride 10 ml 08/14/19 14:00 08/23/19 08:41 Flush - Normal Saline IVF 10 ml PRN PRN Administration Saline Flush Hosp A/P - Plan Hosp A/P (1) Anasarca Code(s): R60.1 - GENERALIZED EDEMA Status: Acute (2) Morbid obesity with BMI of 50.0-59.9, adult Code(s): E66.01 - MORBID (SEVERE) OBESITY DUE TO EXCESS CALORIES; Z68.43 - BODY MASS INDEX (BMI) 50.0-59.9, ADULT Status: Acute (3) Acute and chronic respiratory failure with hypoxia Code(s): J96.21 - ACUTE AND CHRONIC RESPIRATORY FAILURE WITH HYPOXIA Status: Acute (4) Hypoventilation syndrome Code(s): R06.89 - OTHER ABNORMALITIES OF BREATHING Status: Acute (5) Aspiration pneumonia Code(s): J69.0 - PNEUMONITIS DUE TO INHALATION OF FOOD AND VOMIT Status: Resolved Qualifiers: Aspiration pneumonia type: due to regurgitated food Laterality: bilateral Lung location: lower lobe of lung Qualified Code(s): J69.0 - Pneumonitis due to inhalation of food and vomit (6) Acute exacerbation of CHF (congestive heart failure) Code(s): I50.9 - HEART FAILURE, UNSPECIFIED Status: Chronic Qualifiers: Heart failure type: combined systolic and diastolic Qualified Code(s): I50.43 - Acute on chronic combined systolic (congestive) and diastolic ( congestive) heart failure (7) DELORES (acute kidney injury) Code(s): N17.9 - ACUTE KIDNEY FAILURE, UNSPECIFIED Status: Acute (8) CKD (chronic kidney disease) stage 4, GFR 15-29 ml/min Code(s): N18.4 - CHRONIC KIDNEY DISEASE, STAGE 4 (SEVERE) Status: Chronic (9) Chronic anemia Code(s): D64.9 - ANEMIA, UNSPECIFIED Status: Chronic (10) chronic thrombocytopenia Status: Chronic - Plan 08/26: poor prognosis with multiple medical issues in addition to bmi of 54, poor functional status, generalized edema needing diuresis with delores/ckd, elevated hco3 and hypernatremia. off antibiotics from 08/23, on asp, protonix bipap/cpap when asleep, will need bipap for dc plan. likely placement to [facility] when more stable PT/OT to mobiize as tolerated, has not ambulated yet, needs to sit in chair to mobilize his edema from dependent portions. Palliative care for code status and goals of care, is FULL code so far. Is at risk for resp failure, renal failure, readmission and encephalopathy due to co2 narcosis. He needs to mobilize a lot more for his dependent portion edema to come down, counselled regarding this. 08/27: I will start the patient on D5W at 50 cc/h to help improve his hypernatremia. Case management will help arrange BiPAP for discharge. Rest of the plan as noted above. 08/28: Increase D5W to 100 cc/h and decrease Lasix to 40 mg orally twice daily. Repeat BMP later this afternoon. If sodium level is improving, then the patient will be cleared to be discharged. BiPAP will be delivered to the nursing facility. 08/29: Hypernatremia slightly improving. Transfuse 1 unit of packed RBCs for hemoglobin level less than 8. Discharge in the morning.
[2019-08-31] MEDS: Dextrose 5% in Water 1,000 ML IV SCH ×2 (03:48→11:12)
[2019-08-31 07:55] LABS: #Eosinphils 0.3 thou/uL (0.0-0.7); #Lymphocytes 0.7 thou/uL (1.20-3.40); #Monocytes 0.4 thou/uL (0.11-0.59); #Neutrophils 3.6 thou/uL (1.40-6.50); %Basophils 0.6 % (0.0-1.0); %Eosinophils 5.6 % (0.0-10.0); %Lymphocytes 14.6 % (21.0-51.0); %Monocytes 7.8 % (0.0-10.0); %Neutrophils 71.5 % (42.0-75.0); Hemoglobin 7.3 g/dL (14.0-18.0); Mean Corpuscular HGB CONC 28.7 g/dL (32.0-36.0); Mean Corpuscular Hemoglobin 25.4 pg (27.0-31.0); Mean Corpuscular Volume 88.6 fL (78.0-98.0); Mean Platelet Volume 11.8 fL (7.4-10.4); Platelet Count 81 thou/uL (130-400); RBC Distribution Width 19.9 % (11.5-14.5); Red Blood Cell (RBC) Count 2.86 mill/uL (4.70-6.10)
[2019-08-31 08:08] LABS: Phosphorus 2.7 mg/dL (2.3-4.7)
[2019-08-31 08:10] LABS: BUN (Urea Nitrogen) 78 mg/dL (8.4-25.7); Calc. Creatinine Clearance 132 mL/min (70-130); Calcium 8.8 mg/dL (7.8-10.44); Estimated GFR-MDRD 59; Glucose 82 mg/dL (80-115)
[2019-08-31 08:19] LABS: Anion Gap 11 mmol/L (10-20); Carbon Dioxide 37 mmol/L (23-31); Chloride 101 mmol/L (98-107); Sodium 145 mmol/L (136-145)
[2019-08-31 08:40] LABS: Anisocytosis MODERATE=16-30 cells (100X) (0-5/hpf); Elliptocytes SLIGHT = 2-5 cells (100X) (0-1/hpf); Hypochromia SLIGHT = 6-15 cells (100X) (0-5/hpf); MDiff Complete? YES; Ovalocytes SLIGHT = 2-5 cells (100X) (0-1/hpf); Platelet Morphology Comment Appears Decreased; Polychromasia MODERATE = 3-4 cells (100X) (0-2/hpf)
[2019-08-31] MEDS: Aspirin 81 mg Enteric Coated Tablet PO SCH (08:49)
[2019-08-31] MEDS: Saccharomyces boulardii 250 MG CAP PO SCH (08:49)
[2019-08-31] MEDS: Enoxaparin Sodium 40 MG/0.4 ML SYRINGE SC SCH (08:49)
[2019-08-31] MEDS: Furosemide 40 MG TAB PO SCH ×2 (08:49→13:11)
--- NOTE | 2019-08-31 13:20 | PRG ---
DATE OF SERVICE: 08/31/2019 SUBJECTIVE: This 64-year-old gentleman being seen for acute kidney injury. The patient denied nausea or chest pain. OBJECTIVE: GENERAL: The patient is awake, alert. Vital Signs: Afebrile, pulse 75, breathing at 16, blood pressure 134/52. HEENT: Head normocephalic and atraumatic. Eyes intact, no ulcers. Nose intact, no ulcers. Ears intact, no ulcers. Neck: Supple. No JVD. Chest: Symmetrical and clear. Cardiovascular: Shows S1 and S2, no rub, no murmur. Gastrointestinal: Abdomen is soft, bowel sounds positive. Extremities: Show no edema or ulcers. Skin: Shows no rash or petechiae. Musculoskeletal: Shows no joint swelling or stiffness. Genitourinary: Shows no Ko or CVA tenderness. Neurologic: Motor intact. Cranial nerves intact. LABORATORY DATA: Hemoglobin 7.3. Creatinine 1.4. ASSESSMENT AND RECOMMENDATIONS: 1. Acute kidney injury with chronic kidney disease stage 3, stable. 2. Hypertension, stable. 3. Hyponatremia, resolved. 4. Metabolic alkalosis. 5. Anemia. Would recommend transfusion. 6. Medication based on GFR appropriate. Job ID: [id number]
[2019-08-31 15:02] VITALS: BP 117/66
[2019-08-31 15:20] VITALS: TEMP 97.4
[2019-08-31 16:39] VITALS: BMI 57.5
--- NOTE | 2019-08-31 22:09 | DIS ---
DATE OF ADMISSION: 08/13/2019 DATE OF DISCHARGE: 08/31/2019 DISCHARGE DIAGNOSES: 1. Anasarca. 2. Acute on chronic respiratory failure with hypoxia. 3. Obesity hypoventilation syndrome. 4. Aspiration pneumonia. 5. Acute on chronic heart failure, both systolic and diastolic. 6. Acute kidney injuries. 7. Chronic kidney disease, stage 4. 8. Chronic anemia. 9. Chronic thrombocytopenia. DISCHARGE MEDICATIONS: 1. Tylenol 650 mg orally q.6 hours as needed for fever or pain. 2. Allopurinol 300 mg orally daily. 3. Amlodipine 5 mg orally daily. 4. Atorvastatin 40 mg orally nightly. 5. Ferrous sulfate 325 mg orally daily. 6. Folic acid 1 mg orally daily. 7. Probiotic saccharomyces 250 mg orally daily. 8. Furosemide 20 mg orally daily. HISTORY OF PRESENT ILLNESS AND HOSPITAL COURSE: The patient is a 64-year-old male, morbidly obese, with past medical history of obesity hypoventilation syndrome, diabetes, hypertension, chronic kidney disease, CHF, who presented to the hospital for shortness of breath. He was initially admitted at [facility], where he was started on IV diuretics for volume overload. He was requiring BiPAP to maintain his oxygenation status. Despite that, his condition deteriorated and blood gas showed acidosis. The patient was subsequently transferred to our hospital for further management. The patient was started on Lasix drip and treatment with BiPAP was continued. We were able to achieve negative fluid balance. This led to gradual improvement in his respiratory status. However, his kidney function started to deteriorate due to the diuretics. He was switched from Lasix drip to intermittent dosing, which was gradually tapered off, leading to slight improvement in his creatinine level. The patient continued to require intermittent BiPAP due to his hypercarbia related to obesity hypoventilation syndrome and possible sleep apnea. His condition remained stable prior to discharge. Ko catheter which was placed initially for intake and output measurements has been removed without any evidence of urine retention. The patient's anemia slightly worsened prior to discharge from 8 to 7.3. This is likely due to repeated blood draws. The patient received 2 units of packed RBCs prior to discharge. Job ID: [id number]
== END 2019-08-31 17:05 | DRG 682 ==
LOC: CCU 13:50 → IMCU/EMU 08-16 13:07 → T4-A 08-18 12:40
PROVIDERS: ADMIT Internal Medicine; ATTEND Internal Medicine
PROC: 5A09457 Assistance with Respiratory Ventilation, 24-96 Consecutive Hours, Continuous Positive Airway Pressure (ICD-10-PCS; principal; 2019-08-13)
PROC: 5A09357 Assistance with Respiratory Ventilation, Less than 24 Consecutive Hours, Continuous Positive Airway Pressure (ICD-10-PCS; 2019-08-20)
PROC: 5A09357 Assistance with Respiratory Ventilation, Less than 24 Consecutive Hours, Continuous Positive Airway Pressure (ICD-10-PCS; 2019-08-24)
PROC: 30233N1 Transfusion of Nonautologous Red Blood Cells into Peripheral Vein, Percutaneous Approach (ICD-10-PCS; 2019-08-30)
PROC: 5A09357 Assistance with Respiratory Ventilation, Less than 24 Consecutive Hours, Continuous Positive Airway Pressure (ICD-10-PCS; 2019-08-31)
DX: N17.9 Acute kidney failure, unspecified (principal); J96.21 Acute and chronic respiratory failure with hypoxia; G92 Toxic encephalopathy; J69.0 Pneumonitis due to inhalation of food and vomit; I50.43 Acute on chronic combined systolic (congestive) and diastolic (congestive) heart failure; I13.0 Hypertensive heart and chronic kidney disease with heart failure and stage 1 through stage 4 chronic kidney disease, or unspecified chronic kidney disease; E87.4 Mixed disorder of acid-base balance; E66.2 Morbid (severe) obesity with alveolar hypoventilation; Z68.43 Body mass index [BMI] 50.0-59.9, adult; E87.0 Hyperosmolality and hypernatremia; I42.8 Other cardiomyopathies; E78.5 Hyperlipidemia, unspecified; M10.9 Gout, unspecified; D69.6 Thrombocytopenia, unspecified; E11.22 Type 2 diabetes mellitus with diabetic chronic kidney disease; E11.649 Type 2 diabetes mellitus with hypoglycemia without coma; E87.5 Hyperkalemia; D63.1 Anemia in chronic kidney disease; I49.5 Sick sinus syndrome; N18.4 Chronic kidney disease, stage 4 (severe); I34.0 Nonrheumatic mitral (valve) insufficiency; R53.81 Other malaise; T50.2X5A Adverse effect of carbonic-anhydrase inhibitors, benzothiadiazides and other diuretics, initial encounter; R31.9 Hematuria, unspecified; Z95.0 Presence of cardiac pacemaker
CPT/HCPCS: 36415; 36416; 36430; 36600; 71045; 80048; 80053; 81001; 82140; 82274; 82805; 83735; 84100; 85025; 86850; 86900; 86901; 87040; 87086; 93306; 93798; 94660; C9113; J1120; J1650; J1940; J2543; J3490; P9016

== ENCOUNTER 2019-08-31 17:34 | Observation (INO) | payer MEDICARE, MEDICAID ==
[2019-08-31] MEDS ORDERED: Ondansetron ODT 4 MG TAB PO PRN (22:30)
[2019-08-31] MEDS ORDERED: Acetaminophen 325 MG TAB PO PRN (22:30)
[2019-08-31] MEDS ORDERED: Calcium Carbonate 500 MG ChewTAB PO PRN (22:30)
[2019-08-31] MEDS ORDERED: Senokot S 8.6-50 MG TAB PO PRN (22:30)
[2019-09-01 00:04] VITALS: BMI 54.6
--- NOTE | 2019-09-01 01:50 | PDOC.EVN ---
Event Note - Event Note Event Note: Patient was d/c'd from hospital room this evening. When EMS arrived to transport patient, he was hypoxic with sp02 upper 80s, EMS refused to transport , so he was taken from his room down to the ER for readmission. Patient is tolerating NC 2-4L with Sp02 low 90s.
[2019-09-01 05:04] LABS: BUN (Urea Nitrogen) 80 mg/dL (8.4-25.7); Calc. Creatinine Clearance 120 mL/min (70-130); Calcium 9.3 mg/dL (7.8-10.44); Estimated GFR-MDRD 52; Glucose 94 mg/dL (80-115)
[2019-09-01 05:13] LABS: Anion Gap 12 mmol/L (10-20); Carbon Dioxide 37 mmol/L (23-31); Chloride 101 mmol/L (98-107); Potassium 4.3 mmol/L (3.5-5.1); Sodium 146 mmol/L (136-145)
[2019-09-01 05:21] LABS: %Eosinophils 4.4 % (0.0-10.0); %Lymphocytes 15.2 % (21.0-51.0); %Monocytes 7.2 % (0.0-10.0); %Neutrophils 72.2 % (42.0-75.0); Hemoglobin 8.2 g/dL (14.0-18.0); Mean Corpuscular HGB CONC 27.7 g/dL (32.0-36.0); Mean Corpuscular Hemoglobin 24.5 pg (27.0-31.0); Mean Corpuscular Volume 88.5 fL (78.0-98.0); Mean Platelet Volume 11.7 fL (7.4-10.4); Platelet Count 83 thou/uL (130-400); RBC Distribution Width 19.6 % (11.5-14.5); Red Blood Cell (RBC) Count 3.33 mill/uL (4.70-6.10)
[2019-09-01 05:22] LABS: #Basophils 0.1 thou/uL (0.0-0.2); #Eosinphils 0.3 thou/uL (0.0-0.7); #Lymphocytes 0.9 thou/uL (1.20-3.40); #Monocytes 0.4 thou/uL (0.11-0.59); #Neutrophils 4.3 thou/uL (1.40-6.50); Hypochromia SLIGHT = 6-15 cells (100X) (0-5/hpf); MDiff Complete? YES; Platelet Morphology Comment Appears Decreased
[2019-09-01] MEDS ORDERED: Furosemide 40 MG/4 ML VIAL SLOW IVP SCH (08:45)
--- NOTE | 2019-09-01 08:54 | PDOC.BPN ---
- Brief Progress Note The [facility] and BiPAP. EMS did not feel comfortable taking the patient and the patient was taken directly to the ER without leaving the hospital. The patient's vitals remained stable. He saturating well on 3 L of oxygen. He denies any shortness of breath. He is sitting in bed comfortably eating his breakfast. He remains stable to be discharged today.
[2019-09-01] MEDS ORDERED: Furosemide 100 MG/10 ML VIAL SLOW IVP SCH (09:00)
--- NOTE | 2019-09-01 10:47 | RAD ---
CHEST 1 VIEW: HISTORY: Hypoxia. COMPARISON: 08/16/2019. FINDINGS: Evidence for bilateral pleural effusions and bilateral alveolar opacity changes throughout both lungs . Little overall change from 08/16/2019. IMPRESSION: Overall stable findings with extensive bilateral alveolar parenchymal changes and pleural effusions. Left implantable cardioverter defibrillator. POS: RRE
--- NOTE | 2019-09-01 12:57 | HP ---
CHIEF COMPLAINT: Shortness of breath. HISTORY OF PRESENT ILLNESS: The patient is a 64-year-old male, morbidly obese, with past medical history of obesity hypoventilation syndrome, diabetes, hypertension, chronic kidney disease, and CHF, who was admitted to the hospital for volume overload and hypoxic and hypercarbic respiratory failure due to obesity hypoventilation syndrome and worsening CHF. The patient was managed with IV diuresis and was discharged from the hospital yesterday. However, prior to discharge, he received a unit of packed RBCs, that led to increasing shortness of breath and hypoxia at the time of EMS arrival. The patient was sent to the ER and was brought in again. REVIEW OF SYSTEMS: Negative except as above. PAST MEDICAL HISTORY: As above. PAST SURGICAL HISTORY: No significant past history. ALLERGIES: NO KNOWN ALLERGIES. PHYSICAL EXAMINATION: GENERAL: The patient is alert and oriented x3. He is morbidly obese. HEENT: Head is normocephalic and atraumatic. NECK: Supple. CHEST: Auscultation revealed diminished breath sounds bilaterally. CARDIOVASCULAR: Revealed normal S1 and S2. No murmurs, rubs, or gallop. ABDOMEN: Soft, distended, and nontender. EXTREMITIES: Showed bilateral edema. ASSESSMENT: 1. Ulomx-yr-gltwmqm hypoxic and hypercarbic respiratory failure. 2. Zpdty-gl-ngmmrpv heart failure with preserved ejection fraction. 3. Obesity hypoventilation syndrome. 4. Anasarca. 5. Chronic kidney disease. 6. Anemia. 7. Hypernatremia. PLAN: 1. The patient will be started on IV Lasix twice daily. 2. 2 g sodium diet. 3. Fluid restriction. 4. BiPAP as needed. 5. Continue supplemental oxygen. 6. Palliative Care consult. The patient's overall long-term prognosis is poor. Job ID: [id number]
[2019-09-01] MEDS: Furosemide 40 MG/4 ML VIAL SLOW IVP SCH (15:11)
[2019-09-01] MEDS ORDERED: Insulin Regular 300 UNITS/3 ML VIAL SC PRN (17:20)
[2019-09-01] MEDS ORDERED: Dextrose 50% Abboject 50 ML SYRINGE IVP PRN (17:20)
[2019-09-01] MEDS ORDERED: Dextrose 5% in Water 1,000 ML IV PRN (17:20)
[2019-09-01] MEDS: Atorvastatin Calcium 40 MG TAB PO SCH (21:17)
[2019-09-02 05:06] LABS: BUN (Urea Nitrogen) 87 mg/dL (8.4-25.7); Calc. Creatinine Clearance 115 mL/min (70-130); Calcium 9.4 mg/dL (7.8-10.44); Estimated GFR-MDRD 50; Glucose 92 mg/dL (80-115)
[2019-09-02 05:16] LABS: Anion Gap 15 mmol/L (10-20); Carbon Dioxide 36 mmol/L (23-31); Chloride 102 mmol/L (98-107); Potassium 4.3 mmol/L (3.5-5.1); Sodium 149 mmol/L (136-145)
[2019-09-02] MEDS: Furosemide 40 MG/4 ML VIAL SLOW IVP SCH ×2 (06:07→13:45)
[2019-09-02 06:44] LABS: Anisocytosis SLIGHT = 6-15 cells (100X) (0-5/hpf); Band 2 % (5-11); Elliptocytes SLIGHT = 2-5 cells (100X) (0-1/hpf); Eosinophils 7 % (0-10); Lymphocytes 22 % (21-51); MDiff Complete? YES; Mean Corpuscular HGB CONC 28.9 g/dL (32.0-36.0); Mean Corpuscular Hemoglobin 25.6 pg (27.0-31.0); Mean Corpuscular Volume 88.5 fL (78.0-98.0); Mean Platelet Volume 9.1 fL (7.4-10.4); Monocytes 3 % (0-10); Neutrophil 65 % (42-75); Platelet Count 85 thou/uL (130-400); Platelet Morphology Comment Appears Decreased; RBC Distribution Width 19.8 % (11.5-14.5); Red Blood Cell (RBC) Count 3.12 mill/uL (4.70-6.10); White Blood Cell (WBC) Count 6.5 thou/uL (4.8-10.8)
[2019-09-02] MEDS: Amlodipine 5 MG TAB PO SCH (08:04)
[2019-09-02] MEDS: Atorvastatin Calcium 40 MG TAB PO SCH (21:23)
--- NOTE | 2019-09-02 21:25 | PDOC.HOSPP ---
- Subjective Encounter Date: 09/02/19 - Objective Vital Signs & Weight: Vital Signs (12 hours) Temp Pulse Resp BP Pulse Ox 09/02/19 19:25 97.8 F 60 16 148/66 H 99 09/02/19 15:35 97.7 F 64 24 H 135/63 94 L 09/02/19 11:05 97.9 F 60 24 H 131/60 97 Weight Admit Weight 414 lb 4.8 oz Weight 414 lb I&O: 09/01/19 09/02/19 09/03/19 06:59 06:59 06:59 Intake Total 878 920 Output Total 2150 1000 Balance -1272 -80 Result Diagrams: 09/02/19 04:19 09/02/19 04:19 Additional Labs: Accuchecks 09/02/19 09/02/19 09/02/19 17:04 10:07 05:36 POC Glucose 100 90 102 Hospitalist ROS - Medication Medications: Active Medications Generic Name Dose Route Start Last Admin Trade Name Freq PRN Reason Stop Dose Admin Amlodipine Besylate 5 mg 09/02/19 09:00 09/02/19 08:04 Norvasc PO 5 mg DAILY BHARATHI Administration Atorvastatin Calcium 40 mg 09/01/19 21:00 09/01/19 21:17 Lipitor PO 40 mg HS BHARATHI Administration Furosemide 40 mg 09/01/19 14:00 09/02/19 13:45 Lasix SLOW IVP 40 mg 0600,1400 BHARATHI Administration - Exam General Appearance: awake alert ENT: normocephalic atraumatic Neck: supple Heart: RRR Respiratory: normal chest expansion, no tachypnea Gastrointestinal: soft, non-tender Hosp A/P (1) Acute and chronic respiratory failure with hypoxia Code(s): J96.21 - ACUTE AND CHRONIC RESPIRATORY FAILURE WITH HYPOXIA Status: Acute (2) Anasarca Code(s): R60.1 - GENERALIZED EDEMA Status: Acute (3) Hypoventilation syndrome Code(s): R06.89 - OTHER ABNORMALITIES OF BREATHING Status: Acute (4) Morbid obesity with BMI of 50.0-59.9, adult Code(s): E66.01 - MORBID (SEVERE) OBESITY DUE TO EXCESS CALORIES; Z68.43 - BODY MASS INDEX (BMI) 50.0-59.9, ADULT Status: Acute (5) Acute exacerbation of CHF (congestive heart failure) Code(s): I50.9 - HEART FAILURE, UNSPECIFIED Status: Chronic Qualifiers: (6) CKD (chronic kidney disease) stage 4, GFR 15-29 ml/min Code(s): N18.4 - CHRONIC KIDNEY DISEASE, STAGE 4 (SEVERE) Status: Chronic (7) Chronic anemia Code(s): D64.9 - ANEMIA, UNSPECIFIED Status: Chronic (8) Aspiration pneumonia Code(s): J69.0 - PNEUMONITIS DUE TO INHALATION OF FOOD AND VOMIT Status: Resolved Qualifiers: - Plan He remains short of breath. Continue IV diuresis. BiPAP at night. Monitor intake and output. Continue low-salt diet.
[2019-09-03 04:50] LABS: BUN (Urea Nitrogen) 88 mg/dL (8.4-25.7); Calc. Creatinine Clearance 120 mL/min (70-130); Calcium 9.6 mg/dL (7.8-10.44); Estimated GFR-MDRD 52; Glucose 83 mg/dL (80-115)
[2019-09-03 04:59] LABS: Anion Gap 15 mmol/L (10-20); Carbon Dioxide 35 mmol/L (23-31); Chloride 102 mmol/L (98-107); Potassium 4.2 mmol/L (3.5-5.1); Sodium 148 mmol/L (136-145)
[2019-09-03 05:11] LABS: Anisocytosis SLIGHT = 6-15 cells (100X) (0-5/hpf); Band 2 % (5-11); Elliptocytes SLIGHT = 2-5 cells (100X) (0-1/hpf); Eosinophils 5 % (0-10); Hemoglobin 7.8 g/dL (14.0-18.0); Hypochromia SLIGHT = 6-15 cells (100X) (0-5/hpf); Large Platelets SLIGHT; Lymphocytes 20 % (21-51); MDiff Complete? YES; Mean Corpuscular Hemoglobin 25.4 pg (27.0-31.0); Mean Corpuscular Volume 87.6 fL (78.0-98.0); Mean Platelet Volume 12.7 fL (7.4-10.4); Monocytes 9 % (0-10); Neutrophil 64 % (42-75); Platelet Count 87 thou/uL (130-400); Platelet Morphology Comment Appears Decreased; Polychromasia SLIGHT = 2-3 cells (100X) (0-2/hpf); RBC Distribution Width 20.2 % (11.5-14.5); Red Blood Cell (RBC) Count 3.05 mill/uL (4.70-6.10); Target Cells SLIGHT = 2-5 cells (100X) (0-1/hpf)
[2019-09-03] MEDS: Furosemide 40 MG/4 ML VIAL SLOW IVP SCH ×2 (05:59→15:39)
[2019-09-03] MEDS: Amlodipine 5 MG TAB PO SCH (08:01)
--- NOTE | 2019-09-03 19:24 | PDOC.HOSPP ---
- Subjective Encounter Date: 09/03/19 Subjective: The patient was seen and examined. Shortness of breath is slightly improving. - Objective Vital Signs & Weight: Vital Signs (12 hours) Temp Pulse Resp BP BP Pulse Ox 09/03/19 15:15 97.8 F 60 22 H 134/63 93 L 09/03/19 11:25 97.6 F 60 22 H 145/80 H 98 09/03/19 07:57 98 F 61 27 H 129/65 99 Weight Admit Weight 414 lb 4.8 oz Weight 413 lb I&O: 09/02/19 09/03/19 09/04/19 06:59 06:59 06:59 Intake Total 878 1020 Output Total 2150 1100 Balance -1272 -80 Result Diagrams: 09/03/19 04:00 09/03/19 04:00 Additional Labs: Accuchecks 09/03/19 09/03/19 09/03/19 17:01 11:22 05:34 POC Glucose 96 392 H 84 09/02/19 20:30 POC Glucose 102 Hospitalist ROS - Medication Medications: Active Medications Generic Name Dose Route Start Last Admin Trade Name Freq PRN Reason Stop Dose Admin Amlodipine Besylate 5 mg 09/02/19 09:00 09/03/19 08:01 Norvasc PO 5 mg DAILY BHARATHI Administration Atorvastatin Calcium 40 mg 09/01/19 21:00 09/02/19 21:23 Lipitor PO 40 mg HS BHARATHI Administration Furosemide 40 mg 09/01/19 14:00 09/03/19 15:39 Lasix SLOW IVP 40 mg 0600,1400 BHARATHI Administration Insulin Human Regular 0 units 09/01/19 17:20 09/03/19 12:41 Humulin R SC 6 unit .MILD SLIDING PRN Administration MILD SLIDING SCALE Protocol - Exam General Appearance: awake alert Neck: supple Heart: RRR Respiratory: no wheezes, rhonchi, tachypneic Gastrointestinal: soft Neurological: cranial nerve grossly intact, no focal deficits Hosp A/P (1) Acute and chronic respiratory failure with hypoxia Code(s): J96.21 - ACUTE AND CHRONIC RESPIRATORY FAILURE WITH HYPOXIA Status: Acute (2) Anasarca Code(s): R60.1 - GENERALIZED EDEMA Status: Acute (3) Hypoventilation syndrome Code(s): R06.89 - OTHER ABNORMALITIES OF BREATHING Status: Acute (4) Morbid obesity with BMI of 50.0-59.9, adult Code(s): E66.01 - MORBID (SEVERE) OBESITY DUE TO EXCESS CALORIES; Z68.43 - BODY MASS INDEX (BMI) 50.0-59.9, ADULT Status: Acute (5) Acute exacerbation of CHF (congestive heart failure) Code(s): I50.9 - HEART FAILURE, UNSPECIFIED Status: Chronic Qualifiers: (6) CKD (chronic kidney disease) stage 4, GFR 15-29 ml/min Code(s): N18.4 - CHRONIC KIDNEY DISEASE, STAGE 4 (SEVERE) Status: Chronic (7) Chronic anemia Code(s): D64.9 - ANEMIA, UNSPECIFIED Status: Chronic (8) Aspiration pneumonia Code(s): J69.0 - PNEUMONITIS DUE TO INHALATION OF FOOD AND VOMIT Status: Resolved Qualifiers: - Plan Acute on chronic respiratory failure with hypoxia and hypercarbia due to CHF and obesity hypoventilation syndrome. The patient is tolerating diuresis well so far with minimal elevation in his baseline creatinine. Continue to use BiPAP as needed and nocturnally. Continue low-salt diet and strict intake and output. The patient has overall prognosis is poor. I had a discussion with the patient and his sister today about goals of care. He stated that he does not want aggressive measures but he is not ready for hospice yet.
[2019-09-03] MEDS: Atorvastatin Calcium 40 MG TAB PO SCH (20:23)
[2019-09-04 05:05] LABS: BUN (Urea Nitrogen) 83 mg/dL (8.4-25.7); Calc. Creatinine Clearance 130 mL/min (70-130); Estimated GFR-MDRD 58; Glucose 74 mg/dL (80-115)
[2019-09-04 05:14] LABS: Anion Gap 16 mmol/L (10-20); Carbon Dioxide 34 mmol/L (23-31); Chloride 102 mmol/L (98-107); Potassium 4.3 mmol/L (3.5-5.1); Sodium 148 mmol/L (136-145)
[2019-09-04] MEDS: Furosemide 40 MG/4 ML VIAL SLOW IVP SCH ×2 (05:15→15:08)
--- NOTE | 2019-09-04 07:48 | PDOC.HOSPP ---
- Subjective Encounter Date: 09/04/19 Encounter Time: 12:00 Subjective: Patient with improved SOB. On 3L NC O2. No chest pain. No other complaints. - Objective Vital Signs & Weight: Vital Signs (12 hours) Temp Pulse Resp BP Pulse Ox 09/04/19 07:43 96 F L 60 20 159/84 H 100 09/04/19 03:40 98.6 F 70 18 127/85 100 09/04/19 00:22 95 09/04/19 00:20 60 28 H 98 09/03/19 20:23 97.7 F 60 22 H 161/70 H 98 Weight Admit Weight 414 lb 4.8 oz Weight 401 lb 8 oz I&O: 09/03/19 09/04/19 09/05/19 06:59 06:59 06:59 Intake Total 1020 1280 Output Total 1100 800 Balance -80 480 Result Diagrams: 09/04/19 04:16 09/04/19 04:16 Additional Labs: Accuchecks 09/04/19 09/03/19 09/03/19 05:29 20:09 17:01 POC Glucose 89 92 96 09/03/19 11:22 POC Glucose 392 H Hospitalist ROS - Review of Systems Constitutional: denies: fever, chills Respiratory: reports: shortness of breath. denies: cough Cardiovascular: denies: chest pain Gastrointestinal: denies: nausea, vomiting, abdominal pain - Medication Medications: Active Medications Generic Name Dose Route Start Last Admin Trade Name Freq PRN Reason Stop Dose Admin Amlodipine Besylate 5 mg 09/02/19 09:00 09/03/19 08:01 Norvasc PO 5 mg DAILY BHARATHI Administration Atorvastatin Calcium 40 mg 09/01/19 21:00 09/03/19 20:23 Lipitor PO 40 mg HS BHARATHI Administration Furosemide 40 mg 09/01/19 14:00 09/04/19 05:15 Lasix SLOW IVP 40 mg 0600,1400 BHARATHI Administration Insulin Human Regular 0 units 09/01/19 17:20 09/03/19 12:41 Humulin R SC 6 unit .MILD SLIDING PRN Administration MILD SLIDING SCALE Protocol - Exam General Appearance: NAD, awake alert ENT: moist mucosa Heart: RRR, no murmur, no gallops, no rubs Respiratory: CTAB, no wheezes, no rales, no ronchi Gastrointestinal: soft, non-tender, non-distended, normal bowel sounds Psychiatric: normal affect, normal behavior, A&O x 3 Hosp A/P (1) Acute and chronic respiratory failure with hypoxia Code(s): J96.21 - ACUTE AND CHRONIC RESPIRATORY FAILURE WITH HYPOXIA Status: Acute (2) Acute on chronic combined systolic (congestive) and diastolic (congestive) heart failure Code(s): I50.43 - ACUTE ON CHRONIC COMBINED SYSTOLIC AND DIASTOLIC HRT FAIL Status: Acute (3) Hypoventilation syndrome Code(s): R06.89 - OTHER ABNORMALITIES OF BREATHING Status: Chronic (4) Anasarca Code(s): R60.1 - GENERALIZED EDEMA Status: Acute (5) Morbid obesity with BMI of 50.0-59.9, adult Code(s): E66.01 - MORBID (SEVERE) OBESITY DUE TO EXCESS CALORIES; Z68.43 - BODY MASS INDEX (BMI) 50.0-59.9, ADULT Status: Acute (6) Acute worsening of stage 3 chronic kidney disease Code(s): N18.3 - CHRONIC KIDNEY DISEASE, STAGE 3 (MODERATE) Status: Acute - Plan Acute on chronic respiratory failure with hypoxia and hypercarbia due to mixed CHF and obesity hypoventilation syndrome. The patient is tolerating diuresis well so far with improvement in his creatinine today. Continue to use BiPAP as needed and nocturnally. Continue low-salt diet and strict intake and output. The patient has overall prognosis is poor. Previous physician had a discussion with the patient and his sister about goals of care. He stated that he does not want aggressive measures but he is not ready for hospice yet. Stable for d/c to SNF once arranged.
[2019-09-04] MEDS ORDERED: Sodium Chloride 0.9% 10 ML ONE (08:59)
[2019-09-04] MEDS: Ferrous Sulfate 325 MG TAB PO SCH (10:06)
[2019-09-04] MEDS: Amlodipine 5 MG TAB PO SCH (10:07)
[2019-09-04] MEDS: Saccharomyces boulardii 250 MG CAP PO SCH (10:07)
[2019-09-04] MEDS: Folic Acid 1 MG TAB PO SCH (10:07)
[2019-09-04 10:34] LABS: Eosinophils 5 % (0-10); Hemoglobin 8.9 g/dL (14.0-18.0); Hypochromia SLIGHT = 6-15 cells (100X) (0-5/hpf); Large Platelets SLIGHT; Lymphocytes 15 % (21-51); MDiff Complete? YES; Mean Corpuscular HGB CONC 28.6 g/dL (32.0-36.0); Mean Corpuscular Hemoglobin 25.5 pg (27.0-31.0); Mean Corpuscular Volume 88.9 fL (78.0-98.0); Mean Platelet Volume 10.5 fL (7.4-10.4); Monocytes 9 % (0-10); Neutrophil 71 % (42-75); Platelet Count 92 thou/uL (130-400); Platelet Morphology Comment Appears Decreased; Polychromasia SLIGHT = 2-3 cells (100X) (0-2/hpf); RBC Distribution Width 20.2 % (11.5-14.5); Red Blood Cell (RBC) Count 3.49 mill/uL (4.70-6.10); White Blood Cell (WBC) Count 5.8 thou/uL (4.8-10.8)
[2019-09-04] MEDS: Atorvastatin Calcium 40 MG TAB PO SCH (20:33)
[2019-09-05 04:49] LABS: Band 5 % (5-11); Hemoglobin 8.2 g/dL (14.0-18.0); Hypochromia SLIGHT = 6-15 cells (100X) (0-5/hpf); Lymphocytes 14 % (21-51); MDiff Complete? YES; Mean Corpuscular HGB CONC 27.6 g/dL (32.0-36.0); Mean Corpuscular Volume 90.4 fL (78.0-98.0); Mean Platelet Volume 12.6 fL (7.4-10.4); Neutrophil 81 % (42-75); Platelet Count 79 thou/uL (130-400); Platelet Morphology Comment Appears Decreased; RBC Distribution Width 20.2 % (11.5-14.5); Red Blood Cell (RBC) Count 3.28 mill/uL (4.70-6.10); Target Cells SLIGHT = 2-5 cells (100X) (0-1/hpf); White Blood Cell (WBC) Count 4.8 thou/uL (4.8-10.8)
[2019-09-05] MEDS: Furosemide 40 MG/4 ML VIAL SLOW IVP SCH (05:20)
[2019-09-05 05:28] LABS: BUN (Urea Nitrogen) 84 mg/dL (8.4-25.7); Calc. Creatinine Clearance 138 mL/min (70-130); Calcium 9.7 mg/dL (7.8-10.44); Estimated GFR-MDRD 64; Glucose 87 mg/dL (80-115)
[2019-09-05 05:37] LABS: Anion Gap 12 mmol/L (10-20); Carbon Dioxide 39 mmol/L (23-31); Chloride 103 mmol/L (98-107); Potassium 4.3 mmol/L (3.5-5.1); Sodium 150 mmol/L (136-145)
--- NOTE | 2019-09-05 07:52 | PDOC.HOSPP ---
- Subjective Encounter Date: 09/05/19 Encounter Time: 09:30 Subjective: Patient without complaints. Eating breakfast well this morning. - Objective Vital Signs & Weight: Vital Signs (12 hours) Temp Pulse Resp BP Pulse Ox 09/05/19 03:47 98.8 F 61 18 102/59 L 97 Weight Admit Weight 414 lb 4.8 oz Weight 401 lb 12.8 oz I&O: 09/04/19 09/05/19 09/06/19 06:59 06:59 06:59 Intake Total 1280 957 Output Total 800 Balance 480 957 Result Diagrams: 09/05/19 04:04 09/05/19 04:04 Additional Labs: Accuchecks 09/05/19 09/04/19 09/04/19 05:36 20:12 15:59 POC Glucose 85 115 H 99 09/04/19 11:29 POC Glucose 100 Hospitalist ROS - Review of Systems Constitutional: denies: fever, chills Respiratory: denies: cough, shortness of breath Cardiovascular: denies: chest pain Gastrointestinal: denies: nausea, vomiting, abdominal pain - Medication Medications: Active Medications Generic Name Dose Route Start Last Admin Trade Name Freq PRN Reason Stop Dose Admin Amlodipine Besylate 5 mg 09/02/19 09:00 09/04/19 10:07 Norvasc PO 5 mg DAILY BHARATHI Administration Atorvastatin Calcium 40 mg 09/01/19 21:00 09/04/19 20:33 Lipitor PO 40 mg HS BHARATHI Administration Ferrous Sulfate 325 mg 09/04/19 08:00 09/04/19 10:06 Feosol PO 325 mg QAM-WM BHARATHI Administration Folic Acid 1 mg 09/04/19 09:00 09/04/19 10:07 Folvite PO 1 mg DAILY BHARATHI Administration Furosemide 40 mg 09/01/19 14:00 09/05/19 05:20 Lasix SLOW IVP 40 mg 0600,1400 BHARATHI Administration Insulin Human Regular 0 units 09/01/19 17:20 09/03/19 12:41 Humulin R SC 6 unit .MILD SLIDING PRN Administration MILD SLIDING SCALE Protocol Saccharomyces Boulardii 250 mg 09/04/19 09:00 09/04/19 10:07 Florastor PO 250 mg DAILY BHARATHI Administration - Exam General Appearance: NAD, awake alert ENT: moist mucosa Heart: RRR, no murmur, no gallops, no rubs Respiratory: CTAB, no wheezes, no rales, no ronchi Gastrointestinal: soft, non-tender, non-distended, normal bowel sounds Extremities: 1+ LE edema Psychiatric: normal affect, normal behavior Hosp A/P (1) Acute and chronic respiratory failure with hypoxia Code(s): J96.21 - ACUTE AND CHRONIC RESPIRATORY FAILURE WITH HYPOXIA Status: Acute (2) Acute on chronic combined systolic (congestive) and diastolic (congestive) heart failure Code(s): I50.43 - ACUTE ON CHRONIC COMBINED SYSTOLIC AND DIASTOLIC HRT FAIL Status: Acute (3) Hypoventilation syndrome Code(s): R06.89 - OTHER ABNORMALITIES OF BREATHING Status: Chronic (4) Anasarca Code(s): R60.1 - GENERALIZED EDEMA Status: Acute (5) Morbid obesity with BMI of 50.0-59.9, adult Code(s): E66.01 - MORBID (SEVERE) OBESITY DUE TO EXCESS CALORIES; Z68.43 - BODY MASS INDEX (BMI) 50.0-59.9, ADULT Status: Acute (6) Acute worsening of stage 3 chronic kidney disease Code(s): N18.3 - CHRONIC KIDNEY DISEASE, STAGE 3 (MODERATE) Status: Acute - Plan Acute on chronic respiratory failure with hypoxia and hypercarbia due to mixed CHF and obesity hypoventilation syndrome. The patient is tolerating diuresis well so far with improvement in his creatinine today. Continue to use BiPAP as needed and nocturnally. Continue low-salt diet and strict intake and output. The patient has overall prognosis is poor. Previous physician had a discussion with the patient and his sister about goals of care. He stated that he does not want aggressive measures but he is not ready for hospice yet. Palliative care discussed with family again today and they are considering switching to hospice after SNF stay. Stable for d/c to SNF this morning at 0930
[2019-09-05 08:46] VITALS: BP 124/55; TEMP 97.4
[2019-09-05] MEDS: Amlodipine 5 MG TAB PO SCH (08:47)
[2019-09-05] MEDS: Saccharomyces boulardii 250 MG CAP PO SCH (08:47)
[2019-09-05] MEDS: Folic Acid 1 MG TAB PO SCH (08:48)
[2019-09-05] MEDS: Ferrous Sulfate 325 MG TAB PO SCH (08:48)
--- NOTE | 2019-09-06 03:35 | DIS ---
DATE OF ADMISSION: 08/31/2019 DATE OF DISCHARGE: 09/05/2019 PRIMARY CARE PHYSICIAN: Alan Conner. REASON FOR ADMISSION: Hypoxia. DISCHARGE DIAGNOSES: 1. Acute on chronic respiratory failure with hypoxia. 2. Acute on chronic combined systolic and diastolic congestive heart failure. 3. Hypoventilation syndrome. 4. Anasarca. 5. Morbid obesity. 6. Acute worsening of stage 3 chronic kidney disease, improved. PROCEDURES: None. CONSULTATIONS: None. SUMMARY OF HOSPITAL COURSE: This is a 64-year-old male, who was in the hospital for CHF exacerbation and chronic kidney disease, was managed over the course of quite few days with some stabilization of his CHF with diuresis as well as stabilization of his creatinine. Patient was eventually to be discharged. However, when EMS arrived in his room, he was in the 80s on unknown oxygen supplementation and so he was brought straight down to the ER from his room for readmission. In the ER, patient was noted to be saturating in the low 90s on 2 L nasal cannula without any distress. He was brought back into the hospital, was given IV diuresis with improvement in his creatinine and in good oxygen saturations on low-dose nasal cannula oxygen. Conversations were had with the family and patient concerning the appropriateness of moving him to hospice given his severe CHF and lack of response to therapy. They are considering it. At this time, he is being discharged to a SNF while they consider possibly switch him over to hospice at some later date. DISCHARGE MANAGEMENT: Discharged to [facility] facility at [facility]. ACTIVITY: As tolerated. DIET: Healthy heart fluid-restricted diet with Ensure high-protein muscle supplements. THERAPY: Occupational and physical therapy. EQUIPMENT SUPPLIES: Oxygen and BiPAP at night. FOLLOWUP: Follow up with Dr. An in 2 to 3 weeks, Dr. Demetri Ackerman in 2 to 3 weeks, with Dr. Petty and with Dr. Prasad in 10 days. DISCHARGE MEDICATIONS: 1. Acetaminophen as needed. 2. Amlodipine 5 mg daily. 3. Atorvastatin 40 mg at night. 4. Ferrous sulfate 325 mg daily. 5. Folic acid 1 mg daily. 6. Daily probiotic 250 mg daily. 7. Torsemide 20 mg daily. Job ID: [id number]
== END 2019-09-05 09:58 ==
LOC: ERS 17:34 → 2NO 19:49
PROVIDERS: ADMIT Internal Medicine; ATTEND Internal Medicine
DX: I13.0 Hypertensive heart and chronic kidney disease with heart failure and stage 1 through stage 4 chronic kidney disease, or unspecified chronic kidney disease (principal); E11.22 Type 2 diabetes mellitus with diabetic chronic kidney disease; N18.3 Chronic kidney disease, stage 3 (moderate); I50.43 Acute on chronic combined systolic (congestive) and diastolic (congestive) heart failure; J96.21 Acute and chronic respiratory failure with hypoxia; R60.1 Generalized edema; D64.9 Anemia, unspecified; E87.0 Hyperosmolality and hypernatremia; E66.01 Morbid (severe) obesity due to excess calories; Z68.43 Body mass index [BMI] 50.0-59.9, adult; Z79.4 Long term (current) use of insulin; Z79.899 Other long term (current) drug therapy
CPT/HCPCS: 36415; 36416; 36430; 71045; 80048; 85007; 85025; 85027; 94660; 94760; 96374; 96376; G0378; J1815; J1940

== ENCOUNTER 2019-09-05 15:33 | Inpatient (IN) | payer MEDICARE, MEDICAID ==
[2019-09-05] MEDS ORDERED: Acetaminophen 500 MG TAB PO PRN (18:21)
[2019-09-05] MEDS ORDERED: HumaLOG 300 UNITS/3 ML VIAL SC PRN (18:37)
[2019-09-05] MEDS ORDERED: Dextrose 50% Abboject 50 ML SYRINGE SLOW IVP PRN (18:37)
[2019-09-05] MEDS ORDERED: Dextrose 5% in Water 1,000 ML IV PRN (18:37)
--- NOTE | 2019-09-05 18:52 | PDOC.HHP ---
Hospitalist HPI - History of Present Illness shortness of breath History of Present Illness: 64yo M w/ MHx of RADHA and mixed heart failure presented with shortness of breath. Patient was discharged earlier today after being treated for RADHA and diuresed for pulmonary edema, but presented to [place] ED with acute on chronic respiratory failure requiring Bipap. Was then transfered to [place] as direct admit. On encounter, lying in bed and appears in mild distress due to dyspnea. Could not elicit ROS due to being on Bipap. Hospitalist ROS - Review of Systems ROS unobtainable: due to endotracheal tube (Due to bipap and shortness of breath ) Hospitalist History - Past Medical History Source: old records (PMH: RADHA, HF mixed, HTN, T2DM, CKD PSH: could not elicit SHx: not smoking, drinking alcohol, or using recreational drugs FHx: HTN, obesity Medications: reconciled in EMR Allergies: NKDA) - Exam General Appearance: awake alert General - other findings: following commands, in mild distress due to shortness of breath Eye: PERRL Eye - other findings: strabismus ENT: normocephalic atraumatic, dry oral mucosa Neck: no JVD Heart: RRR, no murmur, no gallops, no rubs Heart - other findings: paced atrial rhythm on telemetry, L thorax pacemaker site appears noninfect Respiratory: no wheezes, no rales, no ronchi Respiratory - other findings: diffusely reduced; BIPAP in place Gastrointestinal: soft, non-tender, non-distended, normal bowel sounds Extremities: 2+ LE edema Extremities - other findings: to mid tibial level, b/l, pitting, equal Psychiatric - other findings: follows command to squeeze finger Hospitalist Results - Labs Result Diagrams: 09/05/19 20:21 - Radiology Interpretation Chest x-ray Status: image reviewed by me Additional Comment: no acute cardiopulmonary process; pulmonary edema significantly improved compared to previous admission Hospitalist H&P A/P - Problem (1) Acute and chronic respiratory failure with hypoxia Code(s): J96.21 - ACUTE AND CHRONIC RESPIRATORY FAILURE WITH HYPOXIA Status: Acute (2) Morbid obesity with BMI of 50.0-59.9, adult Code(s): E66.01 - MORBID (SEVERE) OBESITY DUE TO EXCESS CALORIES; Z68.43 - BODY MASS INDEX (BMI) 50.0-59.9, ADULT Status: Acute (3) Chronic anemia Code(s): D64.9 - ANEMIA, UNSPECIFIED Status: Chronic (4) Hypoventilation syndrome Code(s): R06.89 - OTHER ABNORMALITIES OF BREATHING Status: Chronic - Plan Plan: #[facility] #acute on chronic hypoxic hypercapnic respiratory failure -Was on 4L NC during ABG showing abovementioned failure -acute failure likely due to requirement for continuous positive pressure support/RADHA (90% of [facility] have RADHA) -may require continuous BiPAP/CPAP; requested CM to assess LTAC; once loses weight, may be better candidate for unsupported ventilation -consider bariatric consultation assuming patient wants to pursue this direction -hypotension on presentation may be related to hypoxia-associated reduced preload due to pulmonary vasocontriction -continuous Bipap; Goal to normalize PCO2 -ABG; if remains hypercapnic, can increase bipap parameters as per PCCM -PCCM consulted #HFmEF #hypernatremia -on previous admission, presented with pulmonary edema -responded to diuresis; CXR on DC (today) showed significant improvement -Physical exam no significant inpiratory rales -in context of hypotension and abovementioned, gentle 1/2NS #acute on chronic anemia elevated RDW, hypochromia but recent iron studies not c/w iron deficiency; likely prerenal and hemodilution due to hypervolemic state, may be UGI bleed HgB 8.9->7.4 in 2 days Hemogram, if HgB not stable, transfuse PRBC, start PPI Full code. Sister is surrogate GI PPx: no Ix DVT PPx: SCDs
[2019-09-05] MEDS ORDERED: Furosemide 40 MG/4 ML VIAL SLOW IVP SCH (19:15)
[2019-09-05 19:52] LABS: Actual Bicarbonate (HCO3a) 43.9 mEq/L (22-28); Base Excess (BEa) 15.9 mEq/L (-2.0 to +3.0); Calcium, Ionized (arterial) 1.25 mmol/L (1.12-1.30); Carboxyhemoglobin (COHb) 2.5 gm% (0.0-3.0); Hemoglobin (Hb) 8.3 g/dL (14.0-18.0); O2 Tension (PaO2), arterial 78.5 mmHg (> 80.0); Potassium - ABG Lab 4.05 mmol/L (3.70-5.30); pH, Arterial 7.35 (7.35-7.45)
[2019-09-05 19:57] LABS: CO2 Tension 82.2 mmHg (35.0-45.0); Puncture Site L RADIAL
[2019-09-05 19:59] LABS: Troponin I 0.026 ng/mL (< 0.028)
[2019-09-05] MEDS: Atorvastatin Calcium 40 MG TAB PO SCH (21:23)
[2019-09-05] MEDS: Sodium Chloride 0.45% 1,000 ML IV SCH (21:23)
[2019-09-06] MEDS ORDERED: Furosemide 40 MG/4 ML VIAL SLOW IVP SCH ×2 (06:00)
[2019-09-06 07:08] LABS: BUN (Urea Nitrogen) 82 mg/dL (8.4-25.7); Calc. Creatinine Clearance 161 mL/min (70-130); Calcium 9.6 mg/dL (7.8-10.44); Estimated GFR-MDRD 71; Glucose 63 mg/dL (80-115)
[2019-09-06 07:17] LABS: Anion Gap 16 mmol/L (10-20); Carbon Dioxide 36 mmol/L (23-31); Chloride 101 mmol/L (98-107); Sodium 149 mmol/L (136-145)
[2019-09-06 08:36] LABS: #Eosinphils 0.3 thou/uL (0.0-0.7); #Lymphocytes 0.8 thou/uL (1.20-3.40); #Monocytes 0.5 thou/uL (0.11-0.59); #Neutrophils 4.3 thou/uL (1.40-6.50); %Basophils 0.2 % (0.0-1.0); %Eosinophils 4.4 % (0.0-10.0); %Lymphocytes 14.2 % (21.0-51.0); %Neutrophils 72.3 % (42.0-75.0); Anisocytosis MODERATE=16-30 cells (100X) (0-5/hpf); Hemoglobin 7.6 g/dL (14.0-18.0); Hypochromia SLIGHT = 6-15 cells (100X) (0-5/hpf); MDiff Complete? YES; Mean Corpuscular HGB CONC 28.8 g/dL (32.0-36.0); Mean Corpuscular Hemoglobin 25.7 pg (27.0-31.0); Mean Corpuscular Volume 89.3 fL (78.0-98.0); Mean Platelet Volume 12.5 fL (7.4-10.4); Platelet Count 82 thou/uL (130-400); Platelet Morphology Comment Appears Decreased; Polychromasia SLIGHT = 2-3 cells (100X) (0-2/hpf); RBC Distribution Width 20.3 % (11.5-14.5); Red Blood Cell (RBC) Count 2.94 mill/uL (4.70-6.10); White Blood Cell (WBC) Count 5.9 thou/uL (4.8-10.8)
[2019-09-06] MEDS ORDERED: Prevnar 13-Val Conj/PF 0.5 ML SYRINGE IM ONE (09:00)
[2019-09-06] MEDS ORDERED: Amlodipine 5 MG TAB PO SCH (09:00)
[2019-09-06] MEDS: Folic Acid 1 MG TAB PO SCH (09:38)
[2019-09-06] MEDS: Ferrous Sulfate 325 MG TAB PO SCH (09:38)
--- NOTE | 2019-09-06 10:09 | PDOC.HOSPP ---
- Subjective Encounter Date: 09/06/19 Encounter Time: 08:00 Subjective: no overnight events. this morning, more alert, feeling and breathing better. has no complaints. - Objective Vital Signs & Weight: Vital Signs (12 hours) Temp Pulse Resp Pulse Ox 09/06/19 08:28 96 09/06/19 08:21 60 33 H 93 L 09/06/19 07:23 98.2 F 09/06/19 05:22 98.3 F 09/06/19 03:45 97.9 F 09/06/19 01:56 96.8 F L 09/05/19 23:15 92.4 F L Weight Weight 425 lb 5.758 oz Most Recent Monitor Data Heart Rate from ECG 60 NIBP 134/51 NIBP BP-Mean 78 Respiration from ECG 27 SpO2 92 I&O: 09/05/19 09/06/19 09/07/19 06:59 06:59 06:59 Intake Total 860 Output Total 1455 135 Balance -595 -135 Result Diagrams: 09/06/19 06:27 09/06/19 06:27 Additional Labs: Accuchecks 09/06/19 09/05/19 05:47 20:27 POC Glucose 79 89 Hospitalist ROS - Review of Systems Constitutional: denies: fever, chills, sweats, weakness, malaise, other Respiratory: reports: SOB with excertion. denies: cough, dry, shortness of breath, hemoptysis, pleuritic pain, sputum, wheezing, other Cardiovascular: denies: chest pain, palpitations, orthopnea, paroxysmal noc. dyspnea, edema, light headedness, other Gastrointestinal: denies: nausea, vomiting, abdominal pain, diarrhea, constipation, melena, hematochezia, other - Medication Medications: Active Medications Generic Name Dose Route Start Last Admin Trade Name Freq PRN Reason Stop Dose Admin Atorvastatin Calcium 40 mg 09/05/19 21:00 09/05/19 21:23 Lipitor PO Not Given HS BHARATHI Ferrous Sulfate 325 mg 09/06/19 08:00 09/06/19 09:38 Feosol PO 325 mg QAM-WM BHARATHI Administration Folic Acid 1 mg 09/06/19 09:00 09/06/19 09:38 Folvite PO 1 mg DAILY BHARATHI Administration Sodium Chloride 1,000 mls @ 50 mls/hr 09/05/19 20:00 09/05/19 21:23 1/2 Normal Saline IV 1,000 mls .Q20H BHARATHI Administration - Exam General Appearance: NAD, awake alert General - other findings: morbidly obese ENT: dry oral mucosa Neck: no JVD Heart: RRR, no murmur, no gallops, no rubs Respiratory: CTAB, no wheezes, no rales, no ronchi, tachypneic Respiratory - other findings: diffusely reduced breath sounds Gastrointestinal: soft, non-tender, non-distended, normal bowel sounds Extremities: 2+ LE edema Extremities - other findings: unchanged Psychiatric: normal affect, normal behavior, A&O x 3 Hosp A/P (1) Acute and chronic respiratory failure with hypoxia Code(s): J96.21 - ACUTE AND CHRONIC RESPIRATORY FAILURE WITH HYPOXIA Status: Acute (2) Morbid obesity with BMI of 50.0-59.9, adult Code(s): E66.01 - MORBID (SEVERE) OBESITY DUE TO EXCESS CALORIES; Z68.43 - BODY MASS INDEX (BMI) 50.0-59.9, ADULT Status: Acute (3) Chronic anemia Code(s): D64.9 - ANEMIA, UNSPECIFIED Status: Chronic (4) Hypoventilation syndrome Code(s): R06.89 - OTHER ABNORMALITIES OF BREATHING Status: Chronic - Plan #OHS #acute on chronic hypoxic hypercapnic respiratory failure -acute type I failure resolved; should be on continouos PPV considering significantly elevated PCO2. Oxygen supplementation by itself may be harmful resulting in hypercapnia, tachypnea, and recurrence of acute failure -continuous PPV; can hold for medications and meals -PCC onboard #HFmEF #hypernatremia -stable -continue gentle 1/2NS #acute on chronic anemia Stable HgB Continue to follow Full code. Sister is surrogate. Can be transfered to medicine floor on continuous CPAP pending clearance by [facility] GI PPx: no Ix DVT PPx: SCDs
--- NOTE | 2019-09-06 12:37 | CON ---
DATE OF CONSULTATION: HISTORY OF PRESENT ILLNESS: Alan Zarate was just discharged from the hospital yesterday to the [place] [facility] on 2 L nasal O2, appears he was send there on a BiPAP, unclear whether ever he was put on, but I was told that his saturations were low on 2 L. He was therefore probably sent back over here. His x-ray shows cephalization. He has never had a formal sleep study, none is going to be done. At this stage, he is probably not going to go to the sleep lab. This morning, his saturations on 4 L were 96%. He wore the BiPAP all night. Denies any chest pain, chills, sweats, hemoptysis. PAST MEDICAL HISTORY: Morbid obesity, renal failure, diabetes, hypertension, respiratory failure, chronic morbid obesity hypoventilation syndrome, gout, rheumatoid arthritis. PREVIOUS SURGERIES: . His recent pacemaker inserted. His last sleep study on 08/2012 stated he needed a BiPAP at 17/13. MEDICATIONS: Home medicine includes 1. Torsemide 20. 2. Lipitor 40. 3. Amlodipine 5. SOCIAL HISTORY: Tobacco, former smoker. No alcohol intake. ALLERGIES: NONE. REVIEW OF SYSTEMS: Negative. PHYSICAL EXAMINATION: GENERAL: Morbidly obese gentleman, sats are 96% on 4 L, temperature 98, pulse 60, blood pressure 136/54. CHEST: Decreased breath sounds crackles. CARDIAC: Normal S1, S2. No gallops. ABDOMEN: No masses. LABORATORY DATA: H and H are 7 and 26. Platelet count is low at 82,000. He has chronic thrombocytopenia. Renal function, creatinine is 1.2, BUN 82, some of this may be prerenal. Respiratory failure, morbid obesity, cough, CHF, AICD in place, renal failure. PLAN: He has nocturnal BiPAP. Continue otherwise neb treatment, PT, supportive care, eventually placement. Consultation note, 70 minutes, 50% direct patient care. Job ID: [id number]
[2019-09-06] MEDS: Sodium Chloride 0.45% 1,000 ML IV SCH (15:07)
--- NOTE | 2019-09-06 16:27 | PDOC.EVN ---
Event Note - Event Note Event Note: Paged by nurse that patient is increasingly tachypnic and short of breath. On exam, tachypnic in 30-40s, complains of shortness of breath. Lung exam unchanged from this morning. Charge nurse spoke with Pulmonology who recommended to stay on 4L NC and Bipap while asleep. Defer to Pulmonology
[2019-09-06] MEDS: Atorvastatin Calcium 40 MG TAB PO SCH (22:00)
[2019-09-07 06:43] LABS: Hemoglobin 7.6 g/dL (14.0-18.0)
[2019-09-07 07:03] LABS: Anion Gap 13 mmol/L (10-20); BUN (Urea Nitrogen) 83 mg/dL (8.4-25.7); Calc. Creatinine Clearance 128 mL/min (70-130); Calcium 9.2 mg/dL (7.8-10.44); Carbon Dioxide 37 mmol/L (23-31); Chloride 101 mmol/L (98-107); Estimated GFR-MDRD 59; Glucose 78 mg/dL (80-115); Potassium 4.2 mmol/L (3.5-5.1); Sodium 147 mmol/L (136-145)
[2019-09-07] MEDS: Folic Acid 1 MG TAB PO SCH (08:09)
[2019-09-07] MEDS: Ferrous Sulfate 325 MG TAB PO SCH (08:09)
[2019-09-07] MEDS: Sodium Chloride 0.45% 1,000 ML IV SCH ×2 (08:10→11:05)
[2019-09-07 08:30] LABS: Base Excess 12.2 mEq/L (-2.0 to +3.0); Calcium, Ionized (venous) 1.21 mmol/L (1.16-1.32); Chloride (ABG LAB) 102 mmol/L (98-106); Hemoglobin (Hb) 8.7 g/dL (12.6-17.4); Potassium - ABG Lab 3.83 mmol/L (3.70-5.30); Sodium 145.8 mmol/L (133-146); pH (venous) 7.37 (7.32-7.43)
[2019-09-07 08:39] LABS: Actual Bicarbonate (HCO3v) 39 mEq/L (22-28)
--- NOTE | 2019-09-07 09:37 | PRG ---
DATE OF SERVICE: 09/07/2019 SUBJECTIVE: This morning, slightly more awake, responsive. OBJECTIVE: VITAL SIGNS: Temperature 97, pulse 60, respirations 18, saturations on 4 L, blood pressure 102/59. CHEST: Decreased breath sounds. No wheezing. CARDIAC: Normal S1 and S2. No gallops. ABDOMEN: No masses. LABORATORY DATA: Creatinine is 1.46, BUN 89. ASSESSMENT AND PLAN: Acute on chronic respiratory failure, morbid obesity, chronic obstructive pulmonary disease, severe deconditioning. Please understand that the patient's sleep study showed severe RADHA, which is corrected with BiPAP as outlined in the chart that is what he needs. Pulmonary/Critical Care will sign off. He needs to be placed on BiPAP and he needs to be discharged to the half-way on BiPAP because he was not wearing his BiPAP, he will readmit to the hospital. Job ID: [id number]
--- NOTE | 2019-09-07 12:53 | PDOC.HOSPP ---
- Subjective Encounter Date: 09/07/19 Encounter Time: 09:00 Subjective: no overnight events. this morning, sleeping on arrival with NC, tachypnic in 40s. On arousal, has no complaints and denies shortness of breath. remains tachypnic in 40s with accessory muscle use. - Objective Vital Signs & Weight: Vital Signs (12 hours) Temp Pulse Resp BP Pulse Ox Pulse Ox Pulse Ox 09/07/19 11:43 60 42 H 99 09/07/19 11:00 98.1 F 60 20 123/70 98 09/07/19 10:01 96 96 09/07/19 08:10 60 38 H 95 09/07/19 07:11 98 09/07/19 07:09 97.3 F L 60 18 102/59 L 91 L 09/07/19 07:07 60 20 98 09/07/19 04:30 97.7 F 60 20 113/68 94 L Weight Admit Weight 425 lb 6 oz Weight 399 lb 14.696 oz Most Recent Monitor Data Heart Rate from ECG 61 NIBP 127/62 NIBP BP-Mean 83 Respiration from ECG 14 SpO2 98 I&O: 09/06/19 09/07/19 09/08/19 06:59 06:59 06:59 Intake Total 860 1350 Output Total 1455 820 Balance -595 530 Result Diagrams: 09/07/19 06:34 09/07/19 06:34 Additional Labs: Accuchecks 09/07/19 09/07/19 09/07/19 11:22 04:27 00:33 POC Glucose 101 90 108 09/06/19 09/06/19 20:22 16:04 POC Glucose 127 H 114 H Hospitalist ROS - Review of Systems Constitutional: denies: fever, chills, sweats Respiratory: reports: SOB with excertion. denies: cough, dry, shortness of breath, hemoptysis, pleuritic pain, sputum, wheezing Cardiovascular: denies: chest pain, palpitations, orthopnea, paroxysmal noc. dyspnea Gastrointestinal: denies: nausea, vomiting, abdominal pain, diarrhea - Medication Medications: Active Medications Generic Name Dose Route Start Last Admin Trade Name Freq PRN Reason Stop Dose Admin Albuterol/Ipratropium 3 ml 09/06/19 13:00 09/07/19 07:07 Duoneb NEB 3 ml [id number] BHARATHI Administration Atorvastatin Calcium 40 mg 09/05/19 21:00 09/06/19 22:00 Lipitor PO 40 mg HS BHARATHI Administration Ferrous Sulfate 325 mg 09/06/19 08:00 09/07/19 08:09 Feosol PO 325 mg QAM-WM BHARATHI Administration Folic Acid 1 mg 09/06/19 09:00 09/07/19 08:09 Folvite PO 1 mg DAILY BHARATHI Administration Sodium Chloride 1,000 mls @ 50 mls/hr 09/05/19 20:00 09/07/19 11:05 1/2 Normal Saline IV Not Given .Q20H BHARATHI - Exam General Appearance: NAD, awake alert Neck: no JVD Heart: RRR, no murmur, no gallops Respiratory: CTAB, no wheezes, no rales Gastrointestinal: soft, non-tender, non-distended Extremities: 1+ LE edema Psychiatric: normal affect, normal behavior, A&O x 3 Hosp A/P (1) Morbid obesity with BMI of 50.0-59.9, adult Code(s): E66.01 - MORBID (SEVERE) OBESITY DUE TO EXCESS CALORIES; Z68.43 - BODY MASS INDEX (BMI) 50.0-59.9, ADULT Status: Acute (2) Chronic anemia Code(s): D64.9 - ANEMIA, UNSPECIFIED Status: Chronic (3) Hypoventilation syndrome Code(s): R06.89 - OTHER ABNORMALITIES OF BREATHING Status: Chronic - Plan #OHS #Severe RADHA #chronic hypoxic hypercapnic respiratory failure -acute type I respiratory failure resolved -VBG c/w chronic compensatory respiratory acidosis -continue Bipap qhs, NC during day as per pulm recs #HFmEF #hypernatremia -stable HF -hypernatremia improving -continue gentle 1/2NS #acute on chronic anemia Stable HgB Continue to follow Full code. Sister is surrogate. GI PPx: no Ix DVT PPx: SCDs ELOS: 2 nights
--- NOTE | 2019-09-07 17:40 | EKG ---
Test Reason : STAT Blood Pressure : / mmHG Vent. Rate : 060 BPM Atrial Rate : 059 BPM P-R Int : 000 ms QRS Dur : 164 ms QT Int : 540 ms P-R-T Axes : 000 097 -26 degrees QTc Int : 540 ms Atrial-paced rhythm with prolonged AV conduction Rightward axis Left bundle branch block Abnormal ECG When compared with ECG of 18-APR-2014 17:39, Electronic atrial pacemaker has replaced Sinus rhythm Left bundle branch block has replaced Right bundle branch block Confirmed by DR. Rebecca DIAZ ([id number]) on 09/07/2019 5:40:20 PM Referred By: Confirmed By:DR. Rebecca DIAZ
[2019-09-07] MEDS: Atorvastatin Calcium 40 MG TAB PO SCH (21:02)
[2019-09-08] MEDS: Sodium Chloride 0.45% 1,000 ML IV SCH (04:36)
[2019-09-08 06:40] LABS: Anion Gap 14 mmol/L (10-20); BUN (Urea Nitrogen) 83 mg/dL (8.4-25.7); Calc. Creatinine Clearance 123 mL/min (70-130); Calcium 9.1 mg/dL (7.8-10.44); Carbon Dioxide 35 mmol/L (23-31); Chloride 101 mmol/L (98-107); Estimated GFR-MDRD 56; Glucose 74 mg/dL (80-115); Magnesium 2.3 mg/dL (1.6-2.6); Potassium 4.8 mmol/L (3.5-5.1); Sodium 145 mmol/L (136-145)
[2019-09-08] MEDS: Folic Acid 1 MG TAB PO SCH (08:02)
[2019-09-08] MEDS: Ferrous Sulfate 325 MG TAB PO SCH (08:02)
--- NOTE | 2019-09-08 14:59 | PDOC.HOSPP ---
- Subjective Encounter Date: 09/08/19 Encounter Time: 10:00 Subjective: no overnight events. this morning, sleeping on encounter, breathing in 40s on 2L NC using accessory muscles. When awoken, continues to be tachypnic but has no compaints. - Objective Vital Signs & Weight: Vital Signs (12 hours) Temp Pulse Resp BP Pulse Ox 09/08/19 13:33 62 24 H 100 09/08/19 08:00 97.5 F L 62 20 121/63 94 L 09/08/19 06:57 60 24 H 98 09/08/19 04:03 98.1 F 60 19 120/66 95 Weight Admit Weight 425 lb 6 oz Weight 399 lb 14.696 oz Most Recent Monitor Data Heart Rate from ECG 61 NIBP 127/62 NIBP BP-Mean 83 Respiration from ECG 14 SpO2 98 I&O: 09/07/19 09/08/19 09/09/19 06:59 06:59 06:59 Intake Total 1350 2080 Output Total 820 1850 Balance 530 230 Result Diagrams: 09/07/19 06:34 09/08/19 06:16 Additional Labs: Accuchecks 09/08/19 09/08/19 09/07/19 11:33 04:07 20:42 POC Glucose 92 72 89 09/07/19 15:53 POC Glucose 101 Hospitalist ROS - Review of Systems Constitutional: denies: fever, chills, sweats Respiratory: denies: cough, dry, shortness of breath Cardiovascular: denies: chest pain, palpitations, orthopnea, paroxysmal noc. dyspnea Gastrointestinal: denies: nausea, vomiting, abdominal pain, diarrhea - Medication Medications: Active Medications Generic Name Dose Route Start Last Admin Trade Name Freq PRN Reason Stop Dose Admin Albuterol/Ipratropium 3 ml 09/06/19 13:00 09/08/19 13:33 Duoneb NEB 3 ml [id number] BHARATHI Administration Atorvastatin Calcium 40 mg 09/05/19 21:00 09/07/19 21:02 Lipitor PO Not Given HS BHARATHI Ferrous Sulfate 325 mg 09/06/19 08:00 09/08/19 08:02 Feosol PO 325 mg QAM-WM BHARATHI Administration Folic Acid 1 mg 09/06/19 09:00 09/08/19 08:02 Folvite PO 1 mg DAILY BHARATHI Administration Sodium Chloride 1,000 mls @ 50 mls/hr 09/05/19 20:00 09/08/19 04:36 1/2 Normal Saline IV 1,000 mls .Q20H BHARATHI Administration - Exam General Appearance: NAD General - other findings: drowsy Heart: RRR, no murmur, no gallops Respiratory: CTAB, no wheezes, no rales, no ronchi Respiratory - other findings: shallow breaths, diffusely reduced breath sounds, accessory musl, unchanged Gastrointestinal: soft, non-tender, non-distended, normal bowel sounds Extremities: 2+ LE edema Psychiatric: normal affect, normal behavior, A&O x 3 Hosp A/P (1) Morbid obesity with BMI of 50.0-59.9, adult Code(s): E66.01 - MORBID (SEVERE) OBESITY DUE TO EXCESS CALORIES; Z68.43 - BODY MASS INDEX (BMI) 50.0-59.9, ADULT Status: Acute (2) Chronic anemia Code(s): D64.9 - ANEMIA, UNSPECIFIED Status: Chronic (3) Hypoventilation syndrome Code(s): R06.89 - OTHER ABNORMALITIES OF BREATHING Status: Chronic - Plan #OHS #Severe RADHA #chronic hypoxic hypercapnic respiratory failure -continue Bipap during sleep, NC during day as per pulm recs #HFmEF #hypernatremia (resolved) -most recent echo shows LV reduced LV function; LE edema may be related to cor pulmonale due to chronic hypoxia -hypernatremia improving -continue gentle 1/2NS #acute on chronic anemia Stable HgB Continue to follow Full code. Sister is surrogate. Patient LTAC approved and can be placed over weekend per if patient improves GI PPx: no Ix DVT PPx: SCDs
[2019-09-08] MEDS: Atorvastatin Calcium 40 MG TAB PO SCH (20:14)
[2019-09-09] MEDS: Sodium Chloride 0.45% 1,000 ML IV SCH (04:00)
[2019-09-09 05:13] VITALS: BMI 62.4
[2019-09-09 05:40] LABS: Anion Gap 12 mmol/L (10-20); BUN (Urea Nitrogen) 82 mg/dL (8.4-25.7); Calc. Creatinine Clearance 135 mL/min (70-130); Calcium 9.2 mg/dL (7.8-10.44); Carbon Dioxide 35 mmol/L (23-31); Chloride 103 mmol/L (98-107); Estimated GFR-MDRD 62; Glucose 67 mg/dL (80-115); Potassium 4.9 mmol/L (3.5-5.1); Sodium 145 mmol/L (136-145)
[2019-09-09 07:38] VITALS: BP 119/65; TEMP 96.3
[2019-09-09] MEDS: Folic Acid 1 MG TAB PO SCH (08:18)
[2019-09-09] MEDS: Ferrous Sulfate 325 MG TAB PO SCH (08:18)
--- NOTE | 2019-09-09 08:53 | PDOC.HOSPP ---
- Subjective Encounter Date: 09/09/19 Encounter Time: 10:30 Subjective: Patient doing well this morning. No further tachypnea. Sating well on 3L NC. No complaints. - Objective Vital Signs & Weight: Vital Signs (12 hours) Temp Pulse Resp BP BP Pulse Ox 09/09/19 07:34 96.3 F L 60 18 119/65 92 L 09/09/19 04:06 97.5 F L 60 20 109/69 98 09/08/19 23:45 97.5 F L 60 20 90/59 L 100 09/08/19 23:32 69 24 H 98 09/08/19 23:30 98 Weight Admit Weight 425 lb 6 oz Weight 399 lb 0.587 oz Most Recent Monitor Data Heart Rate from ECG 61 NIBP 127/62 NIBP BP-Mean 83 Respiration from ECG 14 SpO2 98 I&O: 09/08/19 09/09/19 09/10/19 06:59 06:59 06:59 Intake Total 2080 Output Total 1850 1250 Balance 230 -1250 Result Diagrams: 09/07/19 06:34 09/09/19 05:05 Additional Labs: Accuchecks 09/09/19 09/08/19 09/08/19 04:03 19:11 16:26 POC Glucose 84 92 88 09/08/19 11:33 POC Glucose 92 Hospitalist ROS - Review of Systems ROS unobtainable: due to mental status - Medication Medications: Active Medications Generic Name Dose Route Start Last Admin Trade Name Vinceq PRN Reason Stop Dose Admin Albuterol/Ipratropium 3 ml 09/06/19 13:00 09/08/19 23:30 Duoneb NEB 3 ml [id number] BHARATHI Administration Atorvastatin Calcium 40 mg 09/05/19 21:00 09/08/19 20:14 Lipitor PO Not Given HS BHARATHI Ferrous Sulfate 325 mg 09/06/19 08:00 09/09/19 08:18 Feosol PO 325 mg QAM-WM BHARATHI Administration Folic Acid 1 mg 09/06/19 09:00 09/09/19 08:18 Folvite PO 1 mg DAILY BHARATHI Administration Sodium Chloride 1,000 mls @ 50 mls/hr 09/05/19 20:00 09/09/19 04:00 1/2 Normal Saline IV Not Given .Q20H BHARATHI - Exam General Appearance: NAD, awake alert ENT: moist mucosa Heart: RRR, no murmur, no gallops, no rubs Respiratory: CTAB, no wheezes, no rales, no ronchi Gastrointestinal: soft, non-tender, non-distended, normal bowel sounds Extremities: 1+ LE edema Psychiatric: normal affect Hosp A/P (1) Acute and chronic respiratory failure with hypoxia Code(s): J96.21 - ACUTE AND CHRONIC RESPIRATORY FAILURE WITH HYPOXIA Status: Acute (2) Acute on chronic combined systolic (congestive) and diastolic (congestive) heart failure Code(s): I50.43 - ACUTE ON CHRONIC COMBINED SYSTOLIC AND DIASTOLIC HRT FAIL Status: Acute (3) Morbid obesity with BMI of 50.0-59.9, adult Code(s): E66.01 - MORBID (SEVERE) OBESITY DUE TO EXCESS CALORIES; Z68.43 - BODY MASS INDEX (BMI) 50.0-59.9, ADULT Status: Acute (4) Hypoventilation syndrome Code(s): R06.89 - OTHER ABNORMALITIES OF BREATHING Status: Chronic (5) Chronic anemia Code(s): D64.9 - ANEMIA, UNSPECIFIED Status: Chronic (6) DELORES (acute kidney injury) Code(s): N17.9 - ACUTE KIDNEY FAILURE, UNSPECIFIED Status: Acute Plan: improved, near baseline - Plan Patient as stable as he is going to get. Does well on 2-3L NC most of the time, but needs BiPAP at night and occasionally he will need it during the day too if he gets tachypneic or hypoxic. Will transfer to LTAC.
--- NOTE | 2019-09-09 16:35 | DIS ---
DATE OF ADMISSION: 09/05/2019 DATE OF DISCHARGE: 09/09/2019 PRIMARY CARE PHYSICIAN: Alan Conner. REASON FOR ADMISSION: Hypoxic respiratory failure. DIAGNOSES AT DISCHARGE: 1. Acute on chronic respiratory failure with hypoxia, stable. 2. Acute on chronic combined systolic and diastolic congestive heart failure, stable. 3. Morbid obesity. 4. Hypoventilation syndrome. 5. Chronic anemia. 6. Acute kidney injury, improved. PROCEDURES: None. CONSULTATIONS: None. SUMMARY OF HOSPITAL COURSE: This is a 64-year-old male with multiple bounce backs to the hospital for CHF exacerbations with respiratory failure due to CHF and obstructive sleep apnea/hypoventilation syndrome. The patient was sent to SNF, but quickly returned when he desated. This resolved quickly in the ER when he was placed on Bipap. Eventually, it was determined the patient is going to require BiPAP at night and whenever he is lying down or sleeping from here on out. So, arrangements were made to send him to LT[facility] at [facility]. The patient was doing well the day of discharge, saturating well on 3 L nasal cannula after having been on BiPAP overnight and is stable for discharge. DISCHARGE MANAGEMENT: Discharged to [facility]. ACTIVITY: As tolerated. DIET: Healthy heart diet with Ensure high-protein muscle supplements twice a day. THERAPY: Occupational and physical therapy. EQUIPMENT SUPPLIES: BiPAP at night and when sleeping and or gets tachypneic and on nasal canula oxygen when he is not on the BiPAP usually between 2 and 4 L needed. DISCHARGE MEDICATIONS: 1. Acetaminophen as needed. 2. Norvasc 5 mg daily. 3. Atorvastatin 40 mg at night. 4. Ferrous sulfate 325 mg daily. 5. Folic acid 1 mg daily. 6. DuoNeb as needed. 7. Daily probiotic 250 mg daily. 8. Torsemide 20 mg daily. TIME SPENT: Arranging the details of this discharge took 32 minutes. Job ID: [id number] MTDD
== END 2019-09-09 13:00 | disposition short-term general hospital (02) | DRG 189 ==
LOC: IMCU/EMU 15:33 → T4-A 09-06 14:34
PROVIDERS: ADMIT Emergency Medicine; ATTEND Emergency Medicine
PROC: 5A09457 Assistance with Respiratory Ventilation, 24-96 Consecutive Hours, Continuous Positive Airway Pressure (ICD-10-PCS; principal; 2019-09-05)
DX: J96.01 Acute respiratory failure with hypoxia (principal); I50.43 Acute on chronic combined systolic (congestive) and diastolic (congestive) heart failure; I13.0 Hypertensive heart and chronic kidney disease with heart failure and stage 1 through stage 4 chronic kidney disease, or unspecified chronic kidney disease; E66.2 Morbid (severe) obesity with alveolar hypoventilation; N17.9 Acute kidney failure, unspecified; E87.0 Hyperosmolality and hypernatremia; E87.2 Acidosis; Z68.43 Body mass index [BMI] 50.0-59.9, adult; E11.22 Type 2 diabetes mellitus with diabetic chronic kidney disease; M06.9 Rheumatoid arthritis, unspecified; N18.9 Chronic kidney disease, unspecified; D63.1 Anemia in chronic kidney disease; J44.9 Chronic obstructive pulmonary disease, unspecified; R53.81 Other malaise; D69.6 Thrombocytopenia, unspecified; M10.9 Gout, unspecified; Z95.0 Presence of cardiac pacemaker
CPT/HCPCS: 36415; 36416; 36430; 71045; 80048; 82805; 83735; 83880; 85007; 85014; 85018; 85025; 85027; 90471; 90670; 93005; 93010; 94640; 94660; 94760; 96374; 96376; G0009; G0378; J1815; J1940; J7620